=== PATIENT | male | born 1955 | race Caucasian/White ===

== ENCOUNTER 2023-06-01 12:47 | Outpatient (OUT) | payer MEDICARE, MEDICAID, SELFPAY | END 2023-06-01 12:48 | disposition home or self-care (01) | PROVIDERS: PCP Podiatrist Foot & Ankle Surgery; Visit Provider Podiatrist Foot & Ankle Surgery | DX: L60.3 Nail dystrophy (principal); L60.8 Other nail disorders; E11.40 Type 2 diabetes mellitus with diabetic neuropathy, unspecified | CPT/HCPCS: 11721 ==

== ENCOUNTER 2023-06-13 13:02 | Outpatient (OUT) | payer MEDICARE, MEDICAID, SELFPAY | END 2023-06-13 13:03 | disposition home or self-care (01) | LOC: WC 13:03 | PROVIDERS: PCP Podiatrist Foot & Ankle Surgery; Visit Provider Physician Assistant | DX: L60.8 Other nail disorders (principal) | CPT/HCPCS: G0463 ==

== ENCOUNTER 2023-09-07 12:45 | Outpatient (OUT) | payer MEDICARE, MEDICAID, SELFPAY | END 2023-09-07 12:46 | disposition home or self-care (01) | LOC: WC 12:46 | PROVIDERS: PCP Podiatrist Foot & Ankle Surgery; Visit Provider Podiatrist Foot & Ankle Surgery | DX: I73.9 Peripheral vascular disease, unspecified (principal); L60.3 Nail dystrophy; E11.40 Type 2 diabetes mellitus with diabetic neuropathy, unspecified | CPT/HCPCS: 11721 ==

== ENCOUNTER 2023-11-30 14:43 | Outpatient (OUT) | payer MEDICARE, MEDICAID, SELFPAY ==
--- OUTSIDE RECORDS SUMMARY | 2023-11-30 15:02 | XMS_ITS | CCD ---
Author Name Unknown Address [address] [place] [id number] Organization [facility] Care Team Providers Care Collection Teller Name Role Phone RICHY OWENS Attending Unavailable BRENNA, DR BARTNO Primary Care Unavailable RICHY OWENS Admitting Unavailable RICHY OWENS Attending Unavailable BRENNA, DR BARTON Primary Care Unavailable RICHY OWENS Admitting Unavailable RICHY OWENS Attending Unavailable BRENNA, DR BARTON Primary Care Unavailable RICHY OWENS Admitting Unavailable RICHY OWENS Attending Unavailable BRENNA, DR BARTON Primary Care Unavailable RICHY OWENS Admitting Unavailable MANJULA NEAL Attending Unavailable Scar Handy MD Primary Care Provider Problems Active Problems Problem Classification Problem Date Documented Da te Episodic/Chronic Cataract (1 source) Unspecified cataract; Translations: [UNSPECIFIED CATARACT] Onset: 09-02-2022 Chronic Diabetes mellitus with complications (7 sources) Type 2 diabetes mellitus with diabetic neuropathy, unspecified; Translations: [Type 2 diabetes mellitus with hyperglycemia] Onset: 05-28-2022 Chronic Mood disorders (1 source) Mood disorders; Translations: [DEPRESSION UNSPECIFIED] Onset: 09-02-2022 Other diseases of veins and lymphatics (1 source) Lymphedema, not elsewhere classified; Translations: [LYMPHEDEMA NOT ELSEWHERE CLASSIFIED] Onset: 09-02-2022 Chronic Other nutritional; endocrine; and metabolic disorders (1 source) Morbid (severe) obesity due to excess calories; Translations: [MORBID SEVERE OBES D/T EXCESS ARMANDO] Onset: 09-02-2022 Chronic Peripheral and visceral atherosclerosis (1 source) Peripheral vascular disease, unspecified; Translations: [PERIPHERAL VASCULAR DISEASE UNS] Onset: 09-02-2022 Chronic Past or Other Problems Problem Classification Problem Date Documented Date Episodic/Chronic Mycoses (1 source) Tinea unguium; Translations: [TINEA UNGUIUM] Onset: 09-02-2022 Episodic Other diseases of veins and lymphatics (1 source) Venous insufficiency (chronic) (peripheral); Translations: [VENOUS INSUFF CHRONIC PERIPHERAL] Onset: 09-02-2022 Episodic Other skin disorders (5 sources) Corns and callosities; Translations: [CORNS AND CALLOSITIES] Onset: 09-02-2022 Episodic Other skin disorders (1 source) Nail dystrophy; Translations: [NAIL DYSTROPHY] Onset: 11-30-2022 Episodic Other skin disorders (1 source) Onycholysis; Translations: [ONYCHOLYSIS] Onset: 09-02-2022 Episodic Residual codes; unclassified (1 source) Localized edema; Translations: [LOCALIZED EDEMA] Onset: 11-30-2022 Episodic Spondylosis; intervertebral disc disorders; other back problems (1 source) Sciatica, unspecified side; Translations: [SCIATICA UNSPECIFIED SIDE] Onset: 09-02-2022 Episodic Results Test Name Value Interpretation Reference Range Facil ity Hemoglobin A1Con 02-04-2022 HEMOGLOBIN A1c 7.0 % of total Hgb High <5.7 No rthern [place] [facility] [employer] Intern Comment on above: Order Comment: [facility] performed at: [facility], [address] [place] [address], [address] [place] [address], [id number], [employer] Specialist: Josep Amos MD [facility] Collection Date/Time: [facility] Results Received Date/Time: [facility] Reported Date/Time: Result Comment: For someone without known diabetes, a hemoglobin A1c value of 6.5% or greater indicates that they may have diabetes and this should be confirmed with a follow-up test. For someone with known diabetes, a value <7% indicates that their diabetes is well controlled and a value greater than or equal to 7% indicates suboptimal control. A1c targets should be individualized based on duration of diabetes, age, comorbid conditions, and other considerations. Currently, no consensus exists regarding use of hemoglobin A1c for diagnosis of diabetes for children. Performed By: #### 1 0231A, 968T, A1C, 42A #### [facility] [address] [place] [address] Q - CBC W/DIFF AND PLTon BASOABS 39 cells/uL Normal 0-200 [facility] Specialist Comment on above: Order Comment: [facility] performed at: [employer], [address] [facility], [address] [place] [address], [address] [place] [address], [employer] Specialist: Josep Amos MD [facility] Collection Date/Time: [facility] Results Received Date/Time: [facility] Reported Date/Time: Performed By: #### 1 0231A, 968T, A1C, 42A #### [facility] [address] [place] [address] Basophils/100 WBC (Bld) 0.7 % Normal [facility] Specialist Comment on above: Order Comment: [facility] performed at: [employer] [facility] [employer], [facility], [address] [place] [address], [address] [place] [address], [address] [place] [address], [employer] Specialist: Josep Amos MD [facility] Collection Date/Time: [facility] Results Received Date/Time: [facility] Reported Date/Time: Performed By: #### 1 0231A, 968T, A1C, 42A #### [facility] [address] [place] [address] EOSABS 218 cells/uL Normal 15-500 [facility] Specialist Comment on above: Order Comment: [facility] performed at: [employer], [facility], [address] [facility], [address] [place] [address], [address] [place] [address], [employer] Specialist: Josep Amos MD [facility] Date/Time: [facility] Results Received Date/Time: [facility] Reported Date/Time: Performed By: #### 1 0231A, 968T, A1C, 42A #### [facility] [address] [place] [address] Eosinophils/100 WBC (Bld) 3.9 % Normal [facility] Specialist Comment on above: Order Comment: [facility] performed at: [employer], [facility], [address] [place] [address], [address] [place] [address], [address] [place] [address], [employer] Specialist: Josep Amos MD [facility] Date/Time: [facility] Results Received Date/Time: [facility] Reported Date/Time: Performed By: #### 1 0231A, 968T, A1C, 42A #### [facility] [address] [place] [address] Erythrocyte distribution width (RBC) [Ratio] 13.2 % Normal 11.0-15.0 [facility] Management Retail Intern Comment on above: Order Comment: [facility] performed at: [employer], [facility], [address] [facility], [address] [place] [address], [address] [place] [address], [employer] Specialist: Josep Amos MD [facility] Date/Time: [facility] Results Received Date/Time: [facility] Reported Date/Time: Performed By: #### 1 0231A, 968T, A1C, 42A #### [facility] [address] [place] [address] Hematocrit (Bld) [Volume fraction] 39.4 % Normal 38.5-50.0 [facility] Management [employer] Intern Comment on above: Order Comment: [facility] performed at: [facility], [address] [facility], [address] [place] [address], [address] [place] [address], [employer] Specialist: Josep Amos MD [facility] Date/Time: [facility] Results Received Date/Time: [facility] Reported Date/Time: Performed By: #### 1 0231A, 968T, A1C, 42A #### [facility] [address] [place] [address] Hemoglobin (Bld) [Mass/Vol] 13.1 g/dL Low 13.2-17.1 [facility] Management Retail Intern Comment on above: Order Comment: [facility] performed at: [employer], [facility], [address] [facility], [address] [place] [address], [address] [place] [address], [employer] Specialist: Josep Amos MD [facility] Date/Time: [facility] Results Received Date/Time: [facility] Reported Date/Time: Performed By: #### 1 0231A, 968T, A1C, 42A #### [facility] [address] [place] [address] Lymphocytes (Bld) [#/Vol] 1.288 10*3/uL Normal 850-3900 [facility] Management Retail Intern Comment on above: Order Comment: [facility] performed at: [employer], [facility], [address] [place] [address], [address] [place] [address], [address] [place] [address], [employer] Specialist: Josep Amos MD [facility] Date/Time: [facility] Results Received Date/Time: [facility] Reported Date/Time: Performed By: #### 1 0231A, 968T, A1C, 42A #### [facility] [address] [place] [address] Lymphocytes/100 WBC (Bld) 23.0 % Normal [facility] Management Retail Intern Comment on above: Order Comment: [facility] performed at: [employer], [facility], [address] [place] [address], [address] [place] [address], [address] [place] [address], [employer] Specialist: Josep Amos MD [facility] Date/Time: [facility] Results Received Date/Time: [facility] Reported Date/Time: Performed By: #### 1 0231A, 968T, A1C, 42A #### [facility] [address] [place] [address] MCH (RBC) [Entitic mass] 29.2 pg Normal 27.0-33.0 [facility] Management Retail Intern Comment on above: Order Comment: [facility] performed at: [facility], [address] [facility], [address] [place] [address], [address] [place] [address], [employer] Specialist: Josep Amos MD [facility] Date/Time: [facility] Results Received Date/Time: [facility] Reported Date/Time: Performed By: #### 1 0231A, 968T, A1C, 42A #### [facility] [address] [place] [address] MCHC (RBC) [Mass/Vol] 33.2 g/dL Normal 32.0-36.0 [facility] Specialist Comment on above: Order Comment: [facility] performed at: [employer], [facility], [address] , [address] [place] [address], [address] [place] [address], [employer] Specialist: Josep Amos MD [facility] Date/Time: [facility] Results Received Date/Time: [facility] Reported Date/Time: Performed By: #### 1 0231A, 968T, A1C, 42A #### [facility] [address] [place] [address] MCV (RBC) [Entitic vol] 87.9 fL Normal 80.0-100.0 [facility] [employer] Intern Comment on above: Order Comment: [facility] performed at: [employer], [facility], [address] , [address] [place] [address], [address] [place] [address], [employer] Specialist: Josep Amos MD [facility] Date/Time: [facility] Results Received Date/Time: [facility] Reported Date/Time: Performed By: #### 1 0231A, 968T, A1C, 42A #### [facility] [address] [place] [address] MONOABS 414 cells/uL Normal 200-950 [facility] Management Retail Intern Comment on above: Order Comment: [facility] performed at: [employer], [address] , [address] [place] [address], [address] [place] [address], [employer] Specialist: Josep Amos MD [facility] Date/Time: [facility] Results Received Date/Time: [facility] Reported Date/Time: Performed By: #### 1 0231A, 968T, A1C, 42A #### [facility] [address] [place] [address] Monocytes/100 WBC (Bld) 7.4 % Normal [facility] [employer] Intern Comment on above: Order Comment: [facility] performed at: [employer], [facility], [address] [place] [address], [address] [place] [address], [address] [place] [address], [employer] Specialist: Josep Amos MD [facility] Date/Time: [facility] Results Received Date/Time: [facility] Reported Date/Time: Performed By: #### 1 0231A, 968T, A1C, 42A #### [facility] [address] [place] [address] Neutrophils (Bld) [#/Vol] 3.64 10*3/uL Normal 3851-1304 [facility] Management Retail Intern Comment on above: Order Comment: [facility] performed at: [employer], [facility], [address] [place] [address], [address] [place] [address], [address] [place] [address], [employer] Specialist: Josep Amos MD [facility] Date/Time: [facility] Results Received Date/Time: [facility] Reported Date/Time: Performed By: #### 1 0231A, 968T, A1C, 42A #### [facility] [address] [place] [address] Neutrophils/100 WBC (Bld) 65 % Normal [facility] Management [employer] Intern Comment on above: Order Comment: [facility] performed at: [facility], [address] [place] [address], [address] [place] [address], [address] [place] [address], [employer] Specialist: Josep Amos MD [facility] Collection Date/Time: [facility] Results Received Date/Time: [facility] Reported Date/Time: Performed By: #### 1 0231A, 968T, A1C, 42A #### [facility] [address] [place] [address] Platelet mean volume (Bld) [Entitic vol] 10.4 fL Normal 7.5-12.5 [facility] Management Retail Intern Comment on above: Order Comment: [facility] performed at: [employer], [facility], [address] , [address] [place] [place], [address] [place] [address], [employer] Specialist: Josep Amos MD [facility] Date/Time: [facility] Results Received Date/Time: [facility] Reported Date/Time: Performed By: #### 1 0231A, 968T, A1C, 42A #### [facility] [address] [place] [address] Platelets (Bld) [#/Vol] 208 10*3/uL Normal 140-400 [facility] Comment on above: Order Comment: [facility] performed at: [employer], [facility], [address] [facility], [address] [place] [address], [address] [place] [address], [employer] Specialist: Josep Amos MD [facility] Date/Time: [facility] Results Received Date/Time: [facility] Reported Date/Time: Performed By: #### 1 0231A, 968T, A1C, 42A #### [facility] [address] [place] [address] RBC (Bld) [#/Vol] 4.48 10*6/uL Normal 4.20-5.80 [facility] Comment on above: Order Comment: [facility] performed at: [employer], [facility], [address] [facility], [address] [place] [address], [address] [place] [address], [employer] Specialist: Josep Amos MD [facility] Collection Date/Time: [facility] Results Received Date/Time: [facility] Reported Date/Time: Performed By: #### 1 0231A, 968T, A1C, 42A #### [facility] [address] [place] [address] WBC (Bld) [#/Vol] 5.6 10*3/uL Normal 3.8-10.8 [facility] Comment on above: Order Comment: [facility] performed at: [employer], [facility], [address] [place] [address], [address] [place] [address], [address] [place] [address], [employer] Specialist: Josep Amos MD [facility] Date/Time: [facility] Results Received Date/Time: [facility] Reported Date/Time: Performed By: #### 1 0231A, 968T, A1C, 42A #### [facility] [address] [place] [address] Q - COMPREHENSIVE METABOLIC PANEL W/EGFRon 02-04-2022 Albumin [Mass/Vol] 4.1 g/dL Normal 3.6-5.1 [facility] Comment on above: Order Comment: [facility] performed at: [employer], [facility], [address] [place] [address], [address] [place] [address], [address] [place] [address], [employer] Specialist: Josep Amos MD [facility] Collection Date/Time: [facility] Results Received Date/Time: [facility] Reported Date/Time: Performed By: #### 1 0231A, 968T, A1C, 42A #### [facility] [address] [place] [address] Albumin/Globulin [Mass ratio] 1.6 {ratio} Normal 1.0-2.5 [facility] Specialist Comment on above: Order Comment: [facility] performed at: [employer], [facility], [address] [place] [address], [address] [place] [address], [address] [place] [address], [employer] Specialist: Josep Amos MD [facility] Collection Date/Time: [facility] Results Received Date/Time: [facility] Reported Date/Time: Performed By: #### 1 0231A, 968T, A1C, 42A #### [facility] [address] [place] [address] ALP [Catalytic activity/Vol] 76 U/L Normal 35-144 [facility] Management [employer] Intern Comment on above: Order Comment: [facility] performed at: [employer], [address] [place] [address], [address] [place] [address], [address] [place] [address], [employer] Specialist: Josep Amos MD [facility] Date/Time: [facility] Results Received Date/Time: [facility] Reported Date/Time: Performed By: #### 1 0231A, 968T, A1C, 42A #### [facility] [address] [place] [address] ALT [Catalytic activity/Vol] 21 U/L Normal 9-46 [facility] Management [facility] Intern Comment on above: Order Comment: [facility] performed at: [employer], [address] [place] [address], [address] [place] [address], [phone], [employer] Specialist: Josep Amos MD [facility] Date/Time: [facility] Results Received Date/Time: [facility] Reported Date/Time: Performed By: #### 1 023, 968T, A1C, 42A #### [facility] [address] [place] [address] AST [Catalytic activity/Vol] 16 U/L Normal 10-35 [facility] Management Retail Intern Comment on above: Order Comment: [facility] performed at: [employer], [address] [place] [address], [address] [place] [address], [address] [place] [address], [employer] Specialist: Josep Amos MD [facility] Date/Time: [facility] Results Received Date/Time: [facility] Reported Date/Time: Performed By: #### 1 023, 968T, A1C, 42A #### [facility] [address] [place] [address] Bilirubin [Mass/Vol] 0.6 mg/dL Normal 0.2-1.2 [facility] Management [employer] Intern Comment on above: Order Comment: [facility] performed at: [facility], [facility], [address] [place] [address], [address] [place] [address], [address] [place] [address], [employer] Specialist: Josep Amos MD [facility] Date/Time: [facility] Results Received Date/Time: [facility] Reported Date/Time: Performed By: #### 1 0231A, 968T, A1C, 42A #### [facility] [address] [place] [address] BUN/CREA 26 NOT APPLICABLE Normal 6-22 [facility] Comment on above: Order Comment: [facility] performed at: [employer], [address] , [address] [place] [address], [address] [place] [address], [employer] Specialist: Josep Amos MD [facility] Date/Time: [facility] Results Received Date/Time: [facility] Reported Date/Time: Performed By: #### 1 0231A, 968T, A1C, 42A #### [facility] [address] [place] [address] Calcium [Mass/Vol] 9.0 mg/dL Normal 8.6-10.3 [facility] Comment on above: Order Comment: [facility] performed at: [facility], [facility], [address] [facility], [address] [place] [address], [address] [place] [address], [employer] Specialist: Josep Amos MD [facility] Collection Date/Time: [facility] Results Received Date/Time: [facility] Reported Date/Time: Performed By: #### 1 0231A, 968T, A1C, 42A #### [facility] [address] [place] [address] Chloride [Moles/Vol] 105 mmol/L Normal 98-110 [facility] Comment on above: Order Comment: [facility] performed at: [employer], [facility], [address] , [address] [place] [address], [address] [place] [address], [employer] Specialist: Josep Amos MD [facility] Date/Time: [facility] Results Received Date/Time: [facility] Reported Date/Time: Performed By: #### 1 0231A, 968T, A1C, 42A #### [facility] [address] [place] [address] CO2 [Moles/Vol] 29 mmol/L Normal 20-32 [facility] Management Retail Intern Comment on above: Order Comment: [facility] performed at: [employer], [facility], [address] [place] [address], [address] [place] [address], [phone], [employer] Specialist: Josep Amos MD [facility] Date/Time: [facility] Results Received Date/Time: [facility] Reported Date/Time: Performed By: #### 1 0231A, 968T, A1C, 42A #### [facility] [address] [place] [address] Creatinine [Mass/Vol] 0.92 mg/dL Normal 0.70-1.25 [facility] Management [facility] Intern Comment on above: Order Comment: [facility] performed at: [employer], [facility], [address] [place] [address], [address] [place] [address], [address] [place] [address], [employer] Specialist: Josep Amos MD [facility] Date/Time: [facility] Results Received Date/Time: [facility] Reported Date/Time: Result Comment: For patients >49 years of age, the reference limit for Creatinine is approximately 13% higher for people identified as -Trinid[place]. Performed By: #### 1 0231A, 968T, A1C, 42A #### [facility] [address] [place] [address] eGFRAA ([facility]) 102 mL/min/1.73m2 Normal > OR = 60 [facility] Comment on above: Order Comment: [facility] performed at: [employer], [facility], [address] [facility], [address] [place] [address], [phone], [employer] Specialist: Josep Amos MD [facility] Date/Time: [facility] Results Received Date/Time: [facility] Reported Date/Time: Performed By: #### 1 0231A, 968T, A1C, 42A #### [facility] [address] [place] [address] eGFRNAA ([facility]) 88 mL/min/1.73m2 Normal > OR = 60 [facility] Comment on above: Order Comment: [facility] performed at: [employer], [facility], [address] [place] [address], [address] [place] [address], [address] [place] [address], [employer] Specialist: Josep Amos MD [facility] Date/Time: [facility] Results Received Date/Time: [facility] Reported Date/Time: Performed By: #### 1 0231A, 968T, A1C, 42A #### [facility] [address] [place] [address] Globulin (S) [Mass/Vol] 2.5 g/dL Normal 1.9-3.7 [facility] Specialist Comment on above: Order Comment: [facility] performed at: [employer], [facility], [address] [place] [address], [address] [place] [address], [address] [place] [address], [employer] Specialist: Josep Amos MD [facility] Date/Time: [facility] Results Received Date/Time: [facility] Reported Date/Time: Performed By: #### 1 0231A, 968T, A1C, 42A #### [facility] [address] [place] [address] Glucose [Mass/Vol] 131 mg/dL High 65-99 [facility] Comment on above: Order Comment: [facility] performed at: [employer], [facility], [address] [place] [address], [address] [place] [address], [address] [place] [address], [employer] Specialist: Josep Amos MD [facility] Date/Time: [facility] Results Received Date/Time: [facility] Reported Date/Time: Result Comment: Fasting reference interval For someone without known diabetes, a glucose value >125 mg/dL indicates that they may have diabetes and this should be confirmed with a follow-up test. Performed By: #### 1 0231A, 968T, A1C, 42A #### [facility] Default [address] [place] [address] Potassium [Moles/Vol] 4.0 mmol/L Normal 3.5-5.3 [facility] Management Retail Intern Comment on above: Order Comment: [facility] Testing performed at: [facility], [address] [facility], [address] [place] [address], [address] [place] [address], [employer] Specialist: Josep Amos MD [facility] Collection Date/Time: [facility] Results Received Date/Time: [facility] Reported Date/Time: Performed By: #### 1 0231A, 968T, A1C, 42A #### [facility] [address] [place] [address] Protein [Mass/Vol] 6.6 g/dL Normal 6.1-8.1 [facility] Management Retail Intern Comment on above: Order Comment: [facility] performed at: [facility], [address] [place] [address], [address] [place] [address], [address] [place] [address], [employer] Specialist: Josep Amos MD [facility] Collection Date/Time: [facility] Results Received Date/Time: [facility] Reported Date/Time: Performed By: #### 1 0231A, 968T, A1C, 42A #### [facility] [address] [place] [address] Sodium [Moles/Vol] 140 mmol/L Normal 135-146 [facility] Management Retail Intern Comment on above: Order Comment: [facility] performed at: [facility], [address] [facility], [address] [place] [address], [address] [place] [address], [employer] Specialist: Josep Amos MD [facility] Date/Time: [facility] Results Received Date/Time: [facility] Reported Date/Time: Performed By: #### 1 0231A, 968T, A1C, 42A #### [facility] [address] [place] [address] Urea nitrogen [Mass/Vol] 24 mg/dL Normal 7-25 [facility] Management Retail Intern Comment on above: Order Comment: [facility] performed at: [employer], [facility], [address] , [address] [place] [address], [address] [place] [address], [employer] Specialist: Josep Amos MD [facility] Date/Time: [facility] Results Received Date/Time: [facility] Reported Date/Time: Performed By: #### 1 0231A, 968T, A1C, 42A #### [facility] [address] [place] [address] Q - Lipid Panelon 02-04-2022 Cholesterol [Mass/Vol] 123 mg/dL Normal <200 [facility] Management [employer] Intern Comment on above: Order Comment: [facility] performed at: [employer], [facility], [address] , [address] [place] [address], [address] [place] [address], [employer] Specialist: Josep Amos MD [facility] Date/Time: [facility] Results Received Date/Time: [facility] Reported Date/Time: Performed By: #### 1 0231A, 968T, A1C, 42A #### [facility] [address] [place] [address] Cholesterol in HDL [Mass/Vol] 30 mg/dL Low > OR = 40 [place] Management Retail Intern Comment on above: Order Comment: [facility] performed at: [employer], [facility], [address] , [address] [place] [address], [address] [place] [address], [employer] Specialist: Josep Amos MD [facility] Date/Time: [facility] Results Received Date/Time: [facility] Reported Date/Time: Performed By: #### 1 0231A, 968T, A1C, 42A #### [facility] [address] [place] [address] Cholesterol in LDL [Mass/Vol] 76 mg/dL Normal [facility] Intern Comment on above: Order Comment: [facility] performed at: [employer], [facility], [address] , [address] [place] [address], [address] [place] [address], [employer] Specialist: Josep Amos MD [facility] Date/Time: [facility] Results Received Date/Time: [facility] Reported Date/Time: Result Comment: Refe rence range: <100 Desirable range <100 mg/dL for primary prevention; <70 mg/dL for patients with CHD or diabetic patients with > or = 2 CHD risk factors. LDL-C is now calculated using the Emelia calculation, which is a validated novel method providing better accuracy than the Friedewald equation in the estimation of LDL-C. Micky OCHOA et al. ROSEMARIE. 2013;310(19): 0100-4887 (http://education.[employer]/faq/BBM618) Performed By: #### 1 0231A, 968T, A1C, 42A #### [facility] [address] [place] [address] Cholesterol.total/C holesterol in HDL [Mass ratio] 4.1 {ratio} Normal <5.0 [facility] Management [employer] Intern Comment on above: Order Comment: [facility] performed at: [facility], [address] [facility], [address] [place] [address], [phone], [employer] Specialist: Josep Amos MD [facility] Date/Time: [facility] Results Received Date/Time: [facility] Reported Date/Time: Performed By: #### 1 0231A, 968T, A1C, 42A #### [facility] [address] [place] [address] NON HDL CHOLESTEROL 93 mg/dL (calc) Normal <130 [facility] Management Retail Intern Comment on above: Order Comment: [facility] performed at: [employer], [facility], [address] , [address] [place] [address], [phone], [employer] Specialist: Josep Amos MD [facility] Date/Time: [facility] Results Received Date/Time: [facility] Reported Date/Time: Result Comment: For patients with diabetes plus 1 major ASCVD risk factor, treating to a non-HDL-C goal of <100 mg/dL (LDL-C of <70 mg/dL) is considered a therapeutic option. Performed By: #### 1 0231A, 968T, A1C, 42A #### [facility] [address] [place] [address] Triglyceride [Mass/Vol] 89 mg/dL Normal <150 [facility] Management Retail Intern Comment on above: Order Comment: [facility] performed at: [facility], [address], [address] [place], [address], [employer] Specialist: Josep Amos MD [facility] Date/Time: [facility] Results Received Date/Time: [facility] Reported Date/Time: Performed By: #### 1 0231A, 968T, A1C, 42A #### [facility] [address] [place] [address] Encounters Encounter Date Encounter Type Care Provider Facility Start: 11-16-2023 Telephone encounter [facility] Comment on above: Appointment Start: 11-08-2023 End: 11-08-2023 ambulatory MANJULA NEAL Not Available Start: 03-02-2023 End: 03-03-2023 ambulatory [facility] Facility:[facility]1 Start: 11-24-2022 End: 11-25-2022 ambulatory [facility] Facility:[facility] Start: 08-25-2022 End: 08-26-2022 ambulatory [facility] Facility:[facility]1 Start: 05-19-2022 End: 05-20-2022 ambulatory [facility] Facility:H1 Plan of Treatment Date Care Activity Detail Author Start: 12-09-2023 End: 12-09-2023 Patient encounter procedure 12/09/2023 11:00 AM EST Office Visit [facility] [address] [place] [address] Vidal Curry MD [address] [place] [facility] [place] [id number] [facility] Start: 06-24-2023 Influenza vaccination Influenza Vaccine [facility] Start: 2022 Fall Risk Screening Fall Risk Screening [facility] Start: 2007 Administration of varicella zoster vaccine Zoster (Shingles) Vaccine (1 of 2) [facility] Start: 1976 DTaP,Tdap and Td Vaccines (1 - Tdap) DTaP,Tdap and Td Vaccines (1 - Tdap) [facility] Start: 1975 Adult BMI Screening Adult BMI Screening [facility] Start: 1969 Depression Screening Depression Screening [facility] Start: 1969 Tobacco Screening Tobacco Screening [facility] Payers Date Payer Category Payer Medicaid [facility]ICA[facility] [place] MEDICA[place] 2022-Present [address] [place] [address] [id number] 1957 Medicaid [id number] 1957 Medicare [id number] 1959 Unknown [id number] 1957 Unknown [id number] 1957 Unknown [id number] 1957 Unknown [id number] 1957 Unknown [id number] 1957 Unknown [id number] Social History Date Type Detail Facility [facility] Start: 04-04-2019 End: 12-04-2020 History of Social function [facility] Start: 04-04-2019 End: 12-04-2020 Childcare [facility] Childcare Unknown [facility] Start: 1955 Sex Assigned At Not on file [facility] Note 11-16-2023 Telephone Encounter - Kristan Cunningham - 11/16/2023 2:40 PM ESTTelephone Encounter - ASA Jimenez - 11/16/2023 2:40 PM ESTTelephone Encounter - Cindy Peter CMA - 11/16/2023 2:40 PM EST Note Date & Type Note Facility 11-16-2023 Miscellaneous Notes Formattin g of this note might be different from the original. This is notification that we have received a referral for the patient. Please reach out to schedule new patient appointment in your office. Please check the referral tab in appt desk for details and to make sure to assign referral or schedule off of it. Thank you. LMOM for the patient to call and schedule their RN INTERNATIONAL appointment with [facility]. Phoned pt, lm on vm to contact office to schedule appt for RN INTERNATIONAL referral documented in this encounter [facility] Telephone encounter Note 11-16-2023 Telephone Encounter - Kristandelores Cunningham - 11/16/2023 2:40 PM EST Note Date & Type Note Facility 11-16-2023 Telephone encounter Note This is notification that we have received a referral for the patient. Please reach out to schedule new patient appointment in your office. Please check the referral tab in appt desk for details and to make sure to assign referral or schedule off of it. Thank you. [facility] Telephone encounter Note 11-16-2023 Telephone Encounter - ASA Jimenez - 11/16/2023 2:40 PM EST Note Date & Type Note Facility 11-16-2023 Telephone encount er Note LMOM for the patient to call and schedule their RN INTERNATIONAL appointment with [facility] Telephone encounter Note 11-16-2023 Telephone Encounter - Cindy Peter CMA - 11/16/2023 2:40 PM EST Note Date & Type Note Facility 11-16-2023 Telephone encount er Note Phoned pt, lm on to contact office to schedule appt for RN INTERNATIONAL referral [facility] Instructions Note Date & Type Note Facility Instructions Not on filedocumented in this en counter [facility] Summary Purpose Family History No Family History Records FoundNo Family History Records FoundNo Family History Records Found Advance Directives No Advanced Directives Records FoundNo Advanced Directives Records FoundNo Advanced Directives Records Found Additional Source Comments (unrecognized sect ion and content) No Status Records FoundNo Status Records FoundNo Status Records Found INFORMATION SOURCE (unrecogn ized section and content) DATE CREATED AUTHOR 02/06/2022 [facility] d[facility] Specialist DATE CREATED AUTHOR AUTHOR'S ORGANIZ ATION 03/03/2023 [facility] DATE CREATED AUTHOR AUTHOR'S ORGANIZ ATION 11/09/2023 [facility] Specialists EPIC Reason for Visit (unrecogniz ed section and content) Reason Onset Date Comments Appointment 11/16/2023 Care Teams (unrecognized sec tion and content) Collection Teller Relationship Specialty Start Date End Date Scar Handy MD [address] [place] [address] PCP - General Family Medicine 04/08/17 FOR RECORDS PERTAINING TO PATIENTS WHO ARE OR HAVE BEEN ENROLLED IN A CHEMICAL DEPENDENCY/SUBSTANCEABUSE PROGRAM, SOME INFORMATION MAY BE OMITTED. This clinical summary was aggregated from multiple sources. Caution should be exercised in using it in the provision of clinical care. This summary normalizes information from multiple sources, and as a consequence, information in this document may materially change the coding, format and clinical context of patient data. In addition, data may be omitted in some cases. CLINICAL DECISIONS SHOULD BE BASED ON THE PRIMARY CLINICAL RECORDS. [email or web address] [email or web address]. provides no warranty or guarantee of the accuracy or completeness of information in this document.
== END 2023-11-30 14:44 | disposition home or self-care (01) ==
LOC: WC 14:43
PROVIDERS: PCP Podiatrist Foot & Ankle Surgery; Visit Provider Podiatrist Foot & Ankle Surgery
DX: L60.3 Nail dystrophy (principal); E11.40 Type 2 diabetes mellitus with diabetic neuropathy, unspecified; I73.9 Peripheral vascular disease, unspecified
CPT/HCPCS: 11721

== ENCOUNTER 2024-02-29 15:17 | Outpatient (OUT) | payer MEDICARE, MEDICAID, SELFPAY | END 2024-02-29 15:18 | disposition home or self-care (01) | LOC: WC 15:17 | PROVIDERS: PCP Podiatrist Foot & Ankle Surgery; Visit Provider Podiatrist Foot & Ankle Surgery | DX: E11.40 Type 2 diabetes mellitus with diabetic neuropathy, unspecified (principal); E11.65 Type 2 diabetes mellitus with hyperglycemia; L60.3 Nail dystrophy | CPT/HCPCS: 11721 ==

== ENCOUNTER 2024-06-06 12:53 | Outpatient (OUT) | payer MEDICARE, SELFPAY ==
--- OUTSIDE RECORDS SUMMARY | 2024-06-06 13:16 | XMS_ITS | CCD ---
Author Organization [facility] Care Team Providers Care Human Capital Manager Name Role Phone RICHY OWENS Attending Alfa HANDY, DR BARTON Primary Care Unavailable RICHY OWENS Admitting Unavailable RICHY OWENS Attending Unavailable BRENNA, DR BARTON Primary Care Unavailable RICHY OWENS Admitting Unavailable RICHY OWENS Attending Unavailable BRENNA, DR BARTON Primary Care Unavailable RICHY OWENS Admitting Unavailable RICHY OWENS Attending Unavailable BRENNA, DR BARTON Primary Care Unavailable RICHY OWENS Admitting Unavailable Mick Handy MD Primary Care Provider [phone] BERRY CURRY Attending Unavailable GRETA MAHARAJ Referring Unavailable MICK HANDY Primary Care Unavailable GRETA MAHARAJ Attending Unavailable JESSI GONZALEZ Attending Unavailab JESSI Craft Attending Unavailab driss Medications Current Medications Medication Drug Class(es) Dates Sig (Normalized) Sig (Original) aspirin 81 mg delayed release oral tablet (1 source) Platelet Aggregation Inhibitor, Nonsteroidal Anti-inflammatory Drug take 1 tablet by mouth in the morning aspirin 81 mg Take 1 tablet (81 mg total) by mouth in the morning. 0 Active atorvastatin 20 mg oral tablet (1 source) HMG-CoA Reductase Inhibitor take 1 tablet by mouth in the morning atorvastatin (LIPITOR) 20 mg tablet Take 1 tablet (20 mg total) by mouth in the morning. 0 Active furosemide 20 mg oral tablet (1 source) Loop Diuretic take 1 tablet by mouth once daily furosemide (LASIX) 20 mg tablet Take 1 tablet (20 mg total) by mouth daily. 0 Active gabapentin 600 mg oral tablet (1 source) Anti-epileptic Agent take 1 tablet by mouth in the morning, then take 1 tablet by mouth at bedtime gabapentin (NEURONTIN) 600 mg tablet Take 1 tablet (600 mg total) by mouth in the morning and 1 tablet (600 mg total) before bedtime. 0 Active glimepiride 4 mg oral tablet (1 source) Sulfonylurea take 1 tablet by mouth at bedtime glimepiride (AMARYL) 4 mg tablet Take 1 tablet (4 mg total) by mouth in the morning and at bedtime. 0 Active hydroCHLOROthiazide 12.5 mg / lisinopril 20 mg oral tablet (1 source) Thiazide Diuretic, Angiotensin Converting Enzyme Inhibitor take 1 tablet by mouth once in the morning lisinopril-hydroCH LOROthiazide (PRINZIDE,ZESTORET IC) 20-12.5 mg per tablet Take 1 tablet by mouth in the morning. 0 Active metFORMIN hydrochloride 850 mg oral tablet (1 source) Biguanide take 1 tablet by mouth in the morning, then take 1 tablet by mouth at mealtime metFORMIN (GLUCOPHAGE) 850 mg tablet Take 1 tablet (850 mg total) by mouth in the morning and 1 tablet (850 mg total) in the evening. Take with meals. 0 Active Problems Active Problems Problem Classification Problem Date Documented Da te Episodic/Chronic Cataract (1 source) Unspecified cataract; Translations: [UNSPECIFIED CATARACT] Onset: 09-02-2022 Chronic Diabetes mellitus with complications (7 sources) Type 2 diabetes mellitus with diabetic neuropathy, unspecified; Translations: [Type 2 diabetes mellitus with hyperglycemia] Onset: 05-28-2022 Chronic Essential hypertension (2 sources) Essential hypertension; Translations: [Essential (primary) hypertension] Onset: 12-09-2023 12-09-2023 Chronic Mood disorders (1 source) Mood disorders; [...] of total Hgb High <5.7 No rthern [place] Dumper Comment on above: Order Comment: [facility] performed at: [facility], [address] [place] [address], [address] [place] [address], [id number], Railroad Crane Operator: Josep Amos MD [facility] Collection Date/Time: [facility] [...] A1C, 42A #### [facility] Default [address] [place] [address] Q - CBC W/DIFF AND PLTon BASOABS 39 cells/uL Normal 0-200 [facility] Specialist Comment on above: Order Comment: [facility] performed at: [facility] [employer], [employer] [facility], [address] , [address] [place] [address], [address] [place] [address], Railroad Crane Operator: Josep Amos MD [facility] Collection Date/Time: [facility] Results Received Date/Time: [facility] Reported Date/Time: Performed By: #### 1 0231A, 968T, A1C, 42A #### [facility] [address] [place] [address] Basophils/100 WBC (Bld) 0.7 % Normal [facility] Specialist Comment on above: Order Comment: [facility] performed at: [facility] [employer], [employer], [address] [facility], [address] [place] [address], [address] [place] [address], Railroad Crane Operator: Josep Amos MD [facility] Date/Time: [facility] Results Received Date/Time: [facility] Reported Date/Time: Performed By: #### 1 0231A, 968T, A1C, 42A #### [facility] [address] [place] [address] EOSABS 218 cells/uL Normal 15-500 [facility] Specialist Comment on above: Order Comment: [facility] performed at: [facility], [employer], [address] , [address] [place] [address], [address] [place] [address], Railroad Crane Operator: Josep Amos MD [facility] Date/Time: [facility] Results Received Date/Time: [facility] Reported Date/Time: Performed By: #### 1 0231A, 968T, A1C, 42A #### [facility] [address] [place] [address] Eosinophils/100 WBC (Bld) 3.9 % Normal [facility] Specialist Comment on above: Order Comment: [facility] performed at: [facility], [facility] [facility], [address] , [address] [place] [address], [address] [place] [address], Railroad Crane Operator: Josep Amos MD [facility] Date/Time: [facility] Results Received Date/Time: [facility] Reported Date/Time: Performed By: #### 1 0231A, 968T, A1C, 42A #### [facility] [address] [place] [address] Erythrocyte distribution width (RBC) [Ratio] 13.2 % Normal 11.0-15.0 [facility] Dumper Comment on above: Order Comment: [facility] performed at: [facility] [employer], [employer] [facility], [address] [place] [address], [address] [place] [address], [address] [place] [address], Railroad Crane Operator: Josep Amos MD [facility] Date/Time: [facility] Results Received Date/Time: [facility] Reported Date/Time: Performed By: #### 1 0231A, 968T, A1C, 42A #### [facility] [address] [place] [address] Hematocrit (Bld) [Volume fraction] 39.4 % Normal 38.5-50.0 [facility] Dumper Comment on above: Order Comment: [facility] performed at: [employer] [facility], [address] [place] [address], [address] [place] [address], [address] [place] [address], Railroad Crane Operator: Josep Amos MD [facility] Date/Time: [facility] Results Received Date/Time: [facility] Reported Date/Time: Performed By: #### 1 0231A, 968T, A1C, 42A #### [facility] [address] [place] [address] Hemoglobin (Bld) [Mass/Vol] 13.1 g/dL Low 13.2-17.1 [facility] Dumper Comment on above: Order Comment: [facility] performed at: [employer] [facility], [address] [place] [address], [address] [place] [address], [address] [place] [address], Railroad Crane Operator: Josep Amos MD [facility] Date/Time: [facility] Results Received Date/Time: [facility] Reported Date/Time: Performed By: #### 1 0231A, 968T, A1C, 42A #### [facility] [address] [place] [address] Lymphocytes (Bld) [#/Vol] 1.288 10*3/uL Normal 850-3900 [facility] Dumper Comment on above: Order Comment: [facility] performed at: [facility], [employer] [facility], [address] , [address] [place] [address], [address] [place] [address], Railroad Crane Operator: Josep Amos MD [facility] Date/Time: [facility] Results Received Date/Time: [facility] Reported Date/Time: Performed By: #### 1 0231A, 968T, A1C, 42A #### [facility] [address] [place] [address] Lymphocytes/100 WBC (Bld) 23.0 % Normal [facility] Dumper Comment on above: Order Comment: [facility] performed at: [employer], [employer] [facility], [address] [facility], [address] [place] [address], [address] [place] [address], Railroad Crane Operator: Josep Amos MD [facility] Date/Time: [facility] Results Received Date/Time: [facility] Reported Date/Time: Performed By: #### 1 0231A, 968T, A1C, 42A #### [facility] [address] [place] [address] MCH (RBC) [Entitic mass] 29.2 pg Normal 27.0-33.0 [facility] Specialist Comment on above: Order Comment: [facility] performed at: [employer], [employer] [facility], [address] , [address] [place] [address], [address] [place] [address], Railroad Crane Operator: Josep Amos MD [facility] Date/Time: [facility] Results Received Date/Time: [facility] Reported Date/Time: Performed By: #### 1 0231A, 968T, A1C, 42A #### [facility] [address] [place] [address] MCHC (RBC) [Mass/Vol] 33.2 g/dL Normal 32.0-36.0 [facility] Specialist Comment on above: Order Comment: [facility] performed at: [employer], [facility] [facility], [address] [facility], [address] [place] [address], [address] [place] [address], Railroad Crane Operator: Josep Amos MD [facility] Date/Time: [facility] Results Received Date/Time: [facility] Reported Date/Time: Performed By: #### 1 0231A, 968T, A1C, 42A #### [facility] [address] [place] [address] MCV (RBC) [Entitic vol] 87.9 fL Normal 80.0-100.0 [facility] Specialist Comment on above: Order Comment: [facility] performed at: [employer], [employer] [facility], [address] [facility], [address] [place] [address], [address] [place] [address], Railroad Crane Operator: Josep Amos MD [facility] Date/Time: [facility] Results Received Date/Time: [facility] Reported Date/Time: Performed By: #### 1 0231A, 968T, A1C, 42A #### [facility] [address] [place] [address] MONOABS 414 cells/uL Normal 200-950 [facility] Comment on above: Order Comment: [facility] performed at: [employer] [facility], [address] [facility] [facility], [address] [place] [address], [address] [place] [address], Railroad Crane Operator: Josep Amos MD [facility] Date/Time: [facility] Results Received Date/Time: [facility] Reported Date/Time: Performed By: #### 1 0231A, 968T, A1C, 42A #### [facility] [address] [place] [address] Monocytes/100 WBC (Bld) 7.4 % Normal [place] Dumper Comment on above: Order Comment: [facility] performed at: [employer], [employer] [facility], [address] [place] [address], [address] [place] [address], [address] [place] [address], Railroad Crane Operator: Josep Amos MD [facility] Date/Time: [facility] Results Received Date/Time: [facility] Reported Date/Time: Performed By: #### 1 0231A, 968T, A1C, 42A #### [facility] [address] [place] [address] Neutrophils (Bld) [#/Vol] 3.64 10*3/uL Normal 1419-6198 [facility] Dumper Comment on above: Order Comment: [facility] performed at: [employer], [employer] [facility], [address] [place] [address], [address] [place] [address], [address] [place] [address], Railroad Crane Operator: Josep Amos MD [facility] Date/Time: [facility] Results Received Date/Time: [facility] Reported Date/Time: Performed By: #### 1 0231A, 968T, A1C, 42A #### [facility] [address] [place] [address] Neutrophils/100 WBC (Bld) 65 % Normal [facility] Dumper Comment on above: Order Comment: [facility] performed at: [employer], [employer] [facility], [address] [place] [address], [address] [place] [address], [address] [place] [address], Railroad Crane Operator: Josep Amos MD [facility] Collection Date/Time: [facility] Results Received Date/Time: [facility] Reported Date/Time: Performed By: #### 1 0231A, 968T, A1C, 42A #### [facility] [address] [place] [address] Platelet mean volume (Bld) [Entitic vol] 10.4 fL Normal 7.5-12.5 [facility] Dumper Comment on above: Order Comment: [facility] performed at: [employer], [employer] [facility], [address] , [address] [place] [address], [address] [place] [address], Railroad Cr[employer] Operator: Josep Amos MD [facility] Date/Time: [facility] Results Received Date/Time: [facility] Reported Date/Time: Performed By: #### 1 0231A, 968T, A1C, 42A #### [facility] [address] [place] [address] Platelets (Bld) [#/Vol] 208 10*3/uL Normal 140-400 [facility] Comment on above: Order Comment: [facility] Testing performed at: [employer], [employer] [facility], [address] [facility], [address] [place] [address], [address] [place] [address], Railroad Cr[employer] Operator: Jsoep Amos MD [facility] Date/Time: [facility] Results Received Date/Time: [facility] Reported Date/Time: Performed By: #### 1 0231A, 968T, A1C, 42A #### [facility] [address] [place] [address] RBC (Bld) [#/Vol] 4.48 10*6/uL Normal 4.20-5.80 [facility] Comment on above: Order Comment: [facility] performed at: [employer], [employer] [facility], [address] , [address] [place] [address], [address] [place] [address], Railroad Crane Operator: Josep Amos MD [facility] Date/Time: [facility] Results Received Date/Time: [facility] Reported Date/Time: Performed By: #### 1 0231A, 968T, A1C, 42A #### [facility] [address] [place] [address] WBC (Bld) [#/Vol] 5.6 10*3/uL Normal 3.8-10.8 [facility] Comment on above: Order Comment: [facility] Testing performed at: [employer], [employer] [facility], [address] , [address] [place] [address], [address] [place] [address], Railroad Cr[employer] Operator: Josep Amos MD [facility] Collection Date/Time: [facility] Results Received Date/Time: [facility] Reported Date/Time: Performed By: #### 1 0231A, 968T, A1C, 42A #### [facility] [address] [place] [address] Q - COMPREHENSIVE METABOLIC PANEL W/EGFRon 02-04-2022 Albumin [Mass/Vol] 4.1 g/dL Normal 3.6-5.1 [facility] Comment on above: Order Comment: [facility] Testing performed at: [employer], [employer] [facility], [address] [place] [address], [address] [place] [address], [address] [place] [address], Railroad Crane Operator: Josep Amos MD [facility] Collection Date/Time: [facility] Results Received Date/Time: [facility] Reported Date/Time: Performed By: #### 1 023, 968T, A1C, 42A #### [facility] Default [address] [place] [address] Albumin/Globulin [Mass ratio] 1.6 {ratio} Normal 1.0-2.5 [facility] Specialist Comment on above: Order Comment: [facility] Testing performed at: [employer], [employer] [facility], [address] [place] [address], [address] [place] [address], [address] [place] [address], Railroad Cr[employer] Operator: Josep Amos MD [facility] Collection Date/Time: [facility] Results Received Date/Time: [facility] Reported Date/Time: Performed By: #### 1 023, 968T, A1C, 42A #### [facility] Default [address] [place] [address] ALP [Catalytic activity/Vol] 76 U/L Normal 35-144 [facility] Dumper Comment on above: Order Comment: [facility] Testing performed at: [employer], [employer] [facility], [address] [place] [address], [address] [place] [address], [address] [place] [address], Railroad Crane Operator: Josep Amos MD [facility] Collection Date/Time: [facility] Results Received Date/Time: [facility] Reported Date/Time: Performed By: #### 1 023Arun, 968T, A1C, 42A #### [facility] Default [address] [place] [address] ALT [Catalytic activity/Vol] 21 U/L Normal 9-46 [facility] Dumper Comment on above: Order Comment: [facility] performed at: [employer], [employer] [facility], [address] [facility], [address] [place] [address], [address] [place] [address], Railroad Cr[employer] Operator: Josep Amos MD [facility] Collection Date/Time: [facility] Results Received Date/Time: [facility] Reported Date/Time: Performed By: #### 1 023, 968T, A1C, 42A #### [facility] Default [address] [place] [address] AST [Catalytic activity/Vol] 16 U/L Normal 10-35 [facility] Dumper Comment on above: Order Comment: [facility] performed at: [employer], [employer] [facility], [address] [place] [address], [address] [place] [address], [address] [place] [address], Railroad Cr[employer] Operator: Josep Amos MD [facility] Date/Time: [facility] Results Received Date/Time: [facility] Reported Date/Time: Performed By: #### 1 023Arun, 968T, A1C, 42A #### [facility] Default [address] [place] [address] Bilirubin [Mass/Vol] 0.6 mg/dL Normal 0.2-1.2 [facility] Dumper Comment on above: Order Comment: [facility] Testing performed at: [employer], [facility], [address] [facility], [address] [place] [address], [address] [place] [address], Railroad Cr[employer] Operator: Josep Amos MD [facility] Date/Time: [facility] Results Received Date/Time: [facility] Reported Date/Time: Performed By: #### 1 0231A, 968T, A1C, 42A #### [facility] Default [address] [place] [address] BUN/CREA 26 NOT APPLICABLE Normal 6-22 [facility] Specialist Comment on above: Order Comment: [facility] Testing performed at: [employer], [employer] [facility], [address] [facility], [address] [place] [address], [address] [place] [address], Railroad Cr[employer] Operator: Josep Amos MD [facility] Collection Date/Time: [facility] Results Received Date/Time: [facility] Reported Date/Time: Performed By: #### 1 0231A, 968T, A1C, 42A #### [facility] Default [address] [place] [address] Calcium [Mass/Vol] 9.0 mg/dL Normal 8.6-10.3 [facility] Specialist Comment on above: Order Comment: [facility] Testing performed at: [employer], [facility], [address] [facility] [facility], [address] [place] [address], [address] [place] [address], Railroad Cr[employer] Operator: Josep Amos MD [facility] Collection Date/Time: [facility] Results Received Date/Time: [facility] Reported Date/Time: Performed By: #### 1 0231A, 968T, A1C, 42A #### [facility] Default [address] [place] [address] Chloride [Moles/Vol] 105 mmol/L Normal 98-110 [facility] Dumper Comment on above: Order Comment: [facility] Testing performed at: [employer], [facility], [address] , [address] [place] [address], [address] [place] [address], Railroad Cr[employer] Operator: Josep Amos MD [facility] Collection Date/Time: [facility] Results Received Date/Time: [facility] Reported Date/Time: Performed By: #### 1 0231A, 968T, A1C, 42A #### [facility] Default [address] [place] [address] CO2 [Moles/Vol] 29 mmol/L Normal 20-32 [facility] Dumper Comment on above: Order Comment: [facility] Testing performed at: [employer], [facility], [address] [facility], [address] [place] [address], [address] [place] [address], Railroad Cr[employer] Operator: Josep Amos MD [facility] Collection Date/Time: [facility] Results Received Date/Time: [facility] Reported Date/Time: Performed By: #### 1 0231A, 968T, A1C, 42A #### [facility] Default [address] [place] [address] Creatinine [Mass/Vol] 0.92 mg/dL Normal 0.70-1.25 [facility] Dumper Comment on above: Order Comment: [facility] Testing performed at: [employer], [facility], [address] [facility], [address] [place] [address], [address] [place] [address], [employer] Operator: Josep Amos MD [facility] Collection Date/Time: [facility] Results Received Date/Time: [facility] Reported Date/Time: Result Comment: For patients >49 years of age, the reference limit for Creatinine is approximately 13% higher for people identified as -Argent[place]. Performed By: #### 1 , 968T, A1C, 42A #### [facility] [address] [place] [address] eGFRAA ([facility]) 102 mL/min/1.73m2 Normal > OR = 60 [facility] Dumper Comment on above: Order Comment: [facility] Testing performed at: [employer], [facility] [facility], [address] , [address] [place] [address], [address] [place] [address], Railroad Cr[employer] Operator: Josep Amos MD [facility] Collection Date/Time: [facility] Results Received Date/Time: [facility] Reported Date/Time: Performed By: #### 1 0231A, 968T, A1C, 42A #### [facility] Default [address] [place] [address] eGFRNAA ([facility]) 88 mL/min/1.73m2 Normal > OR = 60 [facility] Dumper Comment on above: Order Comment: [facility] Testing performed at: [employer], [employer] [facility], [address] [place] [address], [address] [place] [address], [address] [place] [address], Railroad Cr[employer] Operator: Josep Amos MD [facility] Collection Date/Time: [facility] Results Received Date/Time: [facility] Reported Date/Time: Performed By: #### 1 0231A, 968T, A1C, 42A #### [facility] Default [address] [place] [address] Globulin (S) [Mass/Vol] 2.5 g/dL Normal 1.9-3.7 [facility] Specialist Comment on above: Order Comment: [facility] Testing performed at: [employer], [facility] [facility], [address] [facility], [address] [place] [address], [address] [place] [address], Railroad Cr[employer] Operator: Josep Amos MD [facility] Date/Time: [facility] Results Received Date/Time: [facility] Reported Date/Time: Performed By: #### 1 0231A, 968T, A1C, 42A #### [facility] [address] [place] [address] Glucose [Mass/Vol] 131 mg/dL High 65-99 [facility] Specialist Comment on above: Order Comment: [facility] performed at: [employer], [employer] [facility], [address] [place] [address], [address] [place] [address], [address] [place] [address], Railroad [employer] Operator: Josep Amos MD [facility] Date/Time: [facility] Results Received Date/Time: [facility] Reported Date/Time: Result Comment: Fasting reference interval For someone without known diabetes, a glucose value >125 mg/dL indicates that they may have diabetes and this should be confirmed with a follow-up test. Performed By: #### 1 0231A, 968T, A1C, 42A #### [facility] [address] [place] [address] Potassium [Moles/Vol] 4.0 mmol/L Normal 3.5-5.3 [facility] Dumper Comment on above: Order Comment: [facility] performed at: [employer], [facility] [facility], [address] [place] [address], [address] [place] [address], [address] [place] [address], [employer] Operator: Josep Amos MD [facility] Date/Time: [facility] Results Received Date/Time: [facility] Reported Date/Time: Performed By: #### 1 0231A, 968T, A1C, 42A #### [facility] [address] [place] [address] Protein [Mass/Vol] 6.6 g/dL Normal 6.1-8.1 [facility] Dumper Comment on above: Order Comment: [facility] Testing performed at: [employer], [employer] [facility], [address] [place] [address], [address] [place] [address], [address] [place] [address], Railroad Crane Operator: Josep Amos MD [facility] Collection Date/Time: [facility] Results Received Date/Time: [facility] Reported Date/Time: Performed By: #### 1 0231A, 968T, A1C, 42A #### [facility] Default [address] [place] [address] Sodium [Moles/Vol] 140 mmol/L Normal 135-146 [facility] Comment on above: Order Comment: [facility] Testing performed at: [employer], [employer] [facility], [address] [place] [address], [address] [place] [address], [address] [place] [address], Railroad Crane Operator: Josep Amos MD [facility] Collection Date/Time: [facility] Results Received Date/Time: [facility] Reported Date/Time: Performed By: #### 1 0231A, 968T, A1C, 42A #### [facility] Default [address] [place] [address] Urea nitrogen [Mass/Vol] 24 mg/dL Normal 7-25 [facility] Dumper Comment on above: Order Comment: [facility] Testing performed at: [employer], [employer] [facility], [address] [place] [address], [address] [place] [address], [address] [place] [address], Railroad Crane Operator: Josep Amos MD [facility] Collection Date/Time: [facility] Results Received Date/Time: [facility] Reported Date/Time: Performed By: #### 1 0231A, 968T, A1C, 42A #### [facility] Default [address] [place] [address] Q - Lipid Panelon 02-04-2022 Cholesterol [Mass/Vol] 123 mg/dL Normal <200 [facility] Dumper Comment on above: Order Comment: [facility] performed at: [employer], [employer] [facility], [address] [place] [address], [address] [place] [address], [address] [place] [address], Railroad Crane Operator: Josep Amos MD [facility] Collection Date/Time: [facility] Results Received Date/Time: [facility] Reported Date/Time: Performed By: #### 1 0231A, 968T, A1C, 42A #### [facility] Default [address] [place] [address] Cholesterol in HDL [Mass/Vol] 30 mg/dL Low > OR = 40 [facility] Dumper Comment on above: Order Comment: [facility] Testing performed at: [employer], [employer] [facility], [address] [place] [address], [address] [place] [address], [address] [place] [address], Railroad Crane Operator: Josep Amos MD [facility] Collection Date/Time: [facility] Results Received Date/Time: [facility] Reported Date/Time: Performed By: #### 1 0231A, 968T, A1C, 42A #### [facility] [address] [place] [address] Cholesterol in LDL [Mass/Vol] 76 mg/dL Normal [facility] Dumper Comment on above: Order Comment: [facility] performed at: [employer], [facility] [facility], [address] [facility], [address] [place] [address], [address] [place] [address], Railroad Crane Operator: Josep Amos MD [facility] Date/Time: [facility] [...] LDL-C. Micky OCHOA et al. ROSEMARIE. 2013;310(19): 3050-8228 (http://education.Avexxin/faq/ESZ067) Performed By: #### 1 0231A, 968T, A1C, 42A #### [facility] [address] [place] [address] Cholesterol.total/C holesterol in HDL [Mass ratio] 4.1 {ratio} Normal <5.0 [facility] Dumper Comment on above: Order Comment: [facility] Testing performed at: [employer] [facility], [address] [facility], [address] [place] [address], [phone], Railroad Crane Operator: Josep Amos MD [facility] Collection Date/Time: [facility] Results Received Date/Time: [facility] Reported Date/Time: Performed By: #### 1 0231A, 968T, A1C, 42A #### [facility] Default [address] [place] [address] NON HDL CHOLESTEROL 93 mg/dL (calc) Normal <130 [facility] Dumper Comment on above: Order Comment: [facility] performed at: [employer], [facility] [facility], [address] [facility], [address] [place] [address], [phone], Railroad Crane Operator: Josep Amos MD [facility] Collection Date/Time: [facility] Results Received Date/Time: [facility] Reported Date/Time: Result Comment: For patients with diabetes plus 1 major ASCVD risk factor, treating to a non-HDL-C goal of <100 mg/dL (LDL-C of <70 mg/dL) is considered a therapeutic option. Performed By: #### 1 0231A, 968T, A1C, 42A #### [facility] [address] [place] [address] Triglyceride [Mass/Vol] 89 mg/dL Normal <150 [facility] Dumper Comment on above: Order Comment: [facility] Testing performed at: [facility], [facility], [address] [facility], [address] [place] [address], [place], [address], Railroad Crane Operator: Josep Amos MD [facility] Collection Date/Time: [facility] Results Received Date/Time: [facility] Reported Date/Time: Performed By: #### 1 0231A, 968T, A1C, 42A #### [facility] [address] [place] [address] Vital Signs Date Time Vital Sign Value Performing Clinician Faci lity 12-09-2023 10:41-0500 Body height 190.5 cm Berry Curry MD Work Phone: [facility] 12-09-2023 10:41-0500 Body mass index (BMI) [Ratio] 35.27 kg/m2 Berry Curry MD Work Phone: [facility] 12-09-2023 10:41-0500 Body weight 128 kg Berry Curry MD Work Phone: [facility] 12-09-2023 10:41-0500 Diastolic blood pressure 68 mm[Hg] Berry Curry MD Work Phone: [facility] 12-09-2023 10:41-0500 Heart rate 69 /min Berry Curry MD Work Phone: [facility] 12-09-2023 10:41-0500 SaO2% (BldA) [Mass fraction] 95 % Berry Curry MD Work Phone: [facility] 12-09-2023 10:41-0500 Systolic blood pressure 126 mm[Hg] Berry Curry MD Work Phone: [facility] Encounters Encounter Date Encounter Type Care Provider Facility Start: 05-09-2024 End: 05-09-2024 ambulatory JESSI GONZALEZ Not Available Start: 02-07-2024 End: 02-07-2024 ambulatory JESSI GONZALEZ Not Available Start: 12-09-2023 End: 12-09-2023 ambulatory BERRY CURRY [facility] Start: 12-09-2023 End: 12-09-2023 Office consultation new/estab patient 40 min Berry Curry MD Work Phone: [facility] Comment on above: Essential hypertensi on (Primary Dx) Start: 12-08-2023 Telephone encounter Cindy Peter CMA [facility] Start: 12-03-2023 Chart abstracting Scanning Pro vider External [facility] Start: 11-16-2023 Telephone encounter [facility] Comment on above: Appointment Start: 11-08-2023 End: 11-08-2023 ambulatory GRETA MAHARAJ Not Available Start: 03-02-2023 End: 03-03-2023 ambulatory [facility] Facility:H1 Start: 11-24-2022 End: 11-25-2022 ambulatory [facility] Facility:H1 Start: 08-25-2022 End: 08-26-2022 ambulatory [facility] Facility:H1 Start: 05-19-2022 End: 05-20-2022 ambulatory [facility] Facility:H1 Plan of Treatment Date Care Activity Detail Author Start: 12-09-2024 Adult BMI Screening Adult BMI Screening [facility] Start: 12-09-2023 End: 12-09-2023 Patient encounter procedure 12/09/2023 11:00 AM EST Office Visit [facility] [address] [place] [address] Berry Curry MD [address] [place] [address] [facility] Start: 06-24-2023 COVID-19 Vaccine (2022- season) COVID-19 Vaccine (2022-24 season) [facility] Start: 06-24-2023 [facility]enza [facility] Start: 2022 Fall Risk Screening [facility] Start: 2007 Administration of varicella zoster vaccine Zoster (Shingles) Vaccine (1 of 2) [facility] Start: 1976 DTaP,Tdap and Td Vaccines (1 - Tdap) DTaP,Tdap and Td Vaccines (1 - Tdap) [facility] Start: 1975 Adult BMI Follow Up Plan Adult BMI Follow Up Plan [facility] Start: 1975 Adult BMI Screening [facility] Start: 1969 Depression Screening [facility]ening [facility] Start: 1969 Tobacco Screening [facility]ening [facility] Start: 1955 Medicare Annual Wellness Visit Medicare Annual Wellness Visit [facility] Immunizations Immunization Date Immunization Notes Care Provider Vamsi mcguire 07-21-2011 influenza virus vaccine, unspecified formulation Scanning External [facility] Payers Date Payer Category Payer Medicaid [id number] 2022 Medicare MEDICARE MEDICAR E PART A & B [id number] 2022-Present [phone] [address] [place] [address] [id number] 1959 Medicaid [id number] 1957 Medicare [id number] 1959 Unknown [id number] 1957 Unknown [id number] 1957 Unknown [id number] 1957 Unknown [id number] 1957 Unknown [id number] 1957 Unknown [id number] 1957 Unknown [id number] 1957 Unknown [id number] 1957 Unknown [id number] Social History Date Type Detail Facility Tobacco smoking stat [facility] Tobacco smoking consumption unknown [facility] Start: 04-04-2019 End: 12-04-2020 History of Social function [facility] Start: 04-04-2019 End: 12-04-2020 Childcare [facility] Childcare Unknown [facility] Start: 1955 Sex Assigned At Not on file P [facility] Start: 12-03-2023 Tobacco smoking stat [facility] Never smoked tobacco [facility] Start: 12-03-2023 Tobacco use and exposure Smokeless tobacco non-user [facility] Start: 12-09-2023 Alcohol intake Current drinke r of alcohol (finding) [facility] Clinical Notes 11-16-2023 to 12-09-2023 Berry Curry MD - 12/09/2023 11:00 AM ESTTelephone Encounter - Cindy Peter, [facility] - 12/08/2023 3:02 PM ESTTelephone Encounter - Cindy Peter, [facility] - 12/08/2023 3:02 PM EST Note Date & Type Note Facility 12-09-2023 History of Presen t illness Narrative Cornell Sellers Date of visit: 12/09/2023 Date of : 1955 Age: 68 y.o. There is no problem list on file for this patient. No Known Allergies Current Outpatient Medications Medication Sig Dispense Refill aspirin 81 mg Take 1 tablet (81 mg total) by mouth in the morning. atorvastatin (LIPITOR) 20 mg tablet Take 1 tablet (20 mg total) by mouth in the morning. furosemide (LASIX) 20 mg tablet Take 1 tablet (20 mg total) by mouth daily. gabapentin (NEURONTIN) 600 mg tablet Take 1 tablet (600 mg total) by mouth in the morning and 1 tablet (600 mg total) before bedtime. glimepiride (AMARYL) 4 mg tablet Take 1 tablet (4 mg total) by mouth in the morning and at bedtime. lisinopril-hydroCHLOROthiazide (PRINZIDE,ZESTORETIC) 20-12.5 mg per tablet Take 1 tablet by mouth in the morning. metFORMIN (GLUCOPHAGE) 850 mg tablet Take 1 tablet (850 mg total) by mouth in the morning and 1 tablet (850 mg total) in the evening. Take with meals. No current facility-administered medications for this visit. 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 He is mostly limited by his neuropathy from his back issues but otherwise doing okay He had an ECG which was unremarkable Past Medical History: Diagnosis Date Diabetes mellitus ([facility]) Hyperlipidemia Hypertension PAD (peripheral artery disease) ([facility]) No data recorded No data recorded No data recorded Past Surgical History: Procedure Laterality Date FOOT SURGERY Right 2017 Family History Problem Relation Age of Onset No Known Problems Mother Stroke Father Heart disease Father Social History Socioeconomic History Marital status: Single Spouse name: Not on file Number of children: Not on file Years of education: Not on file Highest education level: Not on file Occupational History Not on file Tobacco Use Smoking status: Never Smokeless tobacco: Never Vaping Use Vaping Use: Never used Substance and Sexual Activity Alcohol use: Yes Alcohol/week: 2.0 standard drinks of alcohol Types: 2 Cans of beer per week Drug use: Never Sexual activity: Defer Other Topics Concern Caffeine Use Yes Social History Narrative Not on file Social Determinants of Health Financial Resource Strain: Not on file Food Insecurity: No Food Insecurity (12/09/2023) Hunger Screening Food Insecurity - Worry: Never True Food Insecurity - Inability: Never True Transportation Needs: Not on file Physical Activity: Not on file Stress: Not on file Social Connections: Not on file Interpersonal Safety: Not on file Housing Instability: Not on file Review of Systems Review of Systems Neurological: Positive for numbness. Psychiatric/Behavioral: Positive for depression. Allergic/Immunologic: Positive for environmental allergies. CARDIOVASCULAR: Please review HPI. Physical Examination General appearance: Alert, oriented and cooperative. In no acute distress. Skin: Warm and dry to touch. Head: Normocephalic, without obvious abnormality, atraumatic. Ears, Nose, Mouth, Throat: Throat clear without erythema or exudate. Dentition intact. Eyes: Conjunctivae unremarkable, EOM intact. Neck: No JVD, No carotid bruit. Neck supple, trachea midline. Respiratory: Clear to auscultation bilaterally, no use of accessory muscles. Cardiovascular: RRR with normal S1 and S2 with no murmurs. Gastrointestinal: Soft, non-tender. Bowel sounds normal. Musculoskeletal: No peripheral edema. Neurologic: Oriented to time, person and place, affect appropriate. No focal/major motor defects noted. Psychiatric: Appropriate mood, memory and judgement. VITAL SIGNS: BP 126/68 (BP Site: Left Arm, BP Postition: Sitting) Pulse 69 Ht 190.5 cm (6' 3 ) Wt 128 kg (282 lb 3.2 oz) SpO2 95% BMI 35.27 kg/m Orders Placed or Reconciled This Encounter Medications metFORMIN (GLUCOPHAGE) 850 mg tablet Sig: Take 1 tablet (850 mg total) by mouth in the morning and 1 tablet (850 mg total) in the evening. Take with meals. glimepiride (AMARYL) 4 mg tablet Sig: Take 1 tablet (4 mg total) by mouth in the morning and at bedtime. gabapentin (NEURONTIN) 600 mg tablet Sig: Take 1 tablet (600 mg total) by mouth in the morning and 1 tablet (600 mg total) before bedtime. lisinopril-hydroCHLOROthiazide (PRINZIDE,ZESTORETIC) 20-12.5 mg per tablet Sig: Take 1 tablet by mouth in the morning. atorvastatin (LIPITOR) 20 mg tablet Sig: Take 1 tablet (20 mg total) by mouth in the morning. furosemide (LASIX) 20 mg tablet Sig: Take 1 tablet (20 mg total) by mouth daily. aspirin 81 mg Sig: Take 1 tablet (81 mg total) by mouth in the morning. There are no discontinued medications. IMPRESSIONS/PLAN There are no diagnoses linked to this encounter. 1. No significant ECG changes patient can walk 2 miles couple times a week with no decline in function No immediate cardiac plans Given his risk factors at some point if there is any question of exercise intolerance then a stress test would be reasonable or if he would require general anesthesia for surgery such as on his knees then I think could need to have this stress test prior to that TODAYS ORDERS No orders of the defined types were placed in this encounter. FOLLOW UP No follow-ups on file. PCP: Mick Handy MD Referring Physician: Greta Maharaj, DO [address] [place] [address] documented in this encounter [facility] 12-08-2023 Miscellaneous Notes Formattin g of this note might be different from the original. Left message for patient to remind them to bring their most current medication list with them to their appointment. documented in this encounter [facility] 12-08-2023 Telephone encount er Note Left message for patient to remind them to bring their most current medication list with them to their appointment. [facility] 11-16-2023 Miscellaneous Notes Formattin g of this [...] the patient to call and schedule their RENAL CASE MANAGER appointment with PPC. Phoned pt lm on vm to contact office to schedule appt for RENAL CASE MANAGER referral documented in this encounter [facility] 11-16-2023 Telephone encount er Note This is notification that we have received a referral for the patient. Please reach out to schedule new patient appointment in your office. Please check the referral tab in appt desk for details and to make sure to assign referral or schedule off of it. [facility] you. [facility]-16-2023 Telephone encount er Note LMOM for the patient to call and schedule their RENAL CASE MANAGER appointment with [facility]. [facility] 11-16-2023 Telephone encount er Note Phoned pt, lm on to contact office to schedule appt for RENAL CASE MANAGER [facility] Evaluation note Diagnosis Essential hypertension- Primary Unspecified essential hypertension documented in this encounter [facility] Keep[facility]InstructionsNot on filedocumented in this encounter [facility] [employer] SystemInstructionsNot on filedocumented in this encounter [facility] DC SystemsInstructionsNot on filedocumented in this encounter [facility] SystemInstructionsNot on filedocumented in this encounter [facility] Summary Purpose Family History No Family History Records FoundNo Family History Records FoundNo Family History Records FoundNo Family History Records Found Advance Directives No Advanced Directives Records FoundNo Advanced Directives Records FoundNo Advanced Directives Records FoundNo Advanced Directives Records Found Additional Source Comments (unrecognized sect ion and content) No Status Records FoundNo Status Records FoundNo Status Records FoundNo Status Records Found INFORMATION SOURCE (unrecogn ized section and content) DATE CREATED AUTHOR 02/06/2022 [facility] DATE CREATED AUTHOR AUTHOR'S ORGANIZ ATION 03/03/2023 [facility] DATE CREATED AUTHOR AUTHOR'S ORGANIZ ATION 12/11/2023 [facility] DATE CREATED AUTHOR AUTHOR'S ORGANIZ ATION 05/13/2024 [facility]ists EPIC Reason for Visit (unrecogniz ed section and content) Reason Onset Date Comments Appointment 11/16/2023 Reason Comments New Patient RENAL CASE MANAGER HTN, IRREG HR YANETH ED W/ PTEKG, LABS AT PCP Specialty Diagnoses / Procedures Referred By Contblane t Referred To Contact Cardiology Diagnoses Type 2 diabetes mellitus with hyperglycemia, without long-term current use of insulin ([facility]) Primary hypertension Mixed hyperlipidemia Type 2 diabetes mellitus with diabetic neuropathy, without long-term current use of insulin ([facility]) Irregularly irregular cardiac rhythm Procedures [place] OFFICE OUTPATIENT VISIT 60-74 MINS HIGH MDM AMB REFERRAL TO CARDIOLOGY AMB REFERRAL TO CARDIOLOGY Greta Maharaj DO [address] [place] [address] Ronny Lazar MD [address] [place] [address] Referral ID Status Reason Start Date Expiration Date V isits Requested Visits Authorized [id number] Pending Review 11/08/2023 05/06/2024 1 1 Care Teams (unrecognized sec tion and content) Human Capital Manager Relationship Specialty Start Date End Date Mick Handy MD [address] [place] [id number] PCP - General Family Medicine 04/08/17 Human Capital Manager Relationship Specialty Start Date End Date Mick Handy MD [address] [place] [id number] PCP - General Family Medicine 04/08/17 Human Capital Manager Relationship Specialty Start Date End Date Mick Handy MD [address] [place] [id number] PCP - General Family Medicine 04/08/17 Human Capital Manager Relationship Specialty [place] [address] [place] [id number] PCP - General Family Medicine 04/08/17 FOR [...] BE BASED ON THE PRIMARY CLINICAL RECORDS. [facility]. provides no warranty or guarantee of the accuracy or completeness of information in this document.
== END 2024-06-06 12:54 | disposition home or self-care (01) ==
LOC: WC 12:54
PROVIDERS: PCP Podiatrist Foot & Ankle Surgery; Visit Provider Podiatrist Foot & Ankle Surgery
DX: E11.40 Type 2 diabetes mellitus with diabetic neuropathy, unspecified (principal); E11.65 Type 2 diabetes mellitus with hyperglycemia; L60.3 Nail dystrophy
CPT/HCPCS: 11721

== ENCOUNTER 2024-09-12 13:41 | Outpatient (OUT) | payer MEDICARE, SELFPAY ==
--- OUTSIDE RECORDS SUMMARY | 2024-09-12 13:51 | XMS_ITS | CCD ---
Author Organization [facility] Care Team Providers Care Customer Service Leader Name Role Phone RICHY OWENS Attending Unavailable BRENNA, DR BARTON Primary Care Unavailable RICHY OWENS Admitting Unavailable GRACIELA, RICHY Lima Attending Unavailable BRENNA, DR BARTON Primary Care Unavailable RICHY OWENS Admitting Unavailable RICHY OWENS Attending Unavailable BRENNA, DR BARTON Primary Care Unavailable RICHY OWENS Admitting Unavailable RICHY OWENS Attending Unavailable BRENNA, DR BARTON Primary Care Unavailable RICHY OWENS Admitting Unavailable Mick Handy MD Primary Care Provider [phone] BERRY CURRY Attending Unavailable GRETA MAHARAJ Referring Unavailable MICK HANDY Primary Care Unavailable Greta Maharaj DO Unavailable Cindy Reyes MD Primary Care Provider Rosalva Mane NP Unavailable GRETA MAHARAJ Attending Unavailable ROSALVA MANE Attending Unavailab driss MANE, ROSALVA Richards Attending Unavailab ROSALVA Craft Attending Unavailab ROSALVA Craft Referring Unavailab HELLEN Nicole Attending Unavailable Medications Current Medications Medication Drug Class(es) Dates Sig (Normalized) Sig (Original) aspirin 81 mg delayed release oral tablet (11 sources) Platelet Aggregation Inhibitor, Nonsteroidal Anti-inflammatory Drug take 1 tablet by mouth in the morning aspirin (ASPIR) 81 MG EC tablet Take 81 mg by mouth in the morning. Active atorvastatin 20 mg oral tablet (12 sources) HMG-CoA Reductase Inhibitor Start: 02-07-2024 End: 08-13-2024 take 1 tablet by mouth once daily atorvastatin (Lipitor) 20 MG tablet Indications: Mixed hyperlipidemia (CMS/HCC) Take 1 tablet (20 mg) by mouth Daily 90 tablet 1 08/13/2024 Active take 1 tablet by mouth in the mo rning atorvastatin (LIPITOR) 20 mg tablet Take 1 tablet (20 mg total) by mouth in the morning. 0 Active fluocinonide 0.0005 mg/mg topical ointment (10 sources) Corticosteroid Start: 08-11-2023 fluocinonide (Lidex) 0.05 % ointment Indications: Psoriasis vulgaris (CMS/HCC) Apply to affected areas bid prn 60 g 11 08/11/2023 Active furosemide 20 mg oral tablet (11 sources) Loop Diuretic Start: 07-28-2024 take 1 tablet by mouth once daily in the morning furosemide (Lasix) 20 MG tablet Indications: Venous stasis dermatitis of both lower extremities TAKE ONE TABLET BY MOUTH EVERY MORNING 90 tablet 3 07/28/2024 Active take 1 tablet by mouth once ginger y furosemide (LASIX) 20 mg tablet Take 1 tablet (20 mg total) by mouth daily. 0 Active gabapentin 600 mg oral tablet (11 sources) Anti-epileptic Agent Start: 05-09-2024 End: 05-09-2025 take 1 tablet by mouth in the morning gabapentin (Neurontin) 600 MG tablet Indications: Polyneuropathy associated with underlying disease (CMS/HCC) Take 1 tablet (600 mg) by mouth in the morning and 1 tablet (600 mg) before bedtime. 180 tablet 3 05/09/2024 05/09/2025 Active take 1 tablet by suzie th in the morning, then take 1 tablet by mouth at bedtime gabapentin (NEURONTIN) 600 mg tablet Alo e 1 tablet (600 mg total) by mouth in the morning and 1 tablet (600 mg total) before bedtime. 0 Active glimepiride 4 mg oral tablet (13 sources) Sulfonylurea Start: 11-15-2023 End: 08-13-2025 take 1 tablet by mouth once daily at bedtime glimepiride (Amaryl) 4 MG tablet Indications: Type 2 diabetes mellitus with diabetic neuropathy, without long-term current use of insulin (CMS/HCC) TAKE 1 TABLET BY MOUTH EVERY MORNING AND BEFORE BEDTIME 180 tablet 2 08/14/2024 Active hydroCHLOROthiazide 12.5 mg / lisinopril 20 mg oral tablet (11 sources) Thiazide Diuretic, Angiotensin Converting Enzyme Inhibitor Start: 10-12-2023 End: 10-11-2024 take 1 tablet by mouth in the morning lisinopril-hydroC HLOROthiazide 20-12.5 MG tablet Indications: Primary hypertension (CMS/HCC) Take 1 tablet by mouth in the morning. 100 tablet 3 10/12/2023 10/11/2024 Active take 1 tablet by suzie th once in the morning lisinopril-hydroCHLOROthiazide (PRINZIDE ,ZESTORETIC) 20-12.5 mg per tablet Take 1 tablet by mouth in the morning. 0 Active ammonium lactate 120 mg/ml topical lotion (10 sources) Start: 02-01-2024 ammonium lacta te (Lac-Hydrin) 12 % lotion 02/01/2024 Active metFORMIN hydrochloride 850 mg oral tablet (11 sources) Biguanide Start: 02-07-2024 take 1 tablet by mouth in the morning metFORMIN (Glucophage) 850 MG tablet Indications: Type 2 diabetes mellitus with diabetic neuropathy, without long-term current use of insulin (CMS/HCC) Take 1 tablet (850 mg) by mouth in the morning and 1 tablet (850 mg) in the evening. Take with meals. 180 tablet 3 02/07/2024 Active take 1 tablet by suzie th in the morning, then take 1 tablet by mouth at mealtime metFORMIN (GLUCOPHAGE) 850 mg tablet Take 1 tablet (850 mg total) by mouth in the morning and 1 tablet (850 mg total) in the evening. Take with meals. 0 Active Tapinarof (Vtama) 1 % cream (3 sources) Start: 08-21-2024 Tapinarof (Vta ma) 1 % cream Indications: Psoriasis vulgaris (CMS/HCC) Apply 2 g topically Daily 60 g 11 08/21/2024 Active triamcinolone acetonide 1 mg/ml topical cream (10 sources) Corticosteroid Start: 05-09-2023 triamcinolone (Kenalog) 0.1 % cream Indications: Other atopic dermatitis Apply topically 2 (two) times a day as needed for rash (use when flared, hold when clear). apply to trunk, arms, legs 454 g 05/09/2023 Active Problems Active Problems Problem Classification Problem Date Documented Teofilo beltran Episodic/Chronic Allergic reactions (10 sources) Atopic dermatitis; Translations: [Atopic dermatitis, unspecified] Onset: 02-28-2023 02-28-2023 Chronic Cataract (11 sources) Unspecified cataract; Translations: [Artificial lens present] Onset: 09-02-2022 02-28-2023 Chronic Chronic ulcer of skin (10 sources) Superficial skin ulcer of lower limb; Translations: [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 of skin] Onset: 02-28-2023 02-28-2023 Chronic Diabetes mellitus with complications (20 sources) Type 2 diabetes mellitus with diabetic neuropathy, unspecified; Translations: [Type 2 diabetes mellitus with hyperglycemia] Onset: 05-28-2022 Chronic Disorders of lipid metabolism (11 sources) Mixed hyperlipidemia; Translations: [Mixed hyperlipidemia] Onset: 02-28-2023 02-28-2023 Chronic Essential hypertension (14 sources) Essential hypertension; Translations: [Essential (primary) hypertension] Onset: 02-28-2023 12-09-2023 Chronic Mood disorders (1 source) Mood disorders; Translations: [DEPRESSION UNSPECIFIED] Onset: 09-02-2022 Osteoarthritis (10 sources) Primary gonarthrosis, bilateral; Translations: [Bilateral primary osteoarthritis of knee] Onset: 02-28-2023 02-28-2023 Chronic Other diseases of veins and lymphatics (1 source) Lymphedema, not elsewhere classified; Translations: [LYMPHEDEMA NOT ELSEWHERE CLASSIFIED] Onset: 09-02-2022 Chronic Other inflammatory condition of skin (10 sources) Psoriasis; Translations: [Psoriasis, unspecified] Onset: 02-28-2023 02-28-2023 Chronic Other inflammatory condition of skin (2 sources) Psoriasis vulgaris; Translations: [Psoriasis vulgaris] 08-21-2024 Chronic Other nervous system disorders (10 sources) Chronic pain; Translations: [Other chronic pain] Onset: 02-28-2023 02-28-2023 Chronic Other nervous system disorders (10 sources) Polyneuropathy associated with another disorder; Translations: [Polyneuropathy in diseases classified elsewhere] Onset: 02-28-2023 02-28-2023 Chronic Other non-traumatic joint disorders (4 sources) Pain in right knee; Translations: [Pain in joint, lower leg] 08-13-2024 Episodic Other nutritional; endocrine; and metabolic disorders (1 source) Morbid (severe) obesity due to excess calories; Translations: [MORBID SEVERE OBES D/T EXCESS ARMANDO] Onset: 09-02-2022 Chronic Other nutritional; endocrine; and metabolic disorders (10 sources) Morbid obesity; Translations: [Morbid (severe) obesity due to excess calories] Onset: 02-28-2023 02-28-2023 Chronic Peripheral and visceral atherosclerosis (11 sources) Peripheral vascular disease, unspecified; Translations: [Peripheral vascular disease, unspecified] Onset: 09-02-2022 02-28-2023 Chronic Spondylosis; intervertebral disc disorders; other back problems (10 sources) Degeneration of lumbar intervertebral disc; Translations: [Lumbar degenerative disc disease] Onset: 02-28-2023 02-28-2023 Chronic Past or Other Problems Problem Classification Problem Date Documented Date Episodic/Chronic Mycoses (1 source) Tinea unguium; Translations: [TINEA UNGUIUM] Onset: 09-02-2022 Episodic Other diseases of veins and lymphatics (1 source) Venous insufficiency (chronic) (peripheral); Translations: [VENOUS INSUFF CHRONIC PERIPHERAL] Onset: 09-02-2022 Episodic Other diseases of veins and lymphatics (11 sources) Disorder of vein of lower extremity; Translations: [Venous insufficiency (chronic) (peripheral)] Onset: 02-28-2023 07-27-2024 Episodic Other eye disorders (10 sources) Pigment dispersion syndrome of bilateral eyes; Translations: [Degeneration of iris (pigmentary), bilateral] Onset: 02-28-2023 02-28-2023 Episodic Other skin disorders (5 sources) Corns and callosities; Translations: [CORNS AND CALLOSITIES] Onset: 09-02-2022 Episodic Other skin disorders (1 source) Nail dystrophy; Translations: [NAIL DYSTROPHY] Onset: 11-30-2022 Episodic Other skin disorders (1 source) Onycholysis; Translations: [ONYCHOLYSIS] Onset: 09-02-2022 Episodic Residual codes; unclassified (1 source) Localized edema; Translations: [LOCALIZED EDEMA] Onset: 11-30-2022 Episodic Spondylosis; intervertebral disc disorders; other back problems (11 sources) Sciatica, unspecified side; Translations: [Spinal stenosis of lumbar region] Onset: 09-02-2022 02-28-2023 Episodic Results Test Name Value Interpretation Reference Range Facil ity HbA1c (Bld) [Mass fraction]o n 08-13-2024 Interpretation and review of laboratory results Abnormal [facility] - Hematology and Cell countson 08-13-2024 HbA1c (Bld) [Mass fraction] 7.5 % [facility] XR KNEE 4+ VIEWS LEFTon 07-25 XR KNEE 4+ VIEWS LEFT Exam: XR - LT KNEE COMPLETE MIN 3 VIEWS Clinical History: Chronic bilateral knee pain Reference Exam: No comparison FINDINGS: Minor medial knee joint space narrowing. Patellofemoral joint space narrowing. Patella floyd. No evidence of left knee joint effusion. Minor regional vascular atherosclerosis. Background osteopenia. IMPRESSION: Osteoarthritis preferentially affecting the patellofemoral articulation. Dictated on: 08/14/2024 10:44 AM This report has been electronically signed and approved by the interpreting Radiologist. Electronically Signed Philip John M.D. 2024-08-14 10:44:41 Normal Not Available XR KNEE 4+ VIEWS RIGHTon XR KNEE 4+ VIEWS RIGHT Exam: XR - RT KNEE COMPLETE MIN 3 VIEWS Clinical History: Chronic bilateral knee pain Reference Exam: No comparison FINDINGS: Medial knee joint space narrowing. Minor patellofemoral joint space narrowing. Patella floyd. Tiny right knee joint effusion. Minor regional vascular atherosclerosis. No evidence of acute fracture or other bony lesion. IMPRESSION: Osteoarthrosis. No fracture or other acute bony abnormality identified. Dictated on: 08/14/2024 10:44 AM This report has been electronically signed and approved by the interpreting Radiologist. Electronically Signed Philip John M.D. 2024-08-14 10:45:14 Normal Not Available Hemoglobin A1Con 02-04-2022 HEMOGLOBIN A1c 7.0 % of total Hgb High <5.7 No rthern [place] [employer] Comment on above: Order Comment: [facility] performed at: QPT, [facility] [address], [address] [facility], [address] [place], [address], Box Office Attendant: Josep Amos MD [facility] Collection Date/Time: [id number] [facility] Results Received Date/Time: [facility] Reported Date/Time: [...] A1C, 42A #### [facility] Default [address] [place] [address] Q - CBC W/DIFF AND PLTon BASOABS 39 cells/uL Normal 0-200 [facility] Specialist Comment on above: Order Comment: [facility] performed at: [employer] [facility] [address], [address] [place] [address], [address] [place] [address], [address] [place] [address], Box Office Attendant: Josep Amos MD [facility] Collection Date/Time: [facility] Results Received Date/Time: [facility] Reported Date/Time: Performed By: #### 1 0231A, 968T, A1C, 42A #### [facility] [address] [place] [address] Basophils/100 WBC (Bld) 0.7 % Normal [facility] Specialist Comment on above: Order Comment: [facility] performed at: [employer] [facility] [address], [address] [place] [address], [address] [place] [address], [address] [place] [address], Box Office Attendant: Josep Amos MD [facility] Collection Date/Time: [facility] Results Received Date/Time: [facility] Reported Date/Time: Performed By: #### 1 0231A, 968T, A1C, 42A #### [facility] [address] [place] [address] EOSABS 218 cells/uL Normal 15-500 [facility] [employer] Comment on above: Order Comment: [facility] performed at: [employer] [facility] [address], [address] [place] [address], [address] [place] [address], [address] [place] [address], Box Office Attendant: Josep Amos MD [facility] Date/Time: [facility] Results Received Date/Time: [facility] Reported Date/Time: Performed By: #### 1 0231A, 968T, A1C, 42A #### [facility] Default [address] [place] [address] Eosinophils/100 WBC (Bld) 3.9 % Normal [facility] [employer] Comment on above: Order Comment: [facility] performed at: [employer], [employer] [facility] [address], [address] [place] [address], [address] [place] [address], [id number], Box Office Attendant: Josep Amos MD [facility] Date/Time: [facility] Results Received Date/Time: [facility] Reported Date/Time: Performed By: #### 1 0231A, 968T, A1C, 42A #### [facility] [address] [place] [address] Erythrocyte distribution width (RBC) [Ratio] 13.2 % Normal 11.0-15.0 [facility] [employer] Comment on above: Order Comment: [facility] performed at: [employer], [employer] [facility] [address], [address] [place] [address], [address] [place] [address], [id number], Box Office Attendant: Josep Amos MD [facility] Date/Time: [facility] Results Received Date/Time: [facility] Reported Date/Time: Performed By: #### 1 0231A, 968T, A1C, 42A #### [facility] [address] [place] [address] Hematocrit (Bld) [Volume fraction] 39.4 % Normal 38.5-50.0 [facility] [employer] Comment on above: Order Comment: [facility] performed at: [employer], [employer] [facility] [address], [address] [place] [address], [address] [place] [address], [phone], Box Office Attendant: Josep Amos MD [facility] Date/Time: [facility] Results Received Date/Time: [facility] Reported Date/Time: Performed By: #### 1 0231A, 968T, A1C, 42A #### [facility] [address] [place] [address] Hemoglobin (Bld) [Mass/Vol] 13.1 g/dL Low 13.2-17.1 [facility] [employer] Comment on above: Order Comment: [facility] performed at: [employer], [employer] [facility] [address], [address] , [address] [place] [address], [address] [place] [address], Box Office Attendant: Josep Amos MD [facility] Date/Time: [facility] Results Received Date/Time: [facility] Reported Date/Time: Performed By: #### 1 0231A, 968T, A1C, 42A #### [facility] [address] [place] [address] Lymphocytes (Bld) [#/Vol] 1.288 10*3/uL Normal 850-3900 [facility] [employer] Comment on above: Order Comment: [facility] performed at: [employer], [employer] [facility] [address], [address] , [address] [place] [address], [address] [place] [address], Box Office Attendant: Josep Amos MD [facility] Date/Time: [facility] Results Received Date/Time: [facility] Reported Date/Time: Performed By: #### 1 0231A, 968T, A1C, 42A #### [facility] Default [address] [place] [address] Lymphocytes/100 WBC (Bld) 23.0 % Normal [facility] [employer] Comment on above: Order Comment: [facility] performed at: [employer], [employer] [facility] [address], [address] , [address] [place] [address], [address] [place] [address], Box Office Attendant: Josep Amos MD [facility] Collection Date/Time: [facility] Results Received Date/Time: [facility] Reported Date/Time: Performed By: #### 1 0231A, 968T, A1C, 42A #### [facility] Default [address] [place] [address] MCH (RBC) [Entitic mass] 29.2 pg Normal 27.0-33.0 [facility] Specialist Comment on above: Order Comment: [facility] performed at: [employer], [facility] [facility] [address], [address] [place] [address], [address] [place] [address], [address] [place] [address], Box Office Attendant: Josep Amos MD [facility] Collection Date/Time: [facility] Results Received Date/Time: [facility] Reported Date/Time: Performed By: #### 1 0231A, 968T, A1C, 42A #### [facility] Default [address] [place] [address] MCHC (RBC) [Mass/Vol] 33.2 g/dL Normal 32.0-36.0 [facility] Specialist Comment on above: Order Comment: [facility] performed at: [employer], [employer] [facility] [address], [address] [place] [address], [address] [place] [address], [address] [place] [address], Box Office Attendant: Josep Amos MD [facility] Collection Date/Time: [facility] Results Received Date/Time: [facility] Reported Date/Time: Performed By: #### 1 0231A, 968T, A1C, 42A #### [facility] Default [address] [place] [address] MCV (RBC) [Entitic vol] 87.9 fL Normal 80.0-100.0 [facility] Specialist Comment on above: Order Comment: [facility] performed at: [employer], [employer] [facility] [address], [address] [place] [address], [address] [place] [address], [address] [place] [address], Box Office Attendant: Josep Amos MD [facility] Collection Date/Time: [facility] Results Received Date/Time: [facility] Reported Date/Time: Performed By: #### 1 0231A, 968T, A1C, 42A #### [facility] Default [address] [place] [address] MONOABS 414 cells/uL Normal 200-950 [facility] [employer] Comment on above: Order Comment: [facility] performed at: QPT, [facility], [address], [address] [place] [address], [address] [place] [address], Box Office Attendant: Josep Amos MD [facility] Date/Time: [facility] Results Received Date/Time: [facility] Reported Date/Time: Performed By: #### 1 0231A, 968T, A1C, 42A #### [facility] Default [address] [place] [address] Monocytes/100 WBC (Bld) 7.4 % Normal [facility] Specialist Comment on above: Order Comment: [facility] performed at: [employer], [employer] [facility] [address], [address], [address] [place] [address], [address] [place] [address], Box Office Attendant: Josep Amos MD [facility] Date/Time: [facility] Results Received Date/Time: [facility] Reported Date/Time: Performed By: #### 1 0231A, 968T, A1C, 42A #### [facility] [address] [place] [address] Neutrophils (Bld) [#/Vol] 3.64 10*3/uL Normal 0082-0285 [facility] [employer] Comment on above: Order Comment: [facility] performed at: [employer], [employer] [facility] [address], [address], [address] [place] [address], [address] [place] [address], Box Office Attendant: Josep Amos MD [facility] Date/Time: [facility] Results Received Date/Time: [facility] Reported Date/Time: Performed By: #### 1 0231A, 968T, A1C, 42A #### [facility] Default [address] [place] [address] Neutrophils/100 WBC (Bld) 65 % Normal [facility] [employer] Comment on above: Order Comment: [facility] performed at: [facility], [employer] [facility] [address], [address], [address] [place] [address], [address] [place] [address], Box Office Attendant: Josep Amos MD [facility] Collection Date/Time: [facility] Results Received Date/Time: [facility] Reported Date/Time: Performed By: #### 1 0231A, 968T, A1C, 42A #### [facility] Default [address] [place] [address] Platelet mean volume (Bld) [Entitic vol] 10.4 fL Normal 7.5-12.5 [facility] Comment on above: Order Comment: [facility] performed at: [employer], [employer] [facility] [address], [address] [place] [address], [address] [place] [address], [address] [place] [address], Box Office Attendant: Josep Amos MD [facility] Collection Date/Time: [facility] Results Received Date/Time: [facility] Reported Date/Time: Performed By: #### 1 0231A, 968T, A1C, 42A #### [facility] Default [address] [place] [address] Platelets (Bld) [#/Vol] 208 10*3/uL Normal 140-400 [facility] Comment on above: Order Comment: [facility] Testing performed at: [employer], [employer] [facility] [address], [address] [facility], [address] [place] [address], [address] [place] [address], Box Office Attendant: Josep Amos MD [facility] Collection Date/Time: [facility] Results Received Date/Time: [facility] Reported Date/Time: Performed By: #### 1 0231A, 968T, A1C, 42A #### [facility] Default [address] [place] [address] RBC (Bld) [#/Vol] 4.48 10*6/uL Normal 4.20-5.80 [facility] Comment on above: Order Comment: [facility] performed at: [employer], [employer] [facility] [address], [address] , [address] [place] [address], [address] [place] [address], Box Office Attendant: Josep Amos MD [facility] Collection Date/Time: [facility] Results Received Date/Time: [facility] Reported Date/Time: Performed By: #### 1 0231A, 968T, A1C, 42A #### [facility] Default [address] [place] [address] WBC (Bld) [#/Vol] 5.6 10*3/uL Normal 3.8-10.8 Chyna marin [place] [employer] Comment on above: Order Comment: [facility] performed at: [employer], [employer] [facility] [address], [address] [facility], [address] [place] [address], [address] [place] [address], Box Office Attendant: Josep Amos MD [facility] Collection Date/Time: [facility] Results Received Date/Time: [facility] Reported Date/Time: Performed By: #### 1 0231A, 968T, A1C, 42A #### [facility] Default [address] [place] [address] Q - COMPREHENSIVE METABOLIC PANEL W/EGFRon 02-04-2022 Albumin [Mass/Vol] 4.1 g/dL Normal 3.6-5.1 Chyna rn [place] [employer] Comment on above: Order Comment: [facility] performed at: [employer] [facility] [address], [address] [facility], [address] [place] [address], [address] [place] [address], Box Office Attendant: Josep Amos MD [facility] Collection Date/Time: [facility] Results Received Date/Time: [facility] Reported Date/Time: Performed By: #### 1 0231A, 968T, A1C, 42A #### [facility] Default [address] [place] [address] Albumin/Globulin [Mass ratio] 1.6 {ratio} Normal 1.0-2.5 [facility] [employer] Comment on above: Order Comment: Quest Testing performed at: [employer] [facility], [address] [facility], [address] [place] [address], [address] [place] [address], Box Office Attendant: Josep Amos MD [facility] Collection Date/Time: [facility] Results Received Date/Time: [facility] Reported Date/Time: Performed By: #### 1 0231A, 968T, A1C, 42A #### [facility] [address] [place] [address] ALP [Catalytic activity/Vol] 76 U/L Normal 35-144 [facility] Comment on above: Order Comment: [facility] Testing performed at: [employer] [facility] [address], [address] [place] [address], [address] [place] [address], [address] [place] [address], Box Office Attendant: Josep Amos MD [facility] Collection Date/Time: [facility] Results Received Date/Time: [facility] Reported Date/Time: Performed By: #### 1 0231A, 968T, A1C, 42A #### [facility] [address] [place] [address] ALT [Catalytic activity/Vol] 21 U/L Normal 9-46 [facility] Specialist Comment on above: Order Comment: [facility] Testing performed at: [employer] [facility] [address], [address] [place] [address], [address] [place] [address], [address] [place] [address], Box Office Attendant: Josep Amos MD [facility] Collection Date/Time: [facility] Results Received Date/Time: [facility] Reported Date/Time: Performed By: #### 1 023, 968T, A1C, 42A #### [facility] [address] [place] [address] AST [Catalytic activity/Vol] 16 U/L Normal 10-35 [facility] Specialist Comment on above: Order Comment: [facility] Testing performed at: [employer] [facility] [address], [address] [place] [address], [address] [place] [address], [address] [place] [address], Box Office Attendant: Josep Amos MD [facility] Collection Date/Time: [facility] Results Received Date/Time: [facility] Reported Date/Time: Performed By: #### 1 0231A, 968T, A1C, 42A #### [facility] [address] [place] [address] Bilirubin [Mass/Vol] 0.6 mg/dL Normal 0.2-1.2 [facility] [place] [employer] Comment on above: Order Comment: [facility] Testing performed at: [employer] [facility] [address], [address] [facility], [address] [place] [address], [address] [place] [address], Box Office Attendant: Josep Amos MD [facility] Collection Date/Time: [facility] Results Received Date/Time: [facility] Reported Date/Time: Performed By: #### 1 0231A, 968T, A1C, 42A #### [facility] [address] [place] [address] BUN/CREA 26 NOT APPLICABLE Normal 6-22 [facility] [employer] Comment on above: Order Comment: Quest Testing performed at: [employer] [facility] [address], [address] [facility], [address] [place] [address], [address] [place] [address], Box Office Attendant: Josep Amos MD [facility] Collection Date/Time: [facility] Results Received Date/Time: [facility] Reported Date/Time: Performed By: #### 1 0231A, 968T, A1C, 42A #### [facility] [address] [place] [address] Calcium [Mass/Vol] 9.0 mg/dL Normal 8.6-10.3 Chyna [facility] [employer] Comment on above: Order Comment: Quest Testing performed at: [employer] [facility] [address], [address] [place] , [address] [place] [address], [address] [place] [address], Box Office Attendant: Josep Amos MD [facility] Collection Date/Time: [facility] Results Received Date/Time: [facility] Reported Date/Time: Performed By: #### 1 0231A, 968T, A1C, 42A #### [facility] [address] [place] [address] Chloride [Moles/Vol] 105 mmol/L Normal 98-110 [place] [employer] Comment on above: Order Comment: [facility] Testing performed at: [employer] [facility] [address] [facility], [address] [place] [address], [address] [place] [address], [address] [place] [address], Box Office Attendant: Josep Amos MD [facility] Collection Date/Time: [facility] Results Received Date/Time: [facility] Reported Date/Time: Performed By: #### 1 0231A, 968T, A1C, 42A #### [facility] [address] [place] [address] CO2 [Moles/Vol] 29 mmol/L Normal 20-32 [facility] Specialist Comment on above: Order Comment: [facility] Testing performed at: [employer] [facility] [address], [address] [facility], [address] [place] [address], [address] [place] [address], Box Office Attendant: Josep Amos MD [facility] Collection Date/Time: [facility] Results Received Date/Time: [facility] Reported Date/Time: Performed By: #### 1 0231A, 968T, A1C, 42A #### [facility] [address] [place] [address] Creatinine [Mass/Vol] 0.92 mg/dL Normal 0.70-1.25 [facility] Specialist Comment on above: Order Comment: [facility] Testing performed at: [employer] [facility] [address], [address] [place] [address], [address] [place] [address], [address] [place] [address], Box Office Attendant: Josep Amos MD [facility] Collection Date/Time: [facility] Results Received Date/Time: [facility] Reported Date/Time: Result Comment: For patients >49 years of age, the reference limit for Creatinine is approximately 13% higher for people identified as -Namibian. Performed By: #### 1 0231A, 968T, A1C, 42A #### [facility] Default [address] [place] [address] eGFRAA (Quest) 102 mL/min/1.73m2 Normal > OR = [address] [facility] Comment on above: Order Comment: [facility] Testing performed at: [employer] [facility], [address] [place] [address], [address] [place] [address], [address] [place] [address], Box Office Attendant: Josep Amos MD [facility] Collection Date/Time: [facility] Results Received Date/Time: [facility] Reported Date/Time: Performed By: #### 1 0231A, 968T, A1C, 42A #### [facility] Default [address] [place] [address] eGFRNAA (Quest) 88 mL/min/1.73m2 Normal > OR = 60 [facility] [employer] Comment on above: Order Comment: Quest Testing performed at: [employer] [facility] [address] [facility], [address] [facility], [address] [place] [address], [address] [place] [address], Box Office Attendant: Josep Amos MD [facility] Collection Date/Time: [facility] Results Received Date/Time: [facility] Reported Date/Time: Performed By: #### 1 0231A, 968T, A1C, 42A #### [facility] [address] [place] [address] Globulin (S) [Mass/Vol] 2.5 g/dL Normal 1.9-3.7 [facility] [employer] Comment on above: Order Comment: [facility] Testing performed at: [employer] [facility] [address] [facility], [address] [place] [address], [address] [place] [address], [address] [place] [address], Box Office Attendant: Josep Amos MD [facility] Collection Date/Time: [facility] Results Received Date/Time: [facility] Reported Date/Time: Performed By: #### 1 0231A, 968T, A1C, 42A #### [facility] Default [address] [place] [address] Glucose [Mass/Vol] 131 mg/dL High 65-99 [facility] [employer] Comment on above: Order Comment: Quest Testing performed at: [employer] [facility] [address], [address], [address] [place] [address], Box Office Attendant: Josep Amos MD [facility] Collection Date/Time: [facility] Results Received Date/Time: [facility] Reported Date/Time: Result Comment: Fasting reference interval For someone without known diabetes, a glucose value >125 mg/dL indicates that they may have diabetes and this should be confirmed with a follow-up test. Performed By: #### 1 0231A, 968T, A1C, 42A #### [facility] Default [address] [place] [address] Potassium [Moles/Vol] 4.0 mmol/L Normal 3.5-5.3 [facility] [employer] Comment on above: Order Comment: [facility] Testing performed at: [employer] [facility] [address], [address] [place] [address], [address] [place] [address], Box Office Attendant: Josep Amos MD [facility] Collection Date/Time: [facility] Results Received Date/Time: [facility] Reported Date/Time: Performed By: #### 1 0231A, 968T, A1C, 42A #### [facility] [address] [place] [address] Protein [Mass/Vol] 6.6 g/dL Normal 6.1-8.1 Chyna [place] [employer] Comment on above: Order Comment: [facility] Testing performed at: [employer] [facility] [address], [address] [place] [address], [address] [place] [address], Box Office Attendant: Josep Amos MD [facility] Collection Date/Time: [facility] Results Received Date/Time: [facility] Reported Date/Time: Performed By: #### 1 0231A, 968T, A1C, 42A #### [facility] Default [address] [place] [address] Sodium [Moles/Vol] 140 mmol/L Normal 135-146 Chyna rn [place] [employer] Comment on above: Order Comment: [facility] Testing performed at: [employer] [facility] [address], [address] [place] [address], [address] [place] [address], [address] [place] [address], Box Office Attendant: Josep Amos MD [facility] Collection Date/Time: [facility] Results Received Date/Time: [facility] Reported Date/Time: Performed By: #### 1 0231A, 968T, A1C, 42A #### [facility] Default [address] [place] [address] Urea nitrogen [Mass/Vol] 24 mg/dL Normal 7-25 [facility] [employer] Comment on above: Order Comment: [facility] Testing performed at: [employer] [facility] [address], [address] [place] [address], [address] [place] [address], [address] [place] [address], Box Office Attendant: Josep Amos MD [facility] Collection Date/Time: [facility] Results Received Date/Time: [facility] Reported Date/Time: Performed By: #### 1 0231A, 968T, A1C, 42A #### [facility] Default [address] [place] [address] Q - Lipid Panelon 02-04-2022 Cholesterol [Mass/Vol] 123 mg/dL Normal <200 [place] [employer] Comment on above: Order Comment: [facility] Testing performed at: [employer] [facility] [address], [address] [facility], [address] [place] [address], [address] [place] [address], Box Office Attendant: Josep Amos MD [facility] Collection Date/Time: [facility] Results Received Date/Time: [facility] Reported Date/Time: Performed By: #### 1 0231A, 968T, A1C, 42A #### [facility] Default [address] [place] [address] Cholesterol in HDL [Mass/Vol] 30 mg/dL Low > OR = 40 [place] [employer] Comment on above: Order Comment: [facility] Testing performed at: [employer] [facility] [address], [address] [facility], [address] [place] [address], [address] [place] [address], Box Office Attendant: Josep Amos MD [facility] Collection Date/Time: [facility] Results Received Date/Time: [facility] Reported Date/Time: Performed By: #### 1 0231A, 968T, A1C, 42A #### [facility] Default [address] [place] [address] Cholesterol in LDL [Mass/Vol] 76 mg/dL Normal [facility] [employer] Comment on above: Order Comment: [facility] Testing performed at: [employer] [facility] [address], [address] [place] , [address] [place] [address], [id number], Box Office Attendant: Josep Amos MD [facility] Collection Date/Time: [facility] Results Received Date/Time: [facility] Reported Date/Time: Result Comment: Refe rence range: <100 Desirable range <100 mg/dL for primary prevention; <70 mg/dL for patients with CHD or diabetic patients with > or = 2 CHD risk factors. LDL-C is now calculated using the Micky-Jennifer calculation, which is a validated novel method providing better accuracy than the Friedewald equation in the estimation of LDL-C. Micky OCHOA et al. ROSEMARIE. 2013;310(19): 0618-7842 (http://education.Cheers In/faq/JNV132) Performed By: #### 1 0231A, 968T, A1C, 42A #### [facility] Default [address] [place] [address] Cholesterol.total/Ch olesterol in HDL [Mass ratio] 4.1 {ratio} Normal <5.0 [facility] [employer] Comment on above: Order Comment: [facility] Testing performed at: [employer] [facility] [address], [address] [place] , [address] [place] [address], [id number], Box Office Attendant: Josep Amos MD [facility] Collection Date/Time: [facility] Results Received Date/Time: [facility] Reported Date/Time: Performed By: #### 1 0231A, 968T, A1C, 42A #### [facility] Default [address] [place] [address] NON HDL CHOLESTEROL 93 mg/dL (calc) Normal <130 [facility] [employer] Comment on above: Order Comment: [facility] Testing performed at: [employer] [facility] [address], [address] [place] [address], [address] [place] [address], [phone], Box Office Attendant: Josep Amos MD [facility] Collection Date/Time: [facility] Results Received Date/Time: [facility] Reported Date/Time: Result Comment: For patients with diabetes plus 1 major ASCVD risk factor, treating to a non-HDL-C goal of <100 mg/dL (LDL-C of <70 mg/dL) is considered a therapeutic option. Performed By: #### 1 023Arun, 968T, A1C, 42A #### [facility] Default [address] [place] [address] Triglyceride [Mass/Vol] 89 mg/dL Normal <150 [facility] [employer] Comment on above: Order Comment: [facility] Testing performed at: [employer] [facility], [address] [facility], [address] [place] [address], [phone], Box Office Attendant: Josep Amos MD [facility] Collection Date/Time: [facility] Results Received Date/Time: [facility] Reported Date/Time: Performed By: #### 1 0231A, 968T, A1C, 42A #### [facility] Default [address] [place] [address] Vital Signs Date Time Vital Sign Value Performing Clinician Grant gant 08-13-2024 13:54-0400 Body height 190.5 cm Rosalva Mane NAILING MACHINE OPERATOR Work Phone: [facility] 08-13-2024 13:54-0400 Body mass index (BMI) [Ratio] 35 kg/m2 Rosalva Mane NAILING MACHINE OPERATOR Work Phone: [facility] 08-13-2024 13:54-0400 Body weight 127.01 kg Rosalva Mane NAILING MACHINE OPERATOR Work Phone: [facility] 08-13-2024 13:54-0400 Diastolic blood pressure 72 mm[Hg] Rosalva Hipatrick NAILING MACHINE OPERATOR Work Phone: [facility] 08-13-2024 13:54-0400 Heart rate 78 /min Rosalva Rodrigueztrick NAILING MACHINE OPERATOR Work Phone: [facility] 08-13-2024 13:54-0400 Respiratory rate 18 /min Rosalva Rodrigueztrick NAILING MACHINE OPERATOR Work Phone: [facility] 08-13-2024 13:54-0400 SaO2% (BldA) [Mass fraction] 99 % Rosalva Rodrigueztrick NAILING MACHINE OPERATOR Work Phone: [facility] 08-13-2024 13:54-0400 Systolic blood pressure 130 mm[Hg] Rosalva Hipatrick NAILING MACHINE OPERATOR Work Phone: [facility] 12-09-2023 10:41-0500 Body height 190.5 cm Berry Curry MD Work Phone: [facility] 12-09-2023 10:41-0500 Body mass index (BMI) [Ratio] 35.27 kg/m2 Berry Curry MD Work Phone: [facility] [employer] [facility] 12-09-2023 10:41-0500 Body weight 128 kg Berry Curry MD Work Phone: [facility] [employer] 12-09-2023 10:41-0500 Diastolic blood pressure 68 mm[Hg] Berry Curry MD Work Phone: [facility] [employer] [facility] 12-09-2023 10:41-0500 Heart rate 69 /min Berry Curry MD Work Phone: [facility] [employer] 12-09-2023 10:41-0500 SaO2% (BldA) [Mass fraction] 95 % Berry Curry MD Work Phone: [facility] [employer] [facility] 12-09-2023 10:41-0500 Systolic blood pressure 126 mm[Hg] Berry Curry MD Work Phone: [facility] Encounters Encounter Date Encounter Type Care Provider Facility Start: 09-07-2024 End: 09-11-2024 Telephone encounter Matilde Trotter MA [facility] Start: 08-21-2024 End: 08-21-2024 Bamboo flowsheet Hellen Lora PROMOTIONS SPECIALIST-HEARING SCREEN COORDINATOR Work Phone: [facility] Start: 08-21-2024 End: 08-21-2024 Bamboo flowsheet Hellen Darlinger PROMOTIONS SPECIALIST-HEARING SCREEN COORDINATOR Work Phone: [facility] Start: 08-21-2024 End: 08-21-2024 Office outpatient visit 25 minutes Hellen Lora PROMOTIONS SPECIALIST-HEARING SCREEN COORDINATOR Work Phone: [facility] Comment on above: Psoriasis vulgaris ( CMS/HCC) (Primary Dx) Start: 08-21-2024 End: 08-21-2024 ambulatory HELLEN DARLINGER Not Available Start: 08-14-2024 End: 08-14-2024 Refill Greta Maharaj DO Work Phone: [facility] Comment on above: Type 2 diabetes zuleyma itus with diabetic neuropathy, without long-term current use of insulin (CMS/HCC) Start: 08-13-2024 End: 08-13-2024 Bamboo flowsheet Rosalva Mane NAILING MACHINE OPERATOR Work Phone: [facility] Start: 08-13-2024 End: 08-13-2024 Bamboo flowsheet Rosalva Mane NAILING MACHINE OPERATOR Work Phone: [facility] Start: 08-13-2024 End: 08-13-2024 Office outpatient visit 25 minutes Rosalva Mane NAILING MACHINE OPERATOR Work Phone: [facility] Comment on above: Acute pain of right knee (Primary Dx); Type 2 diabetes mellitus with diabetic neuropathy, without long-term current use of insulin (CMS/HCC); Acute pain of left knee; Primary hypertension (CMS/HCC) Start: 08-13-2024 End: 08-13-2024 Refill Cindy Reyes MD Work Phone: [facility] Comment on above: Type 2 diabetes zuleyma itus with diabetic neuropathy, without long-term current use of insulin ([facility]); Mixed hyperlipidemia ([facility]) Start: 07-27-2024 End: 07-28-2024 Refill Greta Momo Nicko DO Work Phone: [facility] Comment on above: Venous stasis dermat itis of both lower extremities Start: 05-09-2024 End: 05-09-2024 ambulatory ROSALVA MANE Not Available Start: 02-07-2024 End: 02-07-2024 ambulatory ROSALVA MANE Not Available Start: 12-09-2023 End: 12-09-2023 ambulatory BERRY CURRY [facility] Start: 12-09-2023 End: 12-09-2023 Office consultation new/estab patient 40 min Berry Curry MD Work Phone: [facility] Comment on above: Essential hypertensi on (Primary Dx) Start: 12-08-2023 [facility]phone [facility] Start: 12-03-2023 Chart abstracting Scanning Pro [employer]ider External [facility] Start: 11-16-2023 Telephone encounter Kristan Joiner [facility] Comment on above: Appointment Start: 11-08-2023 End: 11-08-2023 ambulatory GRETA MAHARAJ Not Available Start: 03-02-2023 End: 03-03-2023 ambulatory [facility] Facility:[facility] Start: 11-24-2022 End: 11-25-2022 ambulatory [facility] Facility:[facility] Start: 08-25-2022 End: 08-26-2022 ambulatory [facility] Facility:[facility] Start: 05-19-2022 End: 05-20-2022 ambulatory [facility] Facility:[facility] Procedures Date Procedure Procedure Detail Performing Clinician Start: 08-13-2024 Hemoglobin A1c/Hemoglobin.total in Blood Rosalva Mane NAILING MACHINE OPERATOR Work Phone: Plan of Treatment Date Care Activity Detail Author Start: 08-22-2025 End: 08-22-2025 Patient encounter procedure 08/22/2025 1:05 PM EDT Office Visit [facility] [address] [place] [address] Hellen Lora, PROMOTIONS SPECIALIST-HEARING SCREEN COORDINATOR [address] [place] [address] [facility] Start: 07-05-2025 Screening for malign ant neoplasm of colon [facility] Start: 05-09-2025 Medicare Annual Well ness (AWV) Medicare Annual Wellness (AWV) [facility] Start: 05-09-2025 Urine screening for protein Diabetes: Urine Protein Screening [facility] Start: 02-06-2025 Pneumococcal Vaccine : 65+ Years (1 of 2 - PCV) Pneumococcal Vaccine: 65+ Years (1 of 2 - PCV) [facility] Comment on above: Postponed from 09/20 (Patient Refused) Start: 12-09-2024 Adult BMI Screening Adult BMI Screen [facility] Start: 11-13-2024 End: 11-13-2024 Patient encounter procedure 11/13/2024 1:30 PM EST Office Visit [facility] [address] [place] [id number] Rosalva Mane NAILING MACHINE OPERATOR [address] [place], [place] [id number] [facility] Start: 08-21-2024 End: 08-21-2024 Patient encounter procedure [facility] Comment on above: Arrived Start: 08-13-2024 End: 08-13-2024 Patient encounter procedure [facility] Comment on above: Arrived Start: 08-13-2024 End: 08-13-2025 XR Knee - left 4 Views [facility] Comment on above: Expected: 08/13/2024 , Expires: 08/13/2025 Start: 08-13-2024 End: 08-13-2025 XR Knee - right 4 Views [facility] Work Phone: Comment on above: Expected: 08/13/2024 , Expires: 08/13/2025 Start: 08-09-2024 Hemoglobin A1c measurement Diabetes: Hemoglobin A1C [facility] Start: 06-24-2024 Influenza vaccination Influenza Vacc ine (#1) [facility] Start: 12-09-2023 End: 12-09-2023 Patient encounter procedure 12/09/2023 11:00 AM EST Office Visit [facility] [address] [place] [address] Berry Curry MD [address] [place] [address] [facility] Start: 06-24-2023 COVID-19 Vaccine ( season) COVID-19 Vaccine () [facility] Start: 06-24-2023 Influenza vaccination Influenza Vacc ine [facility] Start: 2022 Fall Risk Screening Fall Risk Screen ing [facility] Start: 07-24-2021 Glaucoma screening Diabetes: R etinopathy Screening [facility] Start: 2007 Administration of varicella zoster vaccine Zoster (Shingles) Vaccine (1 of 2) [facility] Start: 1976 DTaP,Tdap and Td Vac cines (1 - Tdap) DTaP,Tdap and Td Vaccines (1 - Tdap) [facility] Start: 1975 Adult BMI Follow Up Plan Adult BMI Follow Up Plan [facility] Start: 1975 Adult BMI Screening Adult BMI Screen ing [facility] Start: 1969 Depression Screening Depression Scre ening [facility] Start: 1969 Tobacco Screening Tobacco Screening [facility] Start: 1957 Medicare Annual Well ness Visit Medicare Annual Wellness Visit [facility] Start: 1957 Screening for malign ant neoplasm of colon [facility] Immunizations Immunization Date Immunization Notes Care Provider Fa cility 07-21-2011 influenza virus vaccine, whole virus Greta Nicko DO Work Phone: [facility] 07-21-2011 influenza virus vaccine, unspecified formulation Scanning External [facility] 08-05-2010 influenza virus vaccine, whole virus Greta Nicko DO Work Phone: [facility] 07-30-2009 influenza virus vaccine, whole virus Greta Nicko DO Work Phone: [facility] 08-09-2007 influenza virus vaccine, whole virus Greta Nicko DO Work Phone: [facility] Payers Date Payer Category Payer Medicaid [id number] 2022 Medicare [id number] 1957 Medicaid [id number] 1957 Medicare [id number] 1959 Unknown [id number] 1957 Unknown [id number] 2.16.84 0.1.676763.3.579.2.593 1957 Unknown [id number] 2.16.84 0.1.071731.3.579.2.593 1957 Unknown [id number] 2.16.84 0.1.648371.3.579.2.593 1957 Unknown [id number] 2.16.84 0.1.010672.3.579.2.593 1957 Unknown [id number] 2.16.8 40.1.499376.3.579.2.1286 1957 Unknown [id number] 2.16.84 0.1.665725.3.579.2.1259 1957 Unknown [id number] 2.16.84 0.1.035094.3.579.2.1259 1957 Unknown [id number] 2.16.84 0.1.683160.3.579.2.1259 1957 Unknown [id number] 2.16.84 0.1.594762.3.579.2.1259 1957 Unknown [id number] 2.16.84 0.1.259027.3.579.2.1259 1957 Unknown [id number] 2.16.84 0.1.204556.3.579.2.1259 1957 Unknown [id number] 2.16.84 0.1.626142.3.579.2.1259 Social History Date Type Detail Facility Tobacco smoking stat [facility] Tobacco smoking consumption unknown [facility] Start: 04-04-2019 End: 03-29-2023 History of Social function [facility] Start: 04-04-2019 End: 03-29-2023 Childcare [facility] Childcare Unknown [facility] Start: 1955 Sex Assigned At Not on file P [facility] Start: 03-28-2023 End: 12-03-2023 Tobacco smoking status FLIS Never smoked tobacco [facility] Start: 03-28-2023 End: 12-03-2023 Tobacco use and exposure Smokeless tobacco non-user [facility] Start: 12-09-2023 End: 08-21-2024 Alcohol intake Current drinker of alcohol (finding) [facility] Within the last year , have you been afraid of your partner or ex-partner? No [facility] Are you now , , , , never or living with a partner? Never [facility] How often to you hav e a drink containing alcohol? Monthly or less [facility] How many standard drinks containing alcohol do you have on a typical day? 1 or 2 [facility] How often do you hav e 6 or more drinks on 1 occasion? Never [facility] Do you feel stress - tense, restless, nervous, or anxious, or unable to sleep at night because your mind is troubled all the time - these days [OSQ] Not at all [facility] (I/We) worried wheth er (my/our) food would run out before (I/we) got money to buy more. Never true [facility] Start: 02-07-2024 Alcohol Comment caffeine: 4 pops gee ly [facility] Start: 01-05-2023 Gender identity Identifies as male gender (finding) [facility] Medical Equipment Procedure Code Equipment Code Equipment Origin al Text Equipment Identifier Dates [id number], [id number] Start: 10-12-2023 End: 10-11-2024 Clinical Notes 11-16-2023 to 09-11-2024 Telephone Encounter - Yazan Solorzano - 09/11/2024 2:08 PM ESTTelephone Encounter - Yazan Solorzano - 09/11/2024 2:08 PM ESTTelephone Encounter - Matilde Trotter MA - 09/07/2024 3:25 PM EST Note Date & Type Note Facility 09-11-2024 Telephone encount er Note HE DECLINED [facility] 09-11-2024 Miscellaneous Notes Formattin g of this note might be different from the original. HE DECLINED Please see if patient has had an eye exam done this year? If not can he come into the office to have done this week? documented in this encounter [facility] 09-07-2024 Telephone encount er Note Please see if patient has had an eye exam done this year? If not can he come into the office to have done this week? [facility] 08-21-2024 History of Presen t illness Narrative Images from the original note were not included. Follow up Diagnosis: psoriasis Location: back, arms and legs Last visit: 1 year ago Symptoms: not as itchy Status: improved Procedure performed: Shave biopsy Date of procedure: 06/20/2023 Treatments tried and failed: TAC 0.1% cream Current treatment: Fluocinonide (Lidex) 0.05% ointment-on the back as needed- uses daily sometimes BID, TAC 0.1% cream bid as needed on the arms and shoulders. All pertinent medical history, medications, and allergies were reviewed. General Exam: alert , oriented to person, place, and time , normal affect, well appearing, Unaccompanied A focused exam completed based on patient reported problems, see below: 1. Psoriasis vulgaris (CMS/HCC) Mid Back Well-marginated erythematous papules/plaques with silvery scale. Flaring today not yet at treatment goal. BSA 10%. The patient was informed that psoriasis is a chronic condition that can be controlled but not cured. Patient states he is not bothered enough by his psoriasis to start systemic treatment. Start Vtama cream. Sent to [place] at this time. Patient qualifies for PAP if needed. Patient to follow up if failing to improve on Vtama, otherwise can follow up in 1 year for refills. Tapinarof (Vtama) 1 % cream - Mid Back Apply 2 g topically Daily Related Medications fluocinonide (Lidex) 0.05 % ointment Apply to affected areas bid prn Next Visit: 1 year documented in this encounter [facility] 08-13-2024 History of Presen t illness Narrative Images from the original note were not included. Cornell Ritchie is a 68 y.o. male presents with chief complaint of Diabetes HPI: Diabetes Mellitus Patient presents for follow up of diabetes. Current symptoms include: none. Symptoms have stabilized and been well-controlled. Patient denies foot ulcerations and visual disturbances. Evaluation to date has included: hemoglobin A1C. Home sugars: patient does not check sugars. Last dilated eye exam: Has not gone in the last 2 years. Diabetes Pertinent negatives for diabetes include no chest pain and no fatigue. SUBJECTIVE: MEDICATIONS: ALLERGIES Current Outpatient Medications Medication Instructions ammonium lactate (Lac-Hydrin) 12 % lotion aspirin (ASPIR) 81 mg, Daily atorvastatin (LIPITOR) 20 mg, Oral, Daily Easy Touch Lancets 33G/Twist misc fluocinonide (Lidex) 0.05 % ointment Apply to affected areas bid prn furosemide (LASIX) 20 mg, Oral, Every morning gabapentin (NEURONTIN) 600 mg, Oral, 2 times daily glimepiride (AMARYL) 4 mg, Oral, 2 times daily glucose blood (True Metrix Blood Glucose Test) test strip 1 each, Other, Daily before breakfast Lancet Device misc 1 Lancet, In Vitro, Daily lisinopril-hydroCHLOROthiazide 20-12.5 MG tablet 1 tablet, Oral, Daily metFORMIN (GLUCOPHAGE) 850 mg, Oral, 2 times daily with meals triamcinolone (Kenalog) 0.1 % cream Topical, 2 times daily PRN, apply to trunk, arms, legs No Known Allergies PAST MEDICAL HISTORY: SOCIAL HISTORY SURGICAL HISTORY: Past Medical History: Diagnosis Date Bilateral artificial lens implant Cataract Hay fever Lumbago with sciatica, left side Lumbago with sciatica, right side Lumbar spinal stenosis Mild depression (CMS/HCC) Morbid obesity (CMS/HCC) h/o morbid obesity w/ wt loss Other chronic pain Scoliosis of lumbar spine, unspecified scoliosis type Skin rash skin boil, rash Swelling of ankle leg pain with walking, persistent numbness Social History Tobacco Use Smoking status: Never Smokeless tobacco: Never Vaping Use Vaping status: Never Used Substance Use Topics Alcohol use: Yes Alcohol/week: 2.0 - 3.0 standard drinks of alcohol Types: 2 - 3 Standard drinks or equivalent per week Comment: caffeine: 4 pops daily Drug use: Never Past Surgical History: Procedure Laterality Date CATARACT EXTRACTION 2012 [facility] 05/2019 neg repeat 2020 EXTERNAL EAR SURGERY Bilateral 1964 bilateral surgical procedure on ears, plastic surgery for prominence REVIEW OF SYMPTOMS: Review of Systems Constitutional: Negative. Negative for fatigue. HENT: Negative. Eyes: Negative. Respiratory: Negative. Negative for cough, shortness of breath and wheezing. Cardiovascular: Negative. Negative for chest pain and palpitations. Gastrointestinal: Negative. Genitourinary: Negative. Musculoskeletal: Negative. Skin: Negative. Neurological: Negative. Psychiatric/Behavioral: Negative. All other systems reviewed and are negative. Hematological: Negative. Endocrine: Negative. Allergic/Immunologic: Negative. OBJECTIVE: Vitals: 08/13/24 1354 BP: 130/72 Pulse: 78 Resp: 18 SpO2: 99% Physical Exam Vitals and nursing note reviewed. Cardiovascular: Rate and Rhythm: Normal rate and regular rhythm. Pulses: Normal pulses. Heart sounds: Normal heart sounds. Pulmonary: Effort: Pulmonary effort is normal. Breath sounds: Normal breath sounds. Abdominal: General: Abdomen is flat. Bowel sounds are normal. Palpations: Abdomen is soft. Musculoskeletal: General: Normal range of motion. Cervical back: Normal range of motion and neck supple. Right knee: Swelling and crepitus present. Left knee: Swelling and crepitus present. Skin: General: Skin is warm and dry. Neurological: General: No focal deficit present. Mental Status: He is oriented to person, place, and time. ASSESSMENT AND PLAN: Assessment/Plan Diagnoses and all orders for this visit: Acute pain of right knee - XR knee 4+ views right; Future Type 2 diabetes mellitus with diabetic neuropathy, without long-term current use of insulin (CMS/HCC)-stable continue on current medications - POCT GLYCOSYLATED HEMOGLOBIN (HGB A1C) Acute pain of left knee - XR knee 4+ views left; Future Primary hypertension (CMS/HCC)-stable continue on current medications. No follow-ups on file. 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 HTN, IRREG HR SCHED W/ PTEKG, LABS [...] Past Medical History: Diagnosis Date Diabetes mellitus ([facility]) Hyperlipidemia Hypertension PAD (peripheral artery disease) ([facility] [place] No data recorded No data recorded No data recorded Past Surgical History: Procedure Laterality Date FOOT SURGERY Right 2018 Family History Problem Relation Age of Onset [...] PCP: Mick Handy MD Referring Physician: Greta Maharaj DO [address] [place] [address] documented in this encounter [facility] 12-08-2023 Miscellaneous Notes Formattin g of this note might be different from the original. Left message for patient to remind them to bring their most current medication list with them to their appointment. documented in this encounter [facility] 12-08-2023 Telephone encount er Note Left message for patient to remind them to bring their most current medication list with them to their appointment. [facility] 11-16-2023 Miscellaneous Notes Formattin g of this [...] the patient to call and schedule their NAILING MACHINE OPERATOR appointment with [facility]. Phoned roopa pruitt on to contact office to schedule appt for NAILING MACHINE OPERATOR referral documented in this encounter [facility] 11-16-2023 Telephone encount er Note This is notification that we have received a referral for the patient. Please reach out to schedule new patient appointment in your office. Please check the referral tab in appt desk for details and to make sure to assign referral or schedule off of it. Thank you. [facility] 11-16-2023 Telephone encount er Note LMOM for the patient to call and schedule their NAILING MACHINE OPERATOR appointment with [facility]. [facility] 11-16-2023 Telephone encount er Note Phoned roopa pruitt to contact office to schedule appt for NAILING MACHINE OPERATOR referral [facility] [employer] Evaluation note Diagnosis Essential hypertension- Primary Unspecified essential hypertension [facility] Diagnosis Venous stasis dermatitis of both lower extremities documented in this encounter [facility] HealthcareEvaluation note* Diagnosis Type 2 diabetes mellitus with diabetic neuropathy, without long-term current use of insulin (CMS/HCC) Mixed hyperlipidemia (CMS/HCC) Mixed hyperlipidemia documented in this encounter [facility] HealthcareEvaluation note* Diagnosis Acute pain of right knee- Primary Type 2 diabetes mellitus with diabetic neuropathy, without long-term current use of insulin (CMS/HCC) Acute pain of left knee Primary hypertension (CMS/HCC) Unspecified essential hypertension [facility] Diagnosis Type 2 diabetes mellitus with diabetic neuropathy, without long-term current use of insulin (CMS/HCC) [facility]* Diagnosis Psoriasis vulgaris (CMS/HCC)- Primary Other psoriasis documented in this encounter [facility] HealthcareInstructionsNot on filedocumented in this encounterPro[facility] SystemInstructionsNot on filedocumented in this encounterProTwin City Hospital SystemInstructionsNot on filedocumented in this encounterProTwin City Hospital SystemInstructionsNot on filedocumented in this encounterSumma Health System Summary Purpose Family History No Family [...] section and content) DATE CREATED AUTHOR 02/06/2022 [facility] dical Specialist DATE CREATED AUTHOR AUTHOR'S ORGANIZ ATION 03/03/2023 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 HTN, IRREG HR YANETH ED W/ PTEKG, LABS AT P[facility] Specialty Diagnoses / Procedures Referred By Contac t Referred To Contact Cardiology Diagnoses Type 2 diabetes mellitus with hyperglycemia, without long-term current use of insulin (CMS-HCC) Primary hypertension Mixed hyperlipidemia Type 2 diabetes mellitus with diabetic neuropathy, without long-term current use of insulin (CMS-HCC) Irregularly irregular cardiac rhythm Procedures [place] OFFICE OUTPATIENT VISIT 60-74 MINS HIGH MDM AMB REFERRAL TO CARDIOLOGY AMB REFERRAL TO CARDIOLOGY Greta Maharaj DO [address] [place] [address] Ronny Lazar MD [address] [facility] [place] [address] Referral ID Status Reason Start Date Expiration Date V isits Requested Visits Authorized [id number] Pending Review 11/08/2023 05/06/2024 1 1 Reason Comments Med Refill Reason Comments Diabetes Care Teams (unrecognized sec tion and content) Customer Service Leader Relationship Specialty Start Date End Date Mick Handy MD [address] [facility] [place] [address] PCP - General Family Medicine 04/08/17 Customer Service Leader Relationship Specialty Start Date End Date Mick Handy MD [address] [facility] [place] [address] PCP - General Family Medicine 04/08/17 Customer Service Leader Relationship Specialty Start Date End Date Mick Handy MD [address] [facility] [place] [address] PCP - General Family Medicine 04/08/17 Customer Service Leader Relationship Specialty Start Date End Date Mick Handy MD [address] [facility] [place] [address] PCP - General Family Medicine 04/08/17 Customer Service Leader Relationship Specialty Start Date End Date Greta Maharaj DO [address] [place] [address] PCP - ACO Reach 12/23/23 Cindy Reyes MD [address] [place] [address] PCP - General Family Medicine 07/27/24 Rosalva Mane, NAILING MACHINE OPERATOR [address] [place] [address] Nurse Practitioner Family Medicine 07/27/24 Customer Service Leader Relationship Specialty Start Date End Date NickoGreta Momo [address] [place] [address] PCP - ACO Reach 12/23/23 Cindy Reyes MD [address] [place] [address] PCP - General Family Medicine 07/27/24 Rosalva Mane NP [address] [place] [address] Nurse Practitioner Family Medicine 07/27/24 Customer Service Leader Relationship Specialty Start Date End Date Greta Maharaj DO [address] [place] [address] PCP - ACO Reach 12/23/23 Cindy Reyes MD [address] [place] [address] PCP - General Family Medicine 07/27/24 Rosalva Mane NP [address] [place] [address] Nurse Practitioner Family Medicine 07/27/24 Customer Service Leader Relationship Specialty Start Date End Date Greta Maharaj DO [address] [place] [address] PCP - ACO Reach 12/23/23 Cindy Reyes MD [address] [place] [address] PCP - General Family Medicine 07/27/24 Rosalva Mane NP [address] [facility] [place] [address] Nurse Practitioner Family Medicine 07/27/24 Customer Service Leader Relationship Specialty Start Date End Date Greta Maharaj DO [address] [facility] [place] [address] PCP - ACO Reach 12/23/23 Cindy Reyes MD [address] [facility] [place] [address] PCP - General Family Medicine 07/27/24 Rosalva Mane NP [address] [facility] [place] [address] Nurse Practitioner Family Medicine 07/27/24 Customer Service Leader Relationship Specialty Start Date End Date Greta Maharaj DO [address] [facility] [place] [address] PCP - ACO Reach 12/23/23 Cindy Reyes MD [address] [facility] [place] [address] PCP - General Family Medicine 07/27/24 Rosalva Mane NP [address] [place] [address] Nurse Practitioner Family Medicine 07/27/24 FOR RECORDS PERTAINING TO PATIENTS WHO ARE [...] BE BASED ON THE PRIMARY CLINICAL RECORDS. [employer] [facility]. provides no warranty or guarantee of the accuracy or completeness of information in this document.
== END 2024-09-12 13:42 | disposition home or self-care (01) ==
LOC: WC 13:41
PROVIDERS: PCP Podiatrist Foot & Ankle Surgery; Visit Provider Physician Assistant
DX: E11.40 Type 2 diabetes mellitus with diabetic neuropathy, unspecified (principal); E11.65 Type 2 diabetes mellitus with hyperglycemia; L60.3 Nail dystrophy
CPT/HCPCS: 11721

== ENCOUNTER 2024-12-13 13:20 | Outpatient (OUT) | payer MEDICARE, SELFPAY | END 2024-12-13 13:21 | disposition home or self-care (01) | LOC: WC 13:21 | PROVIDERS: PCP Podiatrist Foot & Ankle Surgery; Visit Provider Physician Assistant | DX: E11.40 Type 2 diabetes mellitus with diabetic neuropathy, unspecified (principal); E11.65 Type 2 diabetes mellitus with hyperglycemia; L60.3 Nail dystrophy; E11.51 Type 2 diabetes mellitus with diabetic peripheral angiopathy without gangrene | CPT/HCPCS: 11721 ==

== ENCOUNTER 2025-03-14 13:24 | Outpatient (OUT) | payer MEDICARE, SELFPAY ==
--- OUTSIDE RECORDS SUMMARY | 2025-02-19 14:53 | XMS_ITS ---
Author Organization OHIP Care Team Providers Care Superintendent Pressure Name Role Phone JESSI GONZALEZ Attending Unavailab le GONZALEZ, JESSI Richards Attending Unavailab le GONZALEZ, JESSI Richards Attending Unavailab le GONZALEZ, JESSI Richards Attending Unavailab le GONZALEZ, JESSI Richards Referring Unavailab le GONZALEZ, JESSI Richards Referring Unavailab le FELTERHERIBERTO Attending Unavailable GONZALEZ, JESSI Richards Primary Care Unavailab le Purpose PROBLEMS DATE TYPE CONDITION / CODE ATTENDING STATUS [facility] 02/19/2025 Unknown Encounter for sc reening, unspecified / Z13.9(ICD-10) NA [facility] 02/19/2025 Unknown Hypotension / FREETEXT(AOF) NA [facility] 02/19/2025 Unknown Low Blood Pressu re / UNK(Unknown) NA [facility] PROCEDURES No Procedure Records Found VITAL SIGNS No Vital Signs Records Found RESULTS XR KNEE 4+ VIEWS LEFT Observed: 08/13/20 24 2:16 PM Status: F Source: [facility] EPIC Exam: XR - LT KNEE COMPLETE MIN [...] Electronically Signed Philip John M.D. 2024-08-14 10:44:41 XR KNEE 4+ VIEWS RIGHT Observed: 024 2:16 PM Status: F Source: [facility] Exam: XR - RT KNEE COMPLETE MIN [...] Electronically Signed Philip John M.D. 2024-08-14 10:45:14 ALLERGIES DATE TYPE / CODE NAME / CODE REACTION SEVERITY SOURCE Drug Class/[id number](SNO MED CT) NO KNOWN ALLERGIES [facility] ENCOUNTERS ADMIT/DISCHARGE ACCOUNT NUMBER ADMITTING ENCOUNTER CLASS LOCATION SOURCE 02/19/2025/02/20/20 [id number] Emergency Building:[facility] _EDRoom: 6Bed: 06 [facility] 02/19/2025/02/20/20 [id number] Ambulatory Building:[facility] 11/13/2024/11/13/19 25 [id number] Ambulatory Building:[facility] 08/21/2024/08/21/20 24 [id number] Ambulatory Building:[facility] 08/13/2024/08/13/20 24 [id number] Ambulatory Building:[facility] 08/13/2024/08/13/20 24 [id number] Ambulatory Building:[facility] 08/13/2024/08/13/20 24 [id number] Ambulatory Building:[facility] EPIC 05/09/2024/05/09/20 24 [id number] Ambulatory Building:[facility] FUNCTIONAL STATUS No Functional Status Records Found EQUIPMENT No Equipment Records Found PAYERS ENCOUNTER GUARANTOR PAYER SUBSCRIBER SOURCE 02/19/2025 JONNIE José Luis WESCHRISTIANOEMELY: [place] [address]Pcb: (HP) Primary Insurance:MEDICARE PART A & BPolicy Number: [id number] ve Date:2022-08-24 JONNIE CANTORB: [id number] [place] [address]Jay: (HP) [facility] 02/19/2025 JONNIE CANTORB: [place] [address]Cmh: (HP) Primary Insurance:MEDICARE Policy Number: [id number] Date:4654-74-21Iup n Name:Medicare JONNIE CANTORB: [id number] [place] [address] [facility] EPIC 11/13/2024 JONNIE CANTORB: [place] [address]Dnc: (HP) Primary Insurance:MEDICARE Policy Number: [id number] ve Date:6751-04-89Xux n Name:Medicare JONNIE CANTORB: [id number] [place] [address] [facility] 08/21/2024 JONNIE CANTORB: [place] [address]Khm: (HP) Primary Insurance:MEDICARE Policy Number: [id number] Date:8938-07-83Etz n Name:Medicare JONNIE CANTORB: [id number] [place] [address] [facility] EPIC 08/13/2024 JONNIE SELLERSDOB: [place] [address]Jxw: (HP) Primary Insurance:MEDICARE Policy Number: [id number] ve Date:2404-62-63Jll n Name:Medicare JONNIE SELLERSDOB: [id number] [place] [address] [facility] EPIC 08/13/2024 JONNIE SELLERSDOB: [place] [address]Zhe: (HP) Primary Insurance:MEDICARE Policy Number: [id number] Date:5411-49-91Sgk n Name:Medicare JONINE SELLERSDOB: [id number] [place] [address] [facility] EPIC 08/13/2024 JONNIE SELLERSDOB: [place] [address]Fac: (HP) Primary Insurance:MEDICARE Policy Number: [id number] Date:7408-40-30Sqg n Name:Medicare JONNIE SELLERSDOB: [id number] [place] [address] [facility] EPIC 05/09/2024 JONNIE SELLERSDOB: [place] [address]Nta: (HP) Primary Insurance:MEDICARE Policy Number: [id number] ve Date:9573-87-01Cbz n Name:Medicare JONNIE SELLERSDOB: [id number] [place] [address] [facility] EPIC 05/09/2024 Secondary Insurance[place]: [id number] laxmi Date:2022-08-242024-04-23 JONNIE CANTORB: [id number] [place] [address] [facility] EPIC SOCIAL HISTORY No Social History Records Found FAMILY HISTORY No Family History Records Found No Status Records Found ADVANCE DIRECTIVES No Advanced Directives Records Found INFORMATION SOURCE DATE CREATED AUTHOR AUTHOR'S ORGANIZ ATION 03/14/2025 [place]
--- NOTE | 2025-03-14 13:44 | PM.WCHP ---
Wound Care H&P: HPI History of Present Illness Narrative: The patient is a pleasant 69-year-old gentleman with history of type 2 diabetes, last A1c 9.1, who presents for routine nail care. The patient has no complaints of pain in his feet and has no wounds at this time. Exam Narrative: Exam Narrative: Derm: Toenails 1 through 10 are thickened, elongated, and painful.? No evidence of paronychia.? Skin is diffusely dry, thin, and atrophic. Hemosiderin staining present on the lower legs bilaterally. Vascular: DP and PT pulses are nonpalpable on the right.? DP pulse is 1/4 on the left and PT pulse is nonpalpable on the left. Capillary refill is less than 3 seconds to all toes. Digital hair is absent bilaterally. Neuro: Vibratory sensation is absent bilaterally.? Achilles deep tendon reflex is 1+ bilaterally.? Protective sensation was tested with a monofilament and is present in 1/5 areas tested on the right and 0/5 areas tested on the left.? Musculoskeletal: No gross deformity. Strength 5/5 in all planes bilaterally Assessment and Plan Assessment and Plan (1) Tinea unguium: (2) Diminished pulses in lower extremity: (3) Type 2 diabetes mellitus with diabetic neuropathy, unspecified: Plan Routine nail care performed. Follow-up in 3 months. Acute Procedures Podiatry Nail Debridement Class B Findings Absent posterior tibial pulse: right Advanced trophic changes as evidenced by any three of the following: decreased hair growth, nail changes (thickening), pigmentary changes (discoloring) and skin texture (thin or shiny) Absent dorsalis pedis pulse: right Class C Findings Claudication: No Temperature changes: No Edema: Yes Nail debridement paresthesia (abnormal spontaneous sensations in the feet): No Burning: No Qualifies If: Qualifiers If:: A patient qualifies for nail debridement if they have: 1 class A finding (Q7) 2 class B findings (Q8) OR 1 class B & 2 class C findings in addition to a primary condition (Q9) Nail Procedure Nail Procedure Time out: Yes Nail procedure: other (Toenail debridement) Number of affected nails: 10 Location (toes): left and right Procedure successful: Yes Patient tolerated procedure: well and no complications Additional comments: Sharp debridement of toenails 1 through 10 with nail nippers. Procedure performed without incident and to the patient's satisfaction.
== END 2025-03-14 13:25 | disposition home or self-care (01) ==
LOC: WC 13:24
PROVIDERS: PCP Podiatrist Foot & Ankle Surgery; Visit Provider Physician Assistant
DX: B35.1 Tinea unguium (principal); I70.211 Atherosclerosis of native arteries of extremities with intermittent claudication, right leg; E11.40 Type 2 diabetes mellitus with diabetic neuropathy, unspecified; L60.8 Other nail disorders
CPT/HCPCS: 11721

== ENCOUNTER 2025-06-13 13:10 | Outpatient (OUT) | payer MEDICARE, SELFPAY ==
--- OUTSIDE RECORDS SUMMARY | 2025-06-13 13:16 | XMS_ITS | Clinical Summary ---
Author Organization [facility] tem Address [id number] [address] [place] [address] Care Team Providers Care Circular Knitter Helper Name Role Phone Rosalva Mane Primary Care Pro vider Allergies No known active allergies Medications metFORMIN (GLUCOPHAGE) 850 mg tablet Take 1 tablet (850 mg total) by mouth in the morning and 1 tablet (850 mg total) in the evening. Take with meals. Active glimepiride (AMARYL) 4 mg tablet Take 1 tablet (4 mg total) by mouth in the morning and at bedtime. Active gabapentin (NEURONTIN) 600 mg tablet Take 1 tablet (600 mg total) by mouth in the morning and 1 tablet (600 mg total) before bedtime. Active lisinopril-hydr oCHLOROthiazide (PRINZIDE,ZESTO RETIC) 20-12.5 mg per tablet Take 1 tablet by mouth in the morning. Active atorvastatin (LIPITOR) 20 mg tablet Take 1 tablet (20 mg total) by mouth in the morning. Active furosemide (LASIX) 20 mg tablet Take 1 tablet (20 mg total) by mouth daily. Active aspirin 81 mg Take 1 tablet (81 mg total) by mouth in the morning. Active dulaglutide (TRULICITY) 0.75 mg/0.5 mL pen injector Inject under the skin. Active Active Problems Problem Noted Date Diagnosed Date Essential hypertension 12/09/2023 Family History Medical History Relation Name Comments Heart disease Father Stroke Father No Known Problems Mother Relation Name Status Comments Father Mother Social History Tobacco Use Types Packs/Day Years Used Date Smoking Tobacco: Never Smokeless Tobacco: Never Alcohol Use Standard Drinks/Week Comments Yes 2 (1 standard drink = 0.6 oz pur e alcohol) Childcare Answer Date Recorded Childcare Unknown 04/04/2019 Employment Answer Date Recorded Employment Unknown 04/04/2019 Hunger Screening Answer Date Recorded Within the past 12 months we worried whether our food would run out before we got money to buy more. Never True 02/19/2025 Within the past 12 months th e food we bought just didn't last and we didn't have money to get more. Never True 02/19/2025 Purpose - Life Answer Date Recorded Purpose and direction in life Unknown Sex and Gender Information Value Date Recorded Sex Assigned at Not on file Legal Sex Male 12:01 PM EDT Gender Identity Not on file Sexual Orientation Not on file Last Filed Vital Signs Vital Sign Reading Time Taken Comments Blood Pressure 133/67 02/19/2025 4:00 PM EDT Pulse 89 02/19/2025 2:53 PM EDT Temperature 36.7 C (98.1 F) 02/19/2025 2:53 PM EDT Respiratory Rate 18 02/19/2025 2:53 PM EDT Oxygen Saturation 90% 02/19/2025 4:00 PM EDT Inhaled Oxygen Concentration - - Weight 121.6 kg (268 lb) 02/19/2025 2:53 PM EDT Height 190.5 cm (6' 3 ) 02/19/2025 2:53 PM EDT Body Mass Index 33.5 02/19/2025 2:53 PM EDT Plan of Treatment Health Maintenance Due Date Last Done Comments Depression Screening 1969 Adult BMI Follow Up Plan 1975 DTaP,Tdap and Td Vaccines (1 - Tdap) 1976 Zoster (Shingles) Vaccine (1 of 2) 2007 Fall Risk Screening 2022 COVID-19 Vaccine (2023-2 5 season) 2024 11/02/2021, 03/26/2021, 02/26/2021 Tobacco Screening 12/09/2024 12/09/2023 Influenza Vaccine 06/24/2025 07/21/2011, , 07/30/2009, Additional history exists Adult BMI Screening 02/19/2026 02/19/2025 Medical Devices Not on file Insurance MEDICARE Care Teams Circular Knitter Helper Relationship Specialty Start Date End Date Rosalva Mane APRN-SENIOR CUSTOMER SERVICE REPRESENTATIVE [address] [place] [address] PCP - General Internal Medicine 02/19/25
--- OUTSIDE RECORDS SUMMARY | 2025-06-13 13:16 | XMS_ITS | Encounter Summary ---
Author Organization [facility] Healthcare Address [address] [place] [address] Care Team Providers Care Roll Inspector Name Role Phone Greta Maharaj DO Primary Care Provider [phone] Hellen Lora BRAND MARKETING SPECIALIST-FURNACE RELINER Unavailable Greta Maharaj DO Unavailable [phone] Cindy Reyes MD Primary Care Provider [phone] Rosalva Mane TRANSPORT ANALYST Unavailable [phone] Greta Maharaj DO Unavailable [phone] Encounter Details Date Type Department Care Team (Late st Contact Info) Description 08/17/2023 Abstract [facility] Family Medicine [address] [facility] [address] Greta Maharaj DO [address] [facility] [address] [place] [address] Social History Tobacco Use Types Packs/Day Years Used Date Smoking Tobacco: Never Smokeless Tobacco: Never Alcohol Use Standard Drinks/Week Comments Yes 4 (1 standard drink = 0.6 oz pur e alcohol) caffeine: none Humiliation, Afraid, Rape, and Kick questionnair e Answer Date Recorded Within the last year, have y ou been afraid of your partner or ex-partner? No 03/29/2023 Within the last year, have y ou been humiliated or emotionally abused in other ways by your partner or ex-partner? No Within the last year, have y ou been kicked, hit, slapped, or otherwise physically hurt by your partner or ex-partner? No 03/29/2023 Within the last year, have y ou been raped or forced to have any kind of sexual activity by your partner or ex-partner? No 03/29/2023 Social Connection and Isolat ion Panel [NHANES] Answer Date Recorded In a typical week, how many times do you talk on the phone with family, friends, or neighbors? More than three times a week 03/29/2023 How often do you get togethe r with friends or relatives? More than three times a week 03/29/2023 How often do you attend chur or latter day services? Never 03/29/2023 Do you belong to any clubs o r organizations such as samaritan groups, unions, fraternal or athletic groups, or school groups? No 03/29/2023 How often do you attend meet ings of the clubs or organizations you belong to? Never 03/29/2023 Are you , , di vorced, , never , or living with a partner? Never 03/29/2023 AUDIT-C Answer Date Recorded Q1: How often do you have a drink containing alc ohol? Monthly or less 03/29/2023 Q2: How many drinks containi ng alcohol do you have on a typical day when you are drinking? 1 or 2 03/29/2023 Q3: How often do you have si x or more drinks on one occasion? Never 03/29/2023 Overall Financial Resource Strain (CARDIA) Answe r Date Recorded How hard is it for you to pa y for the very basics like food, housing, medical care, and heating? Not hard at all 03/29/2023 PHQ-2 Answer Date Recorded Patient Health Questionnaire-2 Score 0 03/29/2023 [facility] [place] of Occupat ional Health - Occupational Stress Questionnaire Answer Date Recorded Do you feel stress - tense, restless, nervous, or anxious, or unable to sleep at night because your mind is troubled all the time - these days? Not at all 03/29/2023 Exercise Vital Sign Answer Date Recorde d On average, how many days pe r week do you engage in moderate to strenuous exercise (like a brisk walk)? 5 days 03/29/2023 On average, how many minutes do you engage in exercise at this level? 60 min 03/29/2023 Hunger Vital Sign Answer Date Recorded Within the past 12 months, y ou worried that your food would run out before you got the money to buy more. Never true 03/29/20 23 Within the past 12 months, t he food you bought just didn't last and you didn't have money to get more. Never true 03/29/2023 PRAPARE - Transportation Answer Date Re corded In the past 12 months, has l ack of transportation kept you from medical appointments or from getting medications? No 03/2023 In the past 12 months, has l ack of transportation kept you from meetings, work, or from getting things needed for daily living? No 03/29/2023 Housing Stability Vital Sign Answer Giles e Recorded In the last 12 months, was t here a time when you were not able to pay the mortgage or rent on time? No 03/29/2023 In the last 12 months, how many places have you lived? 1 03/29/2023 In the last 12 months, was t here a time when you did not have a steady place to sleep or slept in a group home (including now)? No 03/29/2023 Sex and Gender Information Value Date Recorded Sex Assigned at Not on file Legal Sex Male 7:59 PM EDT Gender Identity Male 01/05/2023 7:59 PM EDT Sexual Orientation Not on file documented as of this encounter Plan of Treatment Upcoming Encounters Date Type Department Care Team (Late st Contact Info) Description 06/25/2025 2:00 PM EDT Office Visit [facility] [address] [place] [phone] Rosalva Mane NP [address] [place] [place], [place] [phone] 08/22/2025 1:05 PM EDT Office Visit [facility] [address] [place] [address] Hellen Lora, BRAND MARKETING SPECIALIST-FURNACE RELINER [address] [place] [address] documented as of this encounter Visit Diagnoses Not on filedocumented in this encounter Care Teams Roll Inspector Relationship Specialty Start Date End Date Greta Maharaj DO PCP - General Family Medicine 03/29/23 07/26/24 Hellen Lora, BRAND MARKETING SPECIALIST-FURNACE RELINER [address] [place] [address] PCP - FFS [facility] 01/22/23 01/22/24 Greta Maharaj DO [address] [facility] [address] [place] [address] PCP - ACO Reach 12/23/23 11/29/24 Cindy Reyes MD [address] [place], [place] [phone] PCP - General Family Medicine 07/27/24 Greta Maharaj DO [address] [facility] [address] [facility] [place] [address] PCP - ACO Reach 12/07/24 01/24/25 Rosalva Mane NP [address] [place], [place] [phone] Nurse Practitioner Family Medicine 07/27/24 documented as of this encounter
--- OUTSIDE RECORDS SUMMARY | 2025-06-13 13:16 | XMS_ITS | Encounter Summary ---
Author Organization [id number] [address] [place] [address] Care Team Providers Care Ice Cream Freezer Name Role Phone Rosalva Mane Maurice ROTHMAN-GOVERNOR ASSEMBLER HYDRAULIC Primary Care Pro vider Encounter Details Date Type Department Care Team (Late st Contact Info) Description 12/08/2023 Orders Only [facility] [address] [place] [phone] External, Scanning Provider Social History Tobacco Use Types Packs/Day Years Used Date Smoking Tobacco: Never Smokeless Tobacco: Never Childcare Answer Date Recorded Childcare Unknown 04/04/2019 Employment Answer Date Recorded Employment Unknown 04/04/2019 Hunger Screening Answer Date Recorded Within the past 12 months we worried whether our food would run out before we got money to buy more. Never True 12/09/2023 Within the past 12 months th e food we bought just didn't last and we didn't have money to get more. Never True 12/09/2023 Purpose - Life Answer Date Recorded Purpose and direction in life Unknown Sex and Gender Information Value Date Recorded Sex Assigned at Not on file Legal Sex Male 12:01 PM EDT Gender Identity Not on file Sexual Orientation Not on file documented as of this encounter Plan of Treatment Not on file documented as of this encounter Procedures Procedure Name Priority Date/Time Associated Diagnosis Comments ECG 12-LEAD Routine 12/08/2023 1:36 PM EST documented in this encounter Results * ECG 12 lead (12/08/2023 1:36 PM EST) us Scanning Provider External ECG ORDERABLES Final Result MANUALLY TRANSCRIBED RESULTS documented in this encounter Visit Diagnoses Not on filedocumented in this encounter Care Teams Ice Cream Freezer Relationship Specialty Start Date End Date Rosalva Mane APRN-ADWOA [address] [place] [address] PCP - General Internal Medicine 02/19/25 documented as of this encounter
--- OUTSIDE RECORDS SUMMARY | 2025-06-13 13:16 | XMS_ITS | Encounter Summary ---
Author Organization [facility] Healthcare Address [address] [place] [address] Care Team Providers Care Acute Care Registered Nurse Name Role Phone Greta Maharaj DO Primary Care Provider [phone] Hellen Lora DIGITAL MARKETING APPRENTICE-CARDIOLOGY TEACHER Unavailable Greta Maharaj DO Unavailable [phone] Cindy Reyes MD Primary Care Provider Rosalva Mane SQUIRREL MAN Unavailable [phone] Greta Maharaj DO Unavailable [phone] Encounter Details Date Type Department Care Team (Late st Contact Info) Description 03/28/2023 Abstract [facility] Family Medicine [address] [facility] [place] [address] Greta Maharaj, DO [address] [facility] [address] [place] [address] Social History Tobacco Use Types Packs/Day Years Used Date Smoking Tobacco: Never Smokeless Tobacco: Never Tobacco Cessation:Counseling Given: Not Answered Alcohol Use Standard Drinks/Week Comments Not Currently 7 (1 standard drink = 0.6 oz pur e alcohol) Humiliation, Afraid, Rape, and Kick questionnair e [...] How often do you attend chur or druze services? Never 03/29/2023 Do you belong to any clubs o r organizations such as anabaptist groups, unions, fraternal or athletic groups, or [...] Patient Health Questionnaire-2 Score 0 03/29/2023 [facility] [place] of Occupat ional Health - Occupational Stress [...] place to sleep or slept in a [place] health care facility (including now)? No 03/29/2023 Sex and Gender Information Value Date Recorded Sex Assigned at Not on file Legal Sex Male 7:59 PM EDT Gender Identity Male 01/05/2023 7:59 PM EDT Sexual Orientation Not on file COVID-19 Exposure Response Date Recorded In the last 10 days, have yo u been in contact with someone who was confirmed or suspected to have Coronavirus/COVID-19? No / Unsure 03/29/2023 1:03 PM EDT documented as of this encounter Functional Status * Audit-C Score Answer Date of Assessment Author 1 03/29/2023 1:03 PM EDT Graeme, Susan * Q1: How often do you have a drink containing alcohol? Answer Date of Assessment Author Monthly or less 03/29/2023 1:03 PM EDT Graeme, Generic * Q2: How many drinks containing alcohol do you have on a typical day when you are drinking? Answer Date of Assessment Author 1 or 2 03/29/2023 1:03 PM EDT Mychart, Generic * Q3: How often do you have six or more drinks on one occasion? Answer Date of Assessment Author Never 03/29/2023 1:03 PM EDT Mychart, Generic * Over the past 2 weeks, how often have you been bothered by any of the following problems? Question Answer Date of Assessment Author Little interest or pleasure in doing things Not at all 03/29/2023 1:00 PM EDT Gisselle Hawkins MA Feeling down, depressed, or hopeless Not at all 03/29/2023 1:00 PM EDT Gisselle Hawkins MA Patient Health Questionnaire-2 Score 0 03/29/2023 1:00 PM EDT Claudia Hawkins MA documented as of this encounter Plan of Treatment Upcoming Encounters Date Type Department Care Team (Late st Contact Info) Description 06/25/2025 2:00 PM EDT Office Visit [facility] [address] [place] [address] Rosalva Mane NP [address] [place] [address] 08/22/2025 1:05 PM EDT Office Visit [facility] [address] [place] [phone] Hellen Lora, DIGITAL MARKETING APPRENTICE-CARDIOLOGY TEACHER [address] [place] [address] documented as of this encounter Visit Diagnoses Not on filedocumented in this encounter Care Teams Acute Care Registered Nurse Relationship Specialty Start Date End Date Greta Maharaj DO PCP - General Family Medicine 03/29/23 07/26/24 Hellen Lora, DIGITAL MARKETING APPRENTICE-CARDIOLOGY TEACHER [address] [place] [address] PCP - [facility] 01/22/23 01/22/24 Greta Maharaj DO [address] [facility] [address] [place] [phone] PCP - ACO Reach 12/23/23 11/29/24 Cindy Reyes MD [address] [facility] [place] [address] PCP - General Family Medicine 07/27/24 Greta Maharaj DO [address] [facility] [address] [place] [phone] PCP - ACO Reach 12/07/24 01/24/25 Rosalva Mane NP [address] [facility] [address] [place] [phone] Nurse Practitioner Family Medicine 07/27/24 documented as of this encounter
--- OUTSIDE RECORDS SUMMARY | 2025-06-13 13:16 | XMS_ITS | Encounter Summary ---
Author Organization [facility] Healthcare Address [address] [place] [address] Care Team Providers Care Cooling Tower Operator Name Role Phone Greta Maharaj DO Primary Care Provider [phone] Hellen Lora AIR BAG CURER-WASH OIL COOLER OPERATOR Unavailable Greta Maharaj DO Unavailable [phone] Cindy Reyes MD Primary Care Provider [phone] Rosalva Mane SHEET METAL ERECTOR Unavailable [phone] Greta Maharaj DO Unavailable [phone] Encounter Details Date Type Department Care Team (Late st Contact Info) Description 07/22/2023 Abstract [facility] Family Medicine [address] [place] [address] [facility] [place] [address] Greta Maharaj, DO [address] [facility] [address] [place] [address] Social History Tobacco Use Types [...] How often do you attend chur or sabianism services? Never 03/29/2023 Do you belong to any clubs o r organizations such as worship groups, unions, fraternal or athletic groups, or [...] Recorded Patient Health Questionnaire-2 Score 0 03/29/2023 [facility] [place] of Occupat ional Health - Occupational Stress [...] place to sleep or slept in a care home (including now)? No 03/29/2023 Sex and [...] EDT Office Visit [facility] [address] [place] [phone] Rosalva Mane NP [address] [place], [place] [phone] 08/22/2025 1:05 PM EDT Office Visit [facility] [address] [place] [address] Hellen Lora, AIR BAG CURER-WASH OIL COOLER OPERATOR [address] [place] [address] documented as of this encounter Visit Diagnoses Not on filedocumented in this encounter Care Teams Cooling Tower Operator Relationship Specialty Start Date End Date Greta Maharaj DO PCP - General Family Medicine 03/29/23 07/26/24 Hellen Lora, AIR BAG CURER-WASH OIL COOLER OPERATOR [address] [place] [address] PCP - FFS [facility] 01/22/23 01/22/24 Greta Maharaj DO [address] [facility] [address] [place] [address] PCP - ACO Reach 12/23/23 11/29/24 Cindy Reyes MD [address] [place], [place] [phone] PCP - General Family Medicine 07/27/24 Greta Maharaj DO [address] [facility] [address] [facility] [place] [address] PCP - ACO Reach 12/07/24 01/24/25 Rosalva Mane NP [address] [place], [place] [phone] Nurse Practitioner Family Medicine 07/27/24 documented as of this encounter
--- OUTSIDE RECORDS SUMMARY | 2025-06-13 13:16 | XMS_ITS | Encounter Summary ---
Author Organization [facility] Healthcare Address [address] [place] [address] Care Team Providers Care Complaint Coordinator Name Role Phone Greta Maharaj DO Primary Care Provider [phone] Hellen Lora PATTERN ROOM ATTENDANT-FELT COVERER Unavailable Greta Maharaj DO Unavailable [phone] Cindy Reyes MD Primary Care Provider [phone] Rosalva Mane NANOSYSTEMS ENGINEER Unavailable [phone] Greta Maharaj DO Unavailable [phone] Encounter Details Date Type Department Care Team (Late st Contact Info) Description 08/04/2023 Abstract [facility] Family Medicine [address] [place] [address] Greta Maharaj, DO [address] [facility] [address] [place] [address] Social History Tobacco Use Types [...] How often do you attend chur or muslim services? Never 03/29/2023 Do you belong to any clubs o r organizations such as gnosticist groups, unions, fraternal or athletic groups, or [...] Recorded Patient Health Questionnaire-2 Score 0 03/29/2023 [facility] [place] of Occupat ional Health - Occupational Stress [...] place to sleep or slept in a assisted (including now)? No 03/29/2023 Sex and Gender [...] EDT Office Visit [facility] [address] [place] [phone] Rosalva Mane NP [address] [place], [place] [phone] 08/22/2025 1:05 PM EDT Office Visit [facility] [address] [place] [address] Hellen Lora, PATTERN ROOM ATTENDANT-FELT COVERER [address] [place] [address] documented as of this encounter Visit Diagnoses Not on filedocumented in this encounter Care Teams Complaint Coordinator Relationship Specialty Start Date End Date Greta Maharaj DO PCP - General Family Medicine 03/29/23 07/26/24 Hellen Lora, PATTERN ROOM ATTENDANT-FELT COVERER [address] [place] [address] PCP - FFS [facility] 01/22/23 01/22/24 Greta Maharaj DO [address] [facility] [address] [place] [address] PCP - ACO Reach 12/23/23 11/29/24 Cindy Reyes MD [address] [place], [place] [phone] PCP - General Family Medicine 07/27/24 Greta Maharaj DO [address] [facility] [address] [facility] [place] [address] PCP - ACO Reach 12/07/24 01/24/25 Rosalva Mane NP [address] [place], [place] [phone] Nurse Practitioner Family Medicine 07/27/24 documented as of this encounter
--- OUTSIDE RECORDS SUMMARY | 2025-06-13 13:16 | XMS_ITS | Clinical Summary ---
Author Organization [facility] Healthcare Address [address] [place] [address] Care Team Providers Care Operations Tech Name Role Phone Cindy Reyes MD Primary Care Provider [phone] Rosalva Mane MOTION STUDY TECHNICIAN Unavailable [phone] Allergies No known active allergies Medications aspirin (ASPIR) 81 MG EC tablet Take 81 mg by mouth in the morning. Active triamcinolone (Kenalog) 0.1 % creamIndications:O ther atopic dermatitis Apply topically 2 (two) times a day as needed for rash (use when flared, hold when clear). apply to trunk, arms, legs 454 g 05/09/20 23 Active fluocinonide (Lidex) 0.05 % ointmentIndication s:Psoriasis vulgaris Apply to affected areas bid prn 60 g 11 08/11/20 23 Active Additional Information Patient not taking.Reported on 05/27/2025 ammonium lactate (Lac-Hydrin) 12 % lotion 02/01/20 24 Active gabapentin (Neurontin) 600 MG tabletIndications: Polyneuropathy associated with underlying disease (HCC) Take 1 tablet (600 mg) by mouth in the morning and 1 tablet (600 mg) before bedtime. 180 tablet 3 05/09/20 24 Active furosemide (Lasix) 20 MG tabletIndications: Venous stasis dermatitis of both lower extremities TAKE ONE TABLET BY MOUTH EVERY MORNING 90 tablet 3 07/28/20 24 Active glimepiride (Amaryl) 4 MG tabletIndications: Type 2 diabetes mellitus with diabetic neuropathy, without long-term current use of insulin (HCC) TAKE 1 TABLET BY MOUTH EVERY MORNING AND BEFORE BEDTIME 180 tablet 2 08/14/20 24 Active Tapinarof (Vtama) 1 % creamIndications:P soriasis vulgaris Apply 2 g topically Daily 60 g 11 08/21/20 24 Active glucose blood (True Metrix Blood Glucose Test) test stripIndications:T ype 2 diabetes mellitus with hyperglycemia, without long-term current use of insulin (HCC) 1 each by Other route in the morning. Take before meals. 100 each 3 10/29/19 25 Active Easy Touch Lancets 33G/Twist miscIndications:Ty pe 2 diabetes mellitus with hyperglycemia, without long-term current use of insulin ([facility]) Inject 1 each under the skin Daily 100 each 10/29/19 25 Active lisinopril-hydroCH LOROthiazide 20-12.5 MG tabletIndications: Primary hypertension Take 1 tablet by mouth Daily 100 tablet 3 11/13/19 25 026 Active Dulaglutide (Trulicity) 0.75 MG/0.5ML solution auto-injectorIndic ations:Type 2 diabetes mellitus with diabetic neuropathy, without long-term current use of insulin ([facility]) Inject 0.75 mg under the skin 1 (one) time per week 0.5 mL 1 11/21/19 25 Active Additional Information Patient not taking.Reported on 05/27/2025 metFORMIN (Glucophage) 850 MG tabletIndications: Type 2 diabetes mellitus with diabetic neuropathy, without long-term current use of insulin ([facility]) Take 1 tablet (850 mg) by mouth in the morning and 1 tablet (850 mg) in the evening. Take with meals. 180 tablet 3 04/24/20 25 Active atorvastatin (Lipitor) 20 MG tabletIndications: Mixed hyperlipidemia Take 1 tablet (20 mg) by mouth Daily 90 tablet 1 04/24/20 25 Active Active Problems Problem Noted Date Diagnosed Date Atopic dermatitis 02/28/2023 Bilateral artificial lens implant 02/28/2023 Degeneration of iris (pigmentary), bilateral 05/2023 Primary hypertension 02/28/2023 Lumbar degenerative disc disease 02/28/2023 Mixed hyperlipidemia 02/28/2023 Morbid obesity due to excess calories 02/28/2023 Other chronic pain 02/28/2023 PAD (peripheral artery disease) 02/28/2023 Polyneuropathy associated with underlying diseas e 02/28/2023 Primary osteoarthritis of knees, bilateral 02/28 Psoriasis 02/28/2023 Spinal stenosis of lumbar re gion with neurogenic claudication 02/28/2023 Type 2 diabetes mellitus wit h diabetic neuropathy, without long-term current use of insulin 02/28/2023 Venous stasis dermatitis of both lower extremiti es 02/28/2023 Resolved Problems Problem Noted Date Diagnosed Date Resolved Date Ulcer of right lower extremi ty, limited to breakdown of skin 02/28/2023 05/27/2025 Encounters Date Type Department Care Team Description 06/03/2025 Results Follow-Up [id number] [place] [phone] Rosalva Mane NP CBC and differential, PSA, Lipid panel, Additional followed-up results: 2 05/27/2025 1:00 PM EDT Office Visit [address] [phone] Rosavla Mane NP Encounter for annual wellness exam in Medicare patient (Primary Dx); Screening for deficiency anemia; Screening for prostate cancer; Bilateral artificial lens implant; Primary hypertension ; Mixed hyperlipidemia ; Morbid obesity due to excess calories ([facility]); Other chronic pain; PAD (peripheral artery disease); Polyneuropathy associated with underlying disease ([facility]); Type 2 diabetes mellitus with diabetic neuropathy, without long-term current use of insulin ([facility]); Spinal stenosis of lumbar region with neurogenic claudication; Venous stasis dermatitis of both lower extremities; Psoriasis ; Degeneration of intervertebral disc of lumbar region, unspecified whether pain present; Primary osteoarthritis of knees, bilateral; Atopic dermatitis, unspecified type; Degeneration of iris (pigmentary), bilateral; Screening for colon cancer 05/27/2025 Bamboo flowsheet [id number] [place] [address] Rosalva Mane NP 05/27/2025 Travel 05/07/[address] [phone] Kari Lawrence MA Open Orders 04/24/[address] [phone] Cindy Reyes MD Type 2 diabetes mellitus with diabetic neuropathy, without long-term current use of insulin (HCC); Mixed hyperlipidemia from Last 3 Months Immunizations Immunization Administration Dates Next Due Influenza Whole 07/21/2011,08/05/2010,07/30/2009 ,08/09/2007 Family History Medical History Relation Name Comments Atrial fibrillation Father chronic Diabetes Father Glaucoma Father Hypertension Father Stroke Father Arthritis Maternal Grandfather Heart attack Maternal Grandfather Heart disease Maternal Grandfather Tuberculosis Maternal Grandmother Dementia Mother Hyperlipidemia Mother Osteoporosis Mother spinal/brain tumor Niece Heart disease Paternal Grandfather Heart failure Paternal Grandfather Heart disease Paternal Grandmother Heart failure Paternal Grandmother Relation Name Status Comments Father Maternal Grandfather Maternal Grandmother Mother Niece Paternal Grandfather Paternal Grandmother Sister Alive Social History Tobacco Use Types Packs/Day Years Used Date Smoking Tobacco: Never Smokeless Tobacco: Never Tobacco Cessation:Counseling Given: Not Answered Alcohol Use Standard Drinks/Week Comments Yes 2 (1 standard drink = 0.6 oz pur e alcohol) caffeine: 4 pops daily Humiliation, Afraid, Rape, and Kick questionnair e [...] week 03/29/2023 How often do you attend [facility] or m[facility]on services? Never 03/29/2023 Do you belong to any clubs o r organizations such as temple groups, unions, fraternal or athletic groups, or [...] Date Recorded Patient Health Questionnaire-2 Score 0 05/27/2025 [facility] - Occupational Stress [...] place to sleep or slept in a correction (including now)? No 03/29/2023 Sex and Gender Information Value Date Recorded Sex Assigned at Not on file Legal Sex Male 7:59 PM EDT Gender Identity Male 01/05/2023 7:59 PM EDT Sexual Orientation Not on file Last Filed Vital Signs Vital Sign Reading Time Taken Comments Blood Pressure 126/70 05/27/2025 12:51 PM EDT Pulse 78 05/27/2025 12:51 PM EDT Temperature 36.4 C (97.5 F) 02/19/2025 1:44 PM EDT Respiratory Rate 18 05/27/2025 12:51 PM EDT Oxygen Saturation 98% 05/27/2025 12:51 PM EDT Inhaled Oxygen Concentration - - Weight 114 kg (252 lb) 05/27/2025 12:51 PM EDT Height 190.5 cm (6' 3 ) 05/27/2025 12:51 PM EDT Body Mass Index 31.5 05/27/2025 12:51 PM EDT Plan of Treatment Upcoming Encounters Date Type Department Care Team (Late st Contact Info) Description 06/25/2025 2:00 PM EDT Office Visit [facility] [address] [place] [phone] Rosalva Mane NP [address] [place] [address] 08/22/2025 1:05 PM EDT Office Visit [facility] [address] [place] [address] Hellen Lora APRN-MOLD FILLER AND DRAINER [address] [place] [address] Health Maintenance Due Date Last Done Comments CT Colonography 1957 Colonoscopy 1957 FIT 1957 FOBT 1957 Sigmoidoscopy 1957 Pneumococcal Vaccine: 65+ Ye ars (1 of 2 - PCV) 1976 Diabetes: Retinopathy Screening 07/24/2021 9 Diabetes: Urine Protein Screening 02/06/2025 024 Colorectal Cancer Screening 06/24/2025 FIT-DNA 06/24/2025 07/05/2022, 09/0 03/2019, 06/29/2019 Influenza Vaccine (#1) 2025 1, 08/05/2010, 07/30/2009, Additional history exists Diabetes: Hemoglobin A1C 08/27/2025 025, 11/13/2024, 05/09/2024, Additional history exists Medicare Annual Wellness (AWV) 05/27/2026 0 05/27/2025, 05/09/2024, 03/29/2023 Procedures Procedure Name Priority Date/Time Associated Diagnosis Comments HEMOGLOBIN A1C Routine 05/27/2025 1:24 PM EDT Type 2 diabetes mellitus with diabetic neuropathy, without long-term current use of insulin (HCC) COMPREHENSIVE METABOLIC PANEL Routine 05/27/2025 1:24 PM EDT Type 2 diabetes mellitus with diabetic neuropathy, without long-term current use of insulin (HCC) LIPID PANEL Routine 05/27/2025 1:24 PM EDT Mixed hyperlipidemia PSA, TOTAL Routine 05/27/2025 1:24 PM EDT Screening for prostate cancer CBC (INCLUDES DIFF/PLT) Routine 05/27/2025 1:24 PM EDT Screening for deficiency anemia MICROALBUMIN / CREATININE URINE RATIO Routine 02/07/2024 2:18 PM EDT Type 2 diabetes mellitus with diabetic neuropathy, without long-term current use of insulin (HCC) COLOR FUNDUS PHOTOGRAPHY - OU - BOTH EYES Routine 07/24/2019 12:00 PM EDT LAB COLOGUARD COLON CANCER SCREEN Routine 06/29/2019 from Last 3 Months or Most Recently Relevant to Health Maintenance Results * (ABNORMAL) CBC and differential (05/27/2025 1:24 PM EDT) WHITE BLOOD CELL COUNT 4.9 3.8 - 10.8 Thousand/u L [facility] RED BLOOD CELL COUNT 4.16(L) 4.20 - 5.80 Million/uL [facility] HEMOGLOBIN 12.9(L) 13.2 - 17.1 g/dL [facility] HEMATOCRIT 38.6 38.5 - 50.0 % [facility] MCV 92.8 80.0 - 100.0 fL [facility] MCH 31.0 27.0 - 33.0 pg [facility] MCHC 33.4 32.0 - 36.0 g/dL [facility] Comment: For adults, a slight decrease in the calculated MCHC value (in the range of 30 to 32 g/dL) is most likely not clinically significant; however, it should be interpreted with caution in correlation with other red cell parameters and the patient's clinical condition. RDW 12.4 11.0 - 15.0 % [facility] PLATELET COUNT 165 140 - 400 Thousand/u L [facility] MPV 10.5 7.5 - 12.5 fL [facility] ABSOLUTE NEUTROPHILS 2,386 1,500 - 7,800 cells/uL [facility] ABSOLUTE LYMPHOCYTES 1,960 850 - 3,900 cells/uL [facility] ABSOLUTE MONOCYTES 372 200 - 950 cells/uL [facility] ABSOLUTE EOSINOPHILS 152 15 - 500 cells/uL [facility] ABSOLUTE BASOPHILS 29 0 - 200 cells/uL [facility] NEUTROPHILS 48.7 % [facility] LYMPHOCYTES 40.0 % [facility] MONOCYTES 7.6 % [facility] EOSINOPHILS 3.1 % [facility] BASOPHILS 0.6 % [facility] Blood Venous blood specimen / Unknown 05/27/2025 1:24 PM EDT 05/27/2025 1:25 PM EDT Narrative [facility] - 05/28/2025 6:54 AM EDT COLLECTION KIT GIVEN TO PATIENT. PATIENT ADVISED TO RETURN. Resulting Agency Comment Performing Organization Information Site ID: QPT Name: [facility] Address: [address] [place] [address], [address] [place] [phone] Director: Josep Amos MD Rosalva Mane MOTION STUDY TECHNICIAN LAB BLOOD ORDERABLES Fi nal Result Performing Organization Address [facility] de Phone Number [facility] * PSA (05/27/2025 1:24 PM EDT) PSA, TOTAL 0.27 < OR = 4.00 ng/mL [facility] Comment: The total PSA value from this assay system is standardized against the WHO standard. The test result will be approximately 20% lower when compared to the equimolar-standardized total PSA ([place] [place]ron[place]). Comparison of serial PSA results should be interpreted with this fact in mind. This test was performed using the Siemens chemiluminescent method. Values obtained from different assay methods cannot be used interchangeably. PSA levels, regardless of value, should not be interpreted as absolute evidence of the presence or absence of disease. Blood Venous blood specimen / Unknown 05/27/2025 1:24 PM EDT 05/27/2025 1:25 PM EDT Narrative [facility] - 05/28/2025 6:54 AM EDT COLLECTION KIT GIVEN TO PATIENT. PATIENT ADVISED TO RETURN. Resulting Agency Comment Performing Organization Information Site ID: QPT Name: [facility] Address: [address] [place] [address], [address] [place] [phone] Director: Josep Amos MD Rosalva Mane MOTION STUDY TECHNICIAN LAB BLOOD ORDERABLES Fi nal Result Performing Organization Address [facility] de Phone Number [facility] * (ABNORMAL) Hemoglobin A1c (05/27/2025 1:24 PM EDT) Hemoglobin A1C 13.3(H) <5.7 % [facility] Comment: For someone without known diabetes, a [...] A1c for diagnosis of diabetes for children. Blood Venous blood specimen / Unknown 05/27/2025 1:24 PM EDT 05/27/2025 1:25 PM EDT Narrative [facility] - 05/28/2025 6:54 AM EDT COLLECTION KIT GIVEN TO PATIENT. PATIENT ADVISED TO RETURN. Resulting Agency Comment Performing Organization Information Site ID: QPT Name: [facility] Address: [address] [place] [address], [address] [place] [phone] Director: Josep Amos MD Rosalva Mane MOTION STUDY TECHNICIAN LAB BLOOD ORDERABLES Fi nal Result [facility] * (ABNORMAL) Lipid panel (05/27/2025 1:24 PM EDT) [facility] Signature CHOLESTEROL, TOTAL 122 <200 mg/dL [facility] HDL CHOLESTEROL 38(L) > OR = 40 mg/dL [facility] TRIGLYCERIDES 78 <150 mg/dL [facility] LDL CHOLESTEROL 68 mg/dL (calc) [facility] Comment: Reference range: <100 Desirable range <100 mg/dL for primary prevention; <70 mg/dL for patients with CHD or diabetic patients with > or = 2 CHD risk factors. LDL-C is now calculated using the Micky-Rodriguez calculation, which is a validated novel method providing better accuracy than the Friedewald equation in the estimation of LDL-C. Micky SS et al. ROSEMARIE. 2013;310(19): 7762-3472 (http://education.AppFirst.com/faq/DDF952) CHOL/HDLC RATIO 3.2 <5.0 (calc) [facility] NON HDL CHOLESTEROL 84 <130 mg/dL (calc) [facility] Comment: For patients with diabetes plus 1 major ASCVD risk factor, treating to a non-HDL-C goal of <100 mg/dL (LDL-C of <70 mg/dL) is considered a therapeutic option. Blood Venous blood specimen / Unknown 05/27/2025 1:24 PM EDT 05/27/2025 1:25 PM EDT Narrative [facility] - 05/28/2025 6:54 AM EDT COLLECTION KIT GIVEN TO PATIENT. PATIENT ADVISED TO RETURN. Resulting Agency Comment Performing Organization Information Site ID: QPT Name: [facility] Address: [address] [place] [address] Director: Josep Amos MD us Rosalva Mane MOTION STUDY TECHNICIAN LAB BLOOD ORDERABLES Fi nal Result [facility] * (ABNORMAL) Comprehensive metabolic panel (05/27/2025 1:24 PM EDT) Glucose 158(H) 65 - 99 mg/dL [facility] Comment: Fasting reference interval For someone without known diabetes, a glucose value >125 mg/dL indicates that they may have diabetes and this should be confirmed with a follow-up test. BUN 41(H) 7 - 25 mg/dL [facility] Creatinine 0.97 0.70 - 1.35 mg/dL [facility] EGFR 86 > OR = 60 mL/min/1.7 3m2 [facility] BUN/CREATININE RATIO 42(H) 6 - 22 (calc) [facility] Sodium 139 135 - 146 mmol/L [facility] Potassium, Bld 3.5 3.5 - 5.3 mmol/L [facility] Chloride 101 98 - 110 mmol/L [facility] Carbon Dioxide 28 20 - 32 mmol/L [facility] Calcium 8.8 8.6 - 10.3 mg/dL [facility] PROTEIN, TOTAL 6.1 6.1 - 8.1 g/dL [facility] ALBUMIN 4.0 3.6 - 5.1 g/dL [facility] GLOBULIN 2.1 1.9 - 3.7 g/dL (calc) [facility] ALBUMIN/GLOBULIN RATIO 1.9 1.0 - 2.5 (calc) [facility] BILIRUBIN, TOTAL 0.9 0.2 - 1.2 mg/dL [facility] ALKALINE PHOSPHATASE 67 35 - 144 U/L [facility] AST 14 10 - 35 U/L [facility] ALT 15 9 - 46 U/L [facility] Blood Venous blood specimen / Unknown 05/27/2025 1:24 PM EDT 05/27/2025 1:25 PM EDT Narrative [facility] - 05/28/2025 6:54 AM EDT COLLECTION KIT GIVEN TO PATIENT. PATIENT ADVISED TO RETURN. Resulting Agency Comment Performing Organization Information Site ID: QPT Name: [facility] Address: [address] [place] [address] Director: Josep Amos MD Rosalva Mane MOTION STUDY TECHNICIAN LAB BLOOD ORDERABLES Fi nal Result Performing Organization Address [facility] de Phone Number [facility] * Microalbumin / creatinine urine ratio (02/07/2024 2:18 PM EDT) CREATININE, RANDOM URINE 20 20 - 320 mg/dL [facility] ALBUMIN, URINE 0.2 See Note: mg/dL [facility] Comment: Reference Range: Reference Range Not established ALBUMIN/CREATININE RATIO, RANDOM URINE 10 <30 mg/g creat [facility] Comment: The ADA defines abnormalities in albumin excretion as follows: Albuminuria Category Result (mg/g creatinine) Normal to Mildly increased <30 Moderately increased 30-299 Severely increased > OR = 300 The ADA recommends that at least two of three specimens collected within a 3-6 month period be abnormal before considering a patient to be within a diagnostic category. Urine Urine specimen obtained by clean catch procedure / Unknown 02/07/2024 2:18 PM EDT 02/07/2024 2:19 PM EDT Narrative Resulting Agency Comment Performing Organization Information Site ID: QPT Name: [facility] Address: [address] [place] [address], [address] [place] [phone] Director: Josep Amos MD Rosalva Mane MOTION STUDY TECHNICIAN LAB URINE ORDERABLES Fi nal Result Performing Organization Address [facility] de Phone Number [facility] * Color Fundus Photography - OU - Both Eyes (07/24/2019 12:00 PM EDT) Anatomical Region Laterality Modality Head Fundus Photograp hy 07/24/2019 12:0 0 PM EDT Narrative 07/24/2019 12:00 PM EDT PERFORMED AT [facility] LOCATION:[id number] No DM Retinopathy Procedure Note CONVERSION, GENERIC - 03/09/2023 PERFORMED AT [facility] LOCATION:[id number] No DM Retinopathy [facility] OPHTH PHOTOGRAPHY Final Result * Cologuard?? colon cancer screening (06/29/2019) COLOGUARD RESULT REPORTABLE Negative Not Applicable [facility] Comment: A negative result indicates a low likelihood that a colorectal cancer (CRC) or an advanced adenoma (adenomatous polyps with more advanced pre-malignant features) is present. The chance that a person with a negative Cologuard test has a colorectal cancer is less than 1 in 1500 (negative predictive value >99.9%) or has an advanced adenoma is less than 5.3% (negative predictive value 94.7%). These data are based on a prospective cross-sectional screening study of 10,000 individuals at average risk for colorectal cancer who were screened with both Cologuard and colonoscopy. (Bernadette Park. et al, N Engl J Med 2014;370(14):5903-1981) COLOGUARD RE-SCREENING RECOMMENDATION: Periodic routine colorectal cancer screening is an important part of preventive healthcare for asymptomatic persons at average risk for colorectal cancer. Following a negative Cologuard result, the [place] Cancer Society and U.S. Multi-Society Task Force screening guidelines recommend a Cologuard re-screening interval of 3 years. References: [place] [employer] Society (ACS). Colorectal cancer prevention and early detection. [place], [place]: [place] [employer] Society; [updated 2015Feb 14]. https://www.cancer.org/cancer/egcie-mldads-iregpk/phcylpjuh-jqpzvvgqd-ewxenmh/ac s-rec ommendations.html. Accessed June 23, 2018; Matthew DK, Lorraine CR, Terri RodríguezK, Colorectal Cancer Screening: Recommendations for Physicians and Patients from the U.S. Multi-Society Task Force on Colorectal Cancer Screening, Am J Gastroenterology 2017; 112:8860-7369. Test Type: Composite algorithmic analysis of stool DNA-biomarkers with hemoglobin immunoassay. Quantitative values of individual biomarkers are not reportable and are not associated with individual biomarker result reference ranges. Precautions and Limitations: Cologuard is intended for colorectal cancer screening of adults of either sex, 50 years or older, who are at typical average-risk for colorectal cancer. A negative Cologuard test result does not guarantee the absence of co lorectal cancer or advanced adenoma (pre-cancer). Patients with a negative Cologuard test result should be advised to continue participating in a colorectal cancer screening program. Cologuard may produce a positive result, even though a colonoscopy may not find colorectal cancer or precancerous polyps. The performance of Cologuard has been established in a cross sectional study (i.e., single point in time). Performance has not been evaluated in adults who have been previously tested with Cologuard or in patients less than 50 years of age. Cologuard has been approved for use by the U.S. FDA. Cologuard performance data in a 10,000 patient pivotal study using colonoscopy as the reference method can be accessed at the following location: www.[email or web address]/results. Additional description of the Cologuard test process, warnings and precautions can be found at www.cologuardtest.com. Rx Only. 06/29/2019 [facility] AYDE FONSECA Final Result [facility] from Last 3 Months or Most Recently Relevant to Health Maintenance Insurance MEDICARE Care Teams Operations Tech Relationship Specialty Start Date End Date Cindy Reyes MD [address] [facility] [place] [address] PCP - General Family Medicine 07/27/24 Rosalva Mane NP [address] [facility] [place] [phone] Nurse Practitioner Family Medicine 07/27/24
--- OUTSIDE RECORDS SUMMARY | 2025-06-13 13:16 | XMS_ITS | Encounter Summary ---
Author Organization [facility] Healthcare Address [address] [place] [address] Care Team Providers Care Microbiology Laboratory Manager Name Role Phone Greta Maharaj DO Primary Care Provider [phone] Hellen Lora WIRE BORDER ASSEMBLER-SAWMILL EQUIPMENT OPERATOR Unavailable Greta Maharaj DO Unavailable [phone] Cindy Reyes MD Primary Care Provider [phone] Rosalva Mane IOS SOFTWARE ENGINEER Unavailable [phone] Greta Maharaj DO Unavailable [phone] Encounter Details Date Type Department Care Team (Late st Contact Info) Description 03/31/2023 Abstract [facility] Family Medicine [address] [facility] [place] [address] Greta Maharaj, DO [address] [facility] [address] [place] [address] Social History Tobacco Use Types Packs/Day Years Used Date Smoking Tobacco: Never Smokeless Tobacco: Never Alcohol Use Standard Drinks/Week Comments Not Currently [...] How often do you attend chur or faith services? Never 03/29/2023 Do you belong to any clubs o r organizations such as scientology groups, unions, fraternal or athletic groups, or [...] Recorded Patient Health Questionnaire-2 Score 0 03/29/2023 [facility] [place] [facility] Occupat ional Health - Occupational Stress [...] place to sleep or slept in a fpc (including now)? No 03/29/2023 Sex and Gender [...] PM EDT documented as of this encounter Plan of Treatment Upcoming Encounters Date Type Department Care Team (Late st Contact Info) Description 06/25/2025 2:00 PM EDT Office Visit [facility] [address] [place] [id number] Rosalva Mane NP [address] [place] [address] 08/22/2025 1:05 PM EDT Office Visit [facility] [place] [facility] [address] [place] [phone] Hellen Lora, WIRE BORDER ASSEMBLER-SAWMILL EQUIPMENT OPERATOR [address] [place] [address] documented as of this encounter Visit Diagnoses Not on filedocumented in this encounter Care Teams Microbiology Laboratory Manager Relationship Specialty Start Date End Date Greta Maharaj DO PCP - General Family Medicine 03/29/23 07/26/24 Hellen Lora, STEPHAN-SAWMILL EQUIPMENT OPERATOR [address] [place] [address] PCP - FFS [facility] 01/22/23 01/22/24 Greta Maharaj DO [address] [facility] [address] [place] [address] PCP - ACO Reach 12/23/23 11/29/24 Cindy Reyes MD [address] [place], [place] [id number] PCP - General Family Medicine 07/27/24 Greta Maharaj DO [address] [facility] [address] [place] [address] PCP - ACO Reach 12/07/24 01/24/25 Rosalva Mane NP [address] [place], [place] [phone] Nurse Practitioner Family Medicine 07/27/24 documented as of this encounter
--- OUTSIDE RECORDS SUMMARY | 2025-06-13 13:16 | XMS_ITS | Encounter Summary ---
Author Organization [facility] Healthcare Address [address] [place] [address] Care Team Providers Care Eyedotter Name Role Phone Cindy Reyes MD Primary Care Provider [phone] Rosalva Mane NATIONAL SALES TRAINER Unavailable [phone] Encounter Details Date Type Department Care Team (Late st Contact Info) Description 06/03/2025 Results Follow-Up [facility] Family Medicine [address] [place] [address] Rosalva Mane NATIONAL SALES TRAINER [address] [place], [place] [id number] CBC and differential, PSA, Lipid panel, Additional followed-up results: 2 Social History Tobacco Use Types Packs/Day Years [...] 03/29/2023 How often do you attend chur ch or baptist services? Never 03/29/2023 Do you belong to any clubs o r organizations such as buddhist groups, unions, fraternal or athletic groups, or [...] Recorded Patient Health Questionnaire-2 Score 0 05/27/2025 [facility] Occupat [facility] - Occupational Stress Questionnaire Answer Date Recorded [...] place to sleep or slept in a usp (including now)? No 03/29/2023 Sex and Gender Information Value Date Recorded Sex Assigned at Not on file Legal Sex Male 7:59 PM EDT Gender Identity Male 01/05/2023 7:59 PM EDT Sexual Orientation Not on file documented as of this encounter Miscellaneous Notes * Telephone Encounter - Concetta Kinsey MA - 06/05/2025 2:18 PM EDT Gave message pt understood * Telephone Encounter - Cindy Ferrell MA - 06/03/2025 2:51 PM EDT LMOM Letting pt know to return call to the office * Telephone Encounter - Cindy Ferrell MA - 06/03/2025 2:50 PM EDT ----- Message from Rosalva Mane sent at 06/03/2025 2:46 PM EDT ----- 06/25 is fine thanks ----- Message ----- From: Cindy Ferrell MA Sent: 06/03/2025 2:15 PM EDT To: Rosalva Mane NP ----- Message from Cindy Ferrell MA sent at 06/03/2025 2:15 PM EDT ----- * Result Encounter Note - Rosalva Mane NP - 06/03/2025 2:46 PM EDT 06/25 is fine thanks * Telephone Encounter - Cindy Ferrell MA - 06/03/2025 2:15 PM EDT Before I call him he has an appt 06/25 is that okay or would you like sooner . Let me know thanks! * Telephone Encounter - Cindy Ferrell MA - 06/03/2025 2:15 PM EDT ----- Message from Rosalva Mane sent at 06/03/2025 10:15 AM EDT ----- Let patient know his hgba1c result. Let him know he needs to increase his water intake and make himan appointment in 2 weeks and tell him to monitor blood sugars and bring readings in at that appointment. He had restarted his diabetic medications and I need to recheck his blood sugars thanks ----- Message ----- From: [facility] Results In Sent: 05/28/2025 6:57 AM EDT To: Rosalva Mane NP * Result Encounter Note - Rosalva Mane NP - 06/03/2025 10:15 AM EDT Let patient know his hgba1c result. Let him know he needs to increase his water intake and make himan appointment in 2 weeks and tell him to monitor blood sugars and bring readings in at that appointment. He had restarted his diabetic medications and I need to recheck his blood sugars thanks documented in this encounter Plan of Treatment Upcoming Encounters Date Type Department Care Team (Late st Contact Info) Description 06/25/2025 2:00 PM EDT Office Visit [facility] [address] [place] [address] Rosalva Mane NP [address] [place], [place] [phone] 08/22/2025 1:05 PM EDT Office Visit [facility] [address] [place] [phone] Hellen Lora, ENVIRONMENTAL EDUCATION SPECIALIST-TOOLING SPECIALIST [address] [place] [address] documented as of this encounter Visit Diagnoses Not on filedocumented in this encounter Additional Health Concerns Assessment Noted Time PHQ-9 Depression Total Score: 2 05/27/20 25 12:00 PM EDT documented as of this encounter Care Teams Eyedotter Relationship Specialty Start Date End Date Cindy Reyes MD [address] [place], [place] [id number] PCP - General Family Medicine 07/27/24 Rosalva Mane NP [address] [place] [address] Nurse Practitioner Family Medicine 07/27/24 documented as of this encounter
--- OUTSIDE RECORDS SUMMARY | 2025-06-13 13:33 | XMS_ITS | CCD ---
Author Organization [facility] Care Team Providers Care Drum Builder Name Role Phone RICYH OWENS Attending Unavailable BRENNA, DR BARTON Primary Care Unavailable RICHY OWENS Admitting Unavailable GRACIELA, RICHY Lima Attending Unavailable BRENNA, DR BARTON Primary Care Unavailable RICHY OWENS Admitting Unavailable GRACIELA, RIHCY Lima Attending Unavailable BRENNA, DR BARTON Primary Care Unavailable RICHY OWENS Admitting Unavailable GRACIELA, RICHY Lima Attending Unavailable BRENNA, DR BARTON Primary Care Unavailable RICHY OWENS Admitting Unavailable Greta Maharaj DO Unavailable Cindy Reyes MD Primary Care Provider Antonietta ROD POINTER, Rosalva Richards Unavailable Scar Handy MD Primary Care Provider [phone] ROSALVA MANE Primary Care Unavailab driss MANE, ROSALVA Richards Attending Unavailab le ANTONIETTA, ROSALVA Richards Attending Unavailab driss MANE, ROSALVA Richards Attending Unavailab driss MANE, ROSALVA Richards Attending Unavailab le ANTONIETTA, ROSALVA Richards Referring Unavailab HELLEN Nicole Attending Unavailable Medications Current Medications Medication Drug Class(es) Dates Sig (Normalized) Sig (Original) aspirin 81 mg delayed release oral tablet (20 sources) Platelet Aggregation Inhibitor, Nonsteroidal Anti-inflammatory Drug take 1 tablet by mouth in the morning aspirin (ASPIR) 81 MG EC tablet Take 81 mg by mouth in the morning. Active atorvastatin 20 mg oral tablet (20 sources) HMG-CoA Reductase Inhibitor Start: 04-24-2025 take 1 tablet by mouth once daily atorvastatin (Lipitor) 20 MG tablet Indications: Mixed hyperlipidemia Take 1 tablet (20 mg) by mouth Daily 90 tablet 1 04/24/2025 Active Start: 02-07-2024 End: 08-13-2024 take 1 tablet by mouth once daily atorvastatin (Lipitor) 20 MG tablet Indications: Mixed hyperlipidemia (CMS/HCC) Take 1 tablet (20 mg) by mouth Daily 90 tablet 1 08/13/2024 Active take 1 tablet by suzie th in the morning atorvastatin (LIPITOR) 20 mg tablet Take 1 tablet (20 mg total) by mouth in the morning. 0 Active 0.5 ml dulaglutide 1.5 mg/ml auto-injector (7 sources) GLP-1 Receptor Agonist Start: 11-21-2024 inject 0.75 mg by subcutaneous injection every week Dulaglutide (Trulicity) 0.75 MG/0.5ML solution auto-injector Indications: Type 2 diabetes mellitus with diabetic neuropathy, without long-term current use of insulin (HCC) Inject 0.75 mg under the skin 1 (one) time per week 0.5 mL 1 11/21/2024 Active fluocinonide 0.0005 mg/mg topical ointment (20 sources) Corticosteroid Start: 08-11-2023 fluocinonide (Lidex) 0.05 % ointment Indications: Psoriasis vulgaris Apply to affected areas bid prn 60 g 11 08/11/2023 Active furosemide 20 mg oral tablet (20 sources) Loop Diuretic Start: 07-28-2024 take 1 [...] 0 Active gabapentin 600 mg oral tablet (20 sources) Anti-epileptic Agent Start: 05-09-2024 End: 05-09-2025 take 1 tablet by mouth in the morning gabapentin (Neurontin) 600 MG tablet Indications: Polyneuropathy associated with underlying disease (HCC) Take 1 tablet (600 mg) by mouth in the morning and 1 tablet (600 mg) before bedtime. 180 tablet 3 05/09/2024 Active take 1 tablet by suzie th in the morning, then take 1 tablet by mouth at bedtime gabapentin (NEURONTIN) 600 mg tablet Alo e 1 tablet (600 mg total) by mouth in the morning and 1 tablet (600 mg total) before bedtime. 0 Active glimepiride 4 mg oral tablet (20 sources) Sulfonylurea Start: 11-15-2023 End: 08-13-2025 take 1 tablet by mouth once daily at bedtime glimepiride (Amaryl) 4 MG tablet Indications: Type 2 diabetes mellitus with diabetic neuropathy, without long-term current use of insulin (HCC) TAKE 1 TABLET BY MOUTH EVERY MORNING AND BEFORE BEDTIME 180 tablet 2 08/14/2024 Active hydroCHLOROthiazide 12.5 mg / lisinopril 20 mg oral tablet (20 sources) Thiazide Diuretic, Angiotensin Converting Enzyme Inhibitor Start: 11-13-2024 End: 11-13-2025 take 1 tablet by mouth once daily lisinopril-hydroC HLOROthiazide 20-12.5 MG tablet Indications: Primary hypertension Take 1 tablet by mouth Daily 100 tablet 3 11/13/2024 11/13/2025 Active Start: 10-12-2023 End: 11-13-2024 take 1 tablet by mouth in the morning lisinopril-hydroCHLOROthiazide 20-12.5 M G tablet Indications: Primary hypertension (CMS/HCC) Take 1 tablet by mouth in the morning. 100 tablet 3 10/12/2023 11/13/2024 Discontinued (Reorder) take 1 tablet by suzie th once in the morning lisinopril-hydroCHLOROthiazide (PRINZIDE,ZESTORETIC) 20-12.5 mg per tablet Take 1 tablet by mouth in the morning. 0 Active ammonium lactate 120 mg/ml topical lotion (20 sources) Start: 02-01-2024 ammonium lacta te (Lac-Hydrin) 12 % lotion 02/01/2024 Active metFORMIN hydrochloride 850 mg oral tablet (20 sources) Biguanide Start: 04-24-2025 take 1 tablet by mouth in the morning metFORMIN (Glucophage) 850 MG tablet Indications: Type 2 diabetes mellitus with diabetic neuropathy, without long-term current use of insulin (HCC) Take 1 tablet (850 mg) by mouth in the morning and 1 tablet (850 mg) in the evening. Take with meals. 180 tablet 3 04/24/2025 Active Start: 02-07-2024 take 1 tablet by suzie th in the morning metFORMIN (Glucophage) 850 MG [...] 0 Active Tapinarof (Vtama) 1 % cream (14 sources) Start: 08-21-2024 Tapinarof (Vta ma) 1 % cream Indications: Psoriasis vulgaris Apply 2 g topically Daily 60 g 11 08/21/2024 Active Start: 08-21-2024 Tapinarof (Vta ma) 1 % cream Indications: Psoriasis vulgaris (CMS/HCC) Apply 2 g topically Daily 60 g 11 08/21/2024 Active triamcinolone acetonide 1 mg/ml topical cream (20 sources) Corticosteroid Start: 05-09-2023 triamcinolone (Kenalog) 0.1 % cream Indications: Other atopic dermatitis Apply topically 2 (two) times a day as needed for rash (use when flared, hold when clear). apply to trunk, arms, legs 454 g 05/09/2023 Active Problems Active Problems Problem Classification Problem Date Documented Da te Episodic/Chronic Allergic reactions (20 sources) Atopic dermatitis; Translations: [Atopic dermatitis, unspecified] Onset: 02-28-2023 02-28-2023 Chronic Cardiac dysrhythmias (2 sources) Irregular heart beat; Translations: [Cardiac arrhythmia, unspecified] 02-19-2025 Chronic Cataract (20 sources) Unspecified cataract; Translations: [Artificial lens present] Onset: 09-02-2022 02-28-2023 Chronic Diabetes mellitus with complications (20 sources) Type 2 diabetes mellitus with diabetic neuropathy, unspecified; Translations: [Type 2 diabetes mellitus with hyperglycemia] Onset: 05-28-2022 Chronic Disorders of lipid metabolism (20 sources) Mixed hyperlipidemia; Translations: [Mixed hyperlipidemia] Onset: 02-28-2023 02-28-2023 Chronic Essential hypertension (20 sources) Essential hypertension; Translations: [Essential (primary) hypertension] Onset: 02-28-2023 3 Chronic Osteoarthritis (20 sources) Primary gonarthrosis, bilateral; Translations: [Bilateral primary osteoarthritis of knee] Onset: 02-28-2023 02-28-2023 Chronic Other circulatory disease (4 sources) Low blood pressure; Translations: [Hypotension, unspecified] Onset: 02-19-2025 02-19-2025 Episodic Other diseases of veins and lymphatics (1 source) Lymphedema, not elsewhere classified; Translations: [LYMPHEDEMA NOT ELSEWHERE CLASSIFIED] Onset: 09-02-2022 Chronic Other diseases of veins and lymphatics (20 sources) Disorder of vein of lower extremity; Translations: [Venous insufficiency (chronic) (peripheral)] Onset: 02-28-2023 07-27-2024 Episodic Other eye disorders (20 sources) Pigment dispersion syndrome of bilateral eyes; Translations: [Degeneration of iris (pigmentary), bilateral] Onset: 02-28-2023 02-28-2023 Episodic Other inflammatory condition of skin (20 sources) Psoriasis; Translations: [Psoriasis, unspecified] Onset: 02-28-2023 02-28-2023 Chronic Other inflammatory condition of skin (2 sources) Psoriasis vulgaris; Translations: [Psoriasis vulgaris] 08-21-2024 Chronic Other nervous system disorders (20 sources) Chronic pain; Translations: [Other chronic pain] Onset: 02-28-2023 02-28-2023 Chronic Other nervous system disorders (20 sources) Polyneuropathy associated with another disorder; Translations: [...] Chronic Other nutritional; endocrine; and metabolic disorders (20 sources) Morbid obesity; Translations: [Morbid (severe) obesity due to excess calories] Onset: 02-28-2023 02-28-2023 Chronic Other nutritional; endocrine; and metabolic disorders (2 sources) Obesity caused by energy imbalance; Translations: [Morbid (severe) obesity due to excess calories] 11-13-2024 Chronic Other nutritional; endocrine; and metabolic disorders (2 sources) Body mass index 30+ - obesity; Translations: [Body mass index (BMI) 35.0-35.9, adult] 11-13-2024 Chronic Other screening for suspected conditions (not mental disorders or infectious disease) (7 sources) Encounter for screening, unspecified; Translations: [Patient encounter status] Onset: 02-19-2025 05-27-2025 Episodic Peripheral and visceral atherosclerosis (20 sources) Peripheral vascular disease, unspecified; Translations: [Peripheral vascular disease, unspecified] Onset: 09-02-2022 02-28-2023 Chronic Spondylosis; intervertebral disc disorders; other back problems (20 sources) Degeneration of lumbar intervertebral disc; Translations: [Lumbar degenerative disc disease] Onset: 02-28-2023 02-28-2023 Chronic Spondylosis; intervertebral disc disorders; other back problems (20 sources) Sciatica, unspecified side; Translations: [Spinal stenosis of lumbar region] Onset: 09-02-2022 02-28-2023 Episodic Past or Other Problems Problem Classification Problem Date Documented Date Episodic/Chronic Chronic ulcer of skin (20 sources) Superficial skin ulcer of lower limb; Translations: [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 of skin] Onset: 02-28-2023 Resolved: 05-27-2025 02-28-2023 Chronic Mood disorders (3 sources) Mood disorders; Translations: [DEPRESSION UNSPECIFIED] Onset: 09-02-2022 05-27-2025 Mycoses (1 source) Tinea unguium; Translations: [TINEA [...] edema; Translations: [LOCALIZED EDEMA] Onset: 11-30-2022 Episodic Results Test Name Value Interpretation Reference Range Facil ity HbA1c (Bld) [Mass fraction]o n 08-13-2024 Interpretation and review of laboratory results Abnormal [facility] - Hematology and Cell countson 08-13-2024 HbA1c (Bld) [Mass fraction] 7.5 % [facility] XR KNEE 4+ VIEWS LEFTon 07-25 XR [...] of total Hgb High <5.7 No rthern [place] [employer] Comment on above: Order Comment: [facility] performed at: [employer], [facility], [address] [place] [address], [address] [place] [address], [place], [address], [employer] Driver: Josep Amos MD [facility] Collection Date/Time: [id number] [facility] Results Received Date/Time: [facility] Reported Date/Time: [...] A1C, 42A #### [facility] Default [address] [place] [address] Q - CBC W/DIFF AND PLTon BASOABS 39 cells/uL Normal 0-200 [facility] Comment on above: Order Comment: [facility] performed at: [employer] [facility], [address] [place] [address], [address] [place] [address], [address] [place] [address], [employer] Driver: Josep Amos MD [facility] Date/Time: [facility] Results Received Date/Time: [facility] Reported Date/Time: Performed By: #### 1 , 968T, A1C, 42A #### [facility] [address] [place] [address] Basophils/100 WBC (Bld) 0.7 % Normal [facility] Comment on above: Order Comment: [facility] performed at: [employer] [facility], [address] [facility], [address] [place] [address], [address] [place] [address], [employer] Driver: Josep Amos MD [facility] Date/Time: [facility] Results Received Date/Time: [facility] Reported Date/Time: Performed By: #### 1 0231A, 968T, A1C, 42A #### [facility] [address] [place] [address] EOSABS 218 cells/uL Normal 15-500 [facility] [employer] Specialist Comment on above: Order Comment: [facility] performed at: [employer], [facility], [address] , [address] [place] [address], [address] [place] [address], [employer] Driver: Josep Amos MD [facility] Collection Date/Time: [facility] Results Received Date/Time: [facility] Reported Date/Time: Performed By: #### 1 0231A, 968T, A1C, 42A #### [facility] [address] [place] [address] Eosinophils/100 WBC (Bld) 3.9 % Normal [facility] [employer] Specialist Comment on above: Order Comment: [facility] performed at: [employer], [facility], [address] [facility], [address] [place] [address], [address] [place] [address], [employer] Driver: Josep Amos MD [facility] Date/Time: [facility] Results Received Date/Time: [facility] Reported Date/Time: Performed By: #### 1 0231A, 968T, A1C, 42A #### [facility] [address] [place] [address] Erythrocyte distribution width (RBC) [Ratio] 13.2 % Normal 11.0-15.0 [facility] [employer] Specialist Comment on above: Order Comment: [facility] performed at: [employer], [facility], [address] , [address] [place] [address], [address] [place] [address], [employer] Driver: Josep Amos MD [facility] Date/Time: [facility] Results Received Date/Time: [facility] Reported Date/Time: Performed By: #### 1 0231A, 968T, A1C, 42A #### [facility] [address] [place] [address] Hematocrit (Bld) [Volume fraction] 39.4 % Normal 38.5-50.0 [facility] [employer] Specialist Comment on above: Order Comment: [facility] performed at: [employer], [facility], [address] , [address] [place] [address], [address] [place] [address], [employer] Driver: Josep Amos MD [facility] Date/Time: [facility] Results Received Date/Time: [facility] Reported Date/Time: Performed By: #### 1 0231A, 968T, A1C, 42A #### [facility] [address] [place] [address] Hemoglobin (Bld) [Mass/Vol] 13.1 g/dL Low 13.2-17.1 [facility] [employer] Specialist Comment on above: Order Comment: [facility] performed at: [employer], [facility], [address] [facility], [address] [place] [address], [id number], [employer] Driver: Josep Amos MD [facility] Date/Time: [facility] Results Received Date/Time: [facility] Reported Date/Time: Performed By: #### 1 0231A, 968T, A1C, 42A #### [facility] [address] [place] [address] Lymphocytes (Bld) [#/Vol] 1.288 10*3/uL Normal 850-3900 [facility] [employer] Specialist Comment on above: Order Comment: [facility] performed at: [employer] [facility], [address] , [address] [place] [address], [address] [place] [address], [employer] Driver: Josep Amos MD [facility] Date/Time: [facility] Results Received Date/Time: [facility] Reported Date/Time: Performed By: #### 1 0231A, 968T, A1C, 42A #### [facility] [address] [place] [address] Lymphocytes/100 WBC (Bld) 23.0 % Normal [facility] [employer]ist Comment on above: Order Comment: [facility] performed at: [employer], [facility], [address] , [address] [place] [address], [phone], [employer] Driver: Josep Amos MD [facility] Date/Time: [facility] Results Received Date/Time: [facility] Reported Date/Time: Performed By: #### 1 0231A, 968T, A1C, 42A #### [facility] [address] [place] [address] MCH (RBC) [Entitic mass] 29.2 pg Normal 27.0-33.0 [facility] [employer] Specialist Comment on above: Order Comment: [facility] performed at: [employer], [facility], [address] [place] [address], [address] [place] [address], [address] [place] [address], [employer] Driver: Josep Amos MD [facility] Date/Time: [facility] Results Received Date/Time: [facility] Reported Date/Time: Performed By: #### 1 0231A, 968T, A1C, 42A #### [facility] [address] [place] [address] MCHC (RBC) [Mass/Vol] 33.2 g/dL Normal 32.0-36.0 [facility] [employer] Specialist Comment on above: Order Comment: [facility] performed at: [employer], [facility], [address] [place] [address], [address] [place] [address], [address] [place] [address], [employer] Driver: Josep Amos MD [facility] Date/Time: [facility] Results Received Date/Time: [facility] Reported Date/Time: Performed By: #### 1 0231A, 968T, A1C, 42A #### [facility] [address] [place] [address] MCV (RBC) [Entitic vol] 87.9 fL Normal 80.0-100.0 [facility] [employer]ist Comment on above: Order Comment: [facility] performed at: [employer], [facility], [address] [place] [address], [address] [place] [address], [address] [place] [address], [employer] Driver: Josep Amos MD [facility] Date/Time: [facility] Results Received Date/Time: [facility] Reported Date/Time: Performed By: #### 1 0231A, 968T, A1C, 42A #### [facility] [address] [place] [address] MONOABS 414 cells/uL Normal 200-950 [facility] Specialist Comment on above: Order Comment: [facility] performed at: [employer], [facility], [address] , [address] [place] [address], [address] [place] [address], [employer] Driver: Josep Amos MD [facility] Date/Time: [facility] Results Received Date/Time: [facility] Reported Date/Time: Performed By: #### 1 0231A, 968T, A1C, 42A #### [facility] [address] [place] [address] Monocytes/100 WBC (Bld) 7.4 % Normal [facility] Comment on above: Order Comment: [facility] performed at: [employer], [facility], [address] [facility], [address] [place] [address], [address] [place] [address], [employer] Driver: Josep Amos MD [facility] Collection Date/Time: [facility] Results Received Date/Time: [facility] Reported Date/Time: Performed By: #### 1 0231A, 968T, A1C, 42A #### [facility] [address] [place] [address] Neutrophils (Bld) [#/Vol] 3.64 10*3/uL Normal 9889-3810 [place] Specialist Comment on above: Order Comment: [facility] performed at: [employer], [facility], [address], [address] [place] [address], [address] [place] [address], [employer] Driver: Josep Amos MD [facility] Collection Date/Time: [facility] Results Received Date/Time: [facility] Reported Date/Time: Performed By: #### 1 0231A, 968T, A1C, 42A #### [facility] [address] [place] [address] Neutrophils/100 WBC (Bld) 65 % Normal [place] Specialist Comment on above: Order Comment: [facility] performed at: [employer], [facility], [address] [facility], [address] [place] [address], [address] [place] [address], [employer] Driver: Josep Amos MD [facility] Collection Date/Time: [facility] Results Received Date/Time: [facility] Reported Date/Time: Performed By: #### 1 0231A, 968T, A1C, 42A #### [facility] [address] [place] [address] Platelet mean volume (Bld) [Entitic vol] 10.4 fL Normal 7.5-12.5 [facility] Comment on above: Order Comment: [facility] performed at: [employer], [facility], [address] [place] [address], [address] [place] [address], [address] [place] [address], [employer]: Josep Amos MD [facility] Collection Date/Time: [facility] Results Received Date/Time: [facility] Reported Date/Time: Performed By: #### 1 0231A, 968T, A1C, 42A #### [facility] [address] [place] [address] Platelets (Bld) [#/Vol] 208 10*3/uL Normal 140-400 [place] Specialist Comment on above: Order Comment: [facility] performed at: [employer] [facility], [address] [place] [address], [address] [place] [address], [address] [place] [address], [employer] Driver: Josep Amos MD [facility] Collection Date/Time: [facility] Results Received Date/Time: [facility] Reported Date/Time: Performed By: #### 1 0231A, 968T, A1C, 42A #### [facility] [address] [place] [address] RBC (Bld) [#/Vol] 4.48 10*6/uL Normal 4.20-5.80 [facility] Comment on above: Order Comment: [facility] performed at: [employer], [facility], [address] [place] [address], [address] [place] [address], [address] [place] [address], [employer]: Josep Amos MD [facility] Collection Date/Time: [facility] Results Received Date/Time: [facility] Reported Date/Time: Performed By: #### 1 0231A, 968T, A1C, 42A #### [facility] [address] [place] [address] WBC (Bld) [#/Vol] 5.6 10*3/uL Normal 3.8-10.8 Chyna marin [place] [employer] Comment on above: Order Comment: [facility] performed at: [employer], [facility], [address] [place] [address], [address] [place] [address], [address] [place] [address], [employer]: Josep Amos MD [facility] Collection Date/Time: [facility] Results Received Date/Time: [facility] Reported Date/Time: Performed By: #### 1 0231A, 968T, A1C, 42A #### [facility] Default [address] [place] [address] Q - COMPREHENSIVE METABOLIC PANEL W/EGFRon 02-04-2022 Albumin [Mass/Vol] 4.1 g/dL Normal 3.6-5.1 Chyna marin [place] [employer] Comment on above: Order Comment: [facility] performed at: [employer], [facility], [address] [place] [address], [address] [place] [address], [address] [place] [address], [employer]: Josep Amos MD [facility] Collection Date/Time: [facility] Results Received Date/Time: [facility] Reported Date/Time: Performed By: #### 1 0231A, 968T, A1C, 42A #### [facility] [address] [place] [address] Albumin/Globulin [Mass ratio] 1.6 {ratio} Normal 1.0-2.5 [facility] [employer] Specialist Comment on above: Order Comment: [facility] performed at: [employer], [facility], [address] [place] [address], [address] [place] [address], [address] [place] [address], [employer] Driver: Josep Amos MD [facility] Collection Date/Time: [facility] Results Received Date/Time: [facility] Reported Date/Time: Performed By: #### 1 0231A, 968T, A1C, 42A #### [facility] Default [address] [place] [address] ALP [Catalytic activity/Vol] 76 U/L Normal 35-144 [place] Specialist Comment on above: Order Comment: [facility] Testing performed at: [employer], [facility], [address] [place] [address], [address] [place] [address], [address] [place] [address], [employer]icated [employer] Driver: Josep Amos MD [facility] Collection Date/Time: [facility] Results Received Date/Time: [facility] Reported Date/Time: Performed By: #### 1 0231A, 968T, A1C, 42A #### [facility] [address] [place] [address] ALT [Catalytic activity/Vol] 21 U/L Normal 9-46 [place] Specialist Comment on above: Order Comment: [facility] Testing performed at: [employer], [facility], [address] [place] [address], [address] [place] [address], [address] [place] [address], [employer] Driver: Josep Amos MD [facility] Collection Date/Time: [facility] Results Received Date/Time: [facility] Reported Date/Time: Performed By: #### 1 0231A, 968T, A1C, 42A #### [facility] [address] [place] [address] AST [Catalytic activity/Vol] 16 U/L Normal 10-35 [place] Specialist Comment on above: Order Comment: [facility] Testing performed at: [employer], [facility], [address] [place] [address], [address] [place] [address], [address] [place] [address], [employer] Driver: Josep Amos MD [facility] Collection Date/Time: [facility] Results Received Date/Time: [facility] Reported Date/Time: Performed By: #### 1 0231A, 968T, A1C, 42A #### [facility] [address] [place] [address] Bilirubin [Mass/Vol] 0.6 mg/dL Normal 0.2-1.2 Refugio freeman [place] [employer] Specialist Comment on above: Order Comment: [facility] Testing performed at: [employer], [facility], [address] [facility], [address] [place] [address], [address] [place] [address], [employer] Driver: Josep Amos MD [facility] Collection Date/Time: [facility] Results Received Date/Time: [facility] Reported Date/Time: Performed By: #### 1 0231A, 968T, A1C, 42A #### [facility] [address] [place] [address] BUN/CREA 26 NOT APPLICABLE Normal 6-22 [facility] [employer] Specialist Comment on above: Order Comment: [facility] Testing performed at: [employer], [facility], [address] [facility], [address] [place] [address], [address] [place] [address], [employer] Driver: Josep Amos MD [facility] Collection Date/Time: [facility] Results Received Date/Time: [facility] Reported Date/Time: Performed By: #### 1 0231A, 968T, A1C, 42A #### [facility] [address] [place] [address] Calcium [Mass/Vol] 9.0 mg/dL Normal 8.6-10.3 Chyna [facility] [employer] Specialist Comment on above: Order Comment: [facility] Testing performed at: [employer], [facility], [address] [facility], [address] [place] [address], [address] [place] [address], [employer] Driver: Josep Amos MD [facility] Collection Date/Time: [facility] Results Received Date/Time: [facility] Reported Date/Time: Performed By: #### 1 0231A, 968T, A1C, 42A #### [facility] [address] [place] [address] Chloride [Moles/Vol] 105 mmol/L Normal 98-110 [facility] Comment on above: Order Comment: [facility] Testing performed at: [employer], [facility], [address] [facility], [address] [place] [address], [address] [place] [address], [employer] Driver: Josep Amos MD [facility] Collection Date/Time: [facility] Results Received Date/Time: [facility] Reported Date/Time: Performed By: #### 1 0231A, 968T, A1C, 42A #### [facility] [address] [place] [place] [address] CO2 [Moles/Vol] 29 mmol/L Normal 20-32 [place] Specialist Comment on above: Order Comment: [facility] Testing performed at: [employer], [facility], [address] [facility], [address] [place] [address], [address] [place] [address], [employer] Driver: Josep Amos MD [facility] Collection Date/Time: [facility] Results Received Date/Time: [facility] Reported Date/Time: Performed By: #### 1 0231A, 968T, A1C, 42A #### [facility] [address] [place] [address] Creatinine [Mass/Vol] 0.92 mg/dL Normal 0.70-1.25 [facility] [employer] Specialist Comment on above: Order Comment: [facility] Testing performed at: [employer], [facility], [address] [facility], [address] [place] [address], [address] [place] [address], [employer] Driver: Josep Amos MD [facility] Collection Date/Time: [facility] Results Received Date/Time: [facility] Reported Date/Time: Result Comment: For patients >49 years of age, the reference limit for Creatinine is approximately 13% higher for people identified as -Lebanese. Performed By: #### 1 0231A, 968T, A1C, 42A #### [facility] [address] [place] [address] eGFRAA ([facility]) 102 mL/min/1.73m2 Normal > OR = 60 Nor [facility] [employer] Specialist Comment on above: Order Comment: [facility] Testing performed at: [employer], [facility], [address] [place] [address], [address] [place] [address], [address] [place] [address], [employer] Driver: Josep Amos MD [facility] Collection Date/Time: [facility] Results Received Date/Time: [facility] Reported Date/Time: Performed By: #### 1 0231A, 968T, A1C, 42A #### [facility] Default [address] [place] [address] eGFRNAA (Quest) 88 mL/min/1.73m2 Normal > OR = 60 Nor [facility] [employer] Specialist Comment on above: Order Comment: [facility] Testing performed at: [employer], [facility], [address] [place] [address], [address] [place] [address], [address] [place] [address], [employer] Driver: Josep Amos MD [facility] Collection Date/Time: [facility] Results Received Date/Time: [facility] Reported Date/Time: Performed By: #### 1 0231A, 968T, A1C, 42A #### [facility] Default [address] [place] [address] Globulin (S) [Mass/Vol] 2.5 g/dL Normal 1.9-3.7 [facility] [employer] Specialist Comment on above: Order Comment: [facility] Testing performed at: [employer] [facility], [address] [place] [address], [address] [place] [address], [address] [place] [address], [employer] Driver: Josep Amos MD [facility] Collection Date/Time: [facility] Results Received Date/Time: [facility] Reported Date/Time: Performed By: #### 1 0231A, 968T, A1C, 42A #### [facility] [address] [place] [address] Glucose [Mass/Vol] 131 mg/dL High 65-99 [facility] [place] [employer] Specialist Comment on above: Order Comment: [facility] Testing performed at: [employer], [facility], [address] [facility], [address] [place] [address], [address] [place] [address], [employer] Driver: Josep Amos MD [facility] Collection Date/Time: [facility] Results Received Date/Time: [facility] Reported Date/Time: Result Comment: Fasting reference interval For someone without known diabetes, a glucose value >125 mg/dL indicates that they may have diabetes and this should be confirmed with a follow-up test. Performed By: #### 1 0231A, 968T, A1C, 42A #### [facility] Default [address] [place] [address] Potassium [Moles/Vol] 4.0 mmol/L Normal 3.5-5.3 [facility] Comment on above: Order Comment: [facility] Testing performed at: [employer], [facility], [address] [facility], [address] [place] [address], [address] [place] [address], [employer] Driver: Josep Amos MD [facility] Collection Date/Time: [facility] Results Received Date/Time: [facility] Reported Date/Time: Performed By: #### 1 0231A, 968T, A1C, 42A #### [facility] Default [address] [place] [address] Protein [Mass/Vol] 6.6 g/dL Normal 6.1-8.1 Chyna marin [place] [employer] Specialist Comment on above: Order Comment: [facility] Testing performed at: [employer], [facility], [address] [facility], [address] [place] [address], [address] [place] [address], [employer] Driver: Josep Amos MD [facility] Collection Date/Time: [facility] Results Received Date/Time: [facility] Reported Date/Time: Performed By: #### 1 0231A, 968T, A1C, 42A #### [facility] Default [address] [place] [address] Sodium [Moles/Vol] 140 mmol/L Normal 135-146 [facility] Comment on above: Order Comment: [facility] Testing performed at: [employer], [facility], [address] [place] [address], [address] [place] [address], [address] [place] [address], [employer] Driver: Josep Amos MD [facility] Collection Date/Time: [facility] Results Received Date/Time: [facility] Reported Date/Time: Performed By: #### 1 0231A, 968T, A1C, 42A #### [facility] Default [address] [place] [address] Urea nitrogen [Mass/Vol] 24 mg/dL Normal 7-25 [facility] [employer] Specialist Comment on above: Order Comment: [facility] Testing performed at: [employer], [facility], [address] [place] [address], [address] [place] [address], [address] [place] [address], [employer] Driver: Josep Amos MD [facility] Collection Date/Time: [facility] Results Received Date/Time: [facility] Reported Date/Time: Performed By: #### 1 0231A, 968T, A1C, 42A #### [facility] Default [address] [place] [address] Q - Lipid Panelon 02-04-2022 Cholesterol [Mass/Vol] 123 mg/dL Normal <200 [facility] [employer] Specialist Comment on above: Order Comment: [facility] Testing performed at: [employer] [facility], [address] [place] [address], [address] [place] [address], [address] [place] [address], [employer] Driver: Josep Amos MD [facility] Collection Date/Time: [facility] Results Received Date/Time: [facility] Reported Date/Time: Performed By: #### 1 0231A, 968T, A1C, 42A #### [facility] Default [address] [place] [address] Cholesterol in HDL [Mass/Vol] 30 mg/dL Low > OR = 40 [facility] [employer] Specialist Comment on above: Order Comment: [facility] Testing performed at: [employer], [facility], [address] [place], [address], [employer] Driver: Josep Amos MD [facility] Collection Date/Time: [facility] Results Received Date/Time: [facility] Reported Date/Time: Performed By: #### 1 0231A, 968T, A1C, 42A #### [facility] Default [address] [place] [address] Cholesterol in LDL [Mass/Vol] 76 mg/dL Normal [facility] [employer] Specialist Comment on above: Order Comment: [facility] Testing performed at: [employer], [facility], [address] [facility], [address] [place] [address], [phone], [employer] Driver: Josep Amos MD [facility] Collection Date/Time: [facility] [...] LDL-C. Micky OCHOA et al. ROSEMARIE. 2013;310(19): 4888-3272 (http://[email or web address]) Performed By: #### 1 0231A, 968T, A1C, 42A #### [facility] Default [address] [place] [address] Cholesterol.total/Ch olesterol in HDL [Mass ratio] 4.1 {ratio} Normal <5.0 [facility] [employer] Specialist Comment on above: Order Comment: [facility] Testing performed at: [employer], [facility], [address] , [address] [place] [address], [phone], [employer] Driver: Josep Amos MD [facility] Collection Date/Time: [facility] Results Received Date/Time: [facility] Reported Date/Time: Performed By: #### 1 0231A, 968T, A1C, 42A #### [facility] Default [address] [place] [address] NON HDL CHOLESTEROL 93 mg/dL (calc) Normal <130 [facility] [employer] Specialist Comment on above: Order Comment: [facility] Testing performed at: [facility], [facility], [address] [facility], [address] [place] [address], [phone], [employer] Driver: Josep Amos MD [facility] Collection Date/Time: [facility] Results Received Date/Time: [facility] Reported Date/Time: Result Comment: For patients with diabetes plus 1 major ASCVD risk factor, treating to a non-HDL-C goal of <100 mg/dL (LDL-C of <70 mg/dL) is considered a therapeutic option. Performed By: #### 1 0231A, 968T, A1C, 42A #### [facility] Default [address] [place] [address] Triglyceride [Mass/Vol] 89 mg/dL Normal <150 [facility] [employer] Specialist Comment on above: Order Comment: [facility] Testing performed at: [facility], [facility], [address] [place] [address], [address] [place] [address], [address] [place] [address], [employer] Driver: Josep Amos MD [facility] Collection Date/Time: [facility] Results Received Date/Time: [facility] Reported Date/Time: Performed By: #### 1 0231A, 968T, A1C, 42A #### [facility] Default [address] [place] [address] Vital Signs Date Time Vital Sign Value Performing Clinician Grant gant 05-27-2025 12:51-0400 Body height 190.5 cm Rosalva Mane ROD POINTER Work Phone: [facility] 05-27-2025 12:51-040 Body mass index (BMI) [Ratio] 31.5 kg/m2 Rosalva Mane ROD POINTER Work Phone: [facility] 05-27-2025 12:51-040 Body weight 114.31 kg Rosalva Mane ROD POINTER Work Phone: [facility] 05-27-2025 12:51-0400 Diastolic blood pressure 70 mm[Hg] Rosalva Mane ROD POINTER Work Phone: [facility] 05-27-2025 12:51-0400 Heart rate 78 /min Rosalva Mane ROD POINTER Work Phone: [facility] 05-27-2025 12:51-0400 Respiratory rate 18 /min Rosalva Mane ROD POINTER Work Phone: [facility] 05-27-2025 12:51-0400 SaO2% (BldA) [Mass fraction] 98 % Rosalva Mane ROD POINTER Work Phone: [facility] 05-27-2025 12:51-0400 Systolic blood pressure 126 mm[Hg] Rosalva Mane ROD POINTER Work Phone: [facility] 02-19-2025 13:44-0400 Body mass index (BMI) [Ratio] 33.5 kg/m2 Rosalva Mane ROD POINTER Work Phone: [facility] 02-19-2025 13:44-0400 Body temperature 97.5 [degF] Rosalva Hipatrick ROD POINTER Work Phone: [facility] 02-19-2025 13:44-0400 Body weight 121.56 kg Rosalva Hipatrick ROD POINTER Work Phone: [facility] 02-19-2025 13:44-0400 Diastolic blood pressure 44 mm[Hg] Rosalva Mane ROD POINTER Work Phone: [facility] 02-19-2025 13:44-0400 Heart rate 73 /min Rosalva Mane ROD POINTER Work Phone: [facility] 02-19-2025 13:44-0400 SaO2% (BldA) [Mass fraction] 93 % Rosalva Mane ROD POINTER Work Phone: [facility] 02-19-2025 13:44-0400 Systolic blood pressure 78 mm[Hg] Rosalva Mane ROD POINTER Work Phone: [facility] 11-13-2024 13:13-0500 Body mass index (BMI) [Ratio] 34.37 kg/m2 Rosalva Mane ROD POINTER Work Phone: [facility] 11-13-2024 13:13-0500 Body temperature 97.5 [degF] Rosalva Mane ROD POINTER Work Phone: [facility] 11-13-2024 13:13-0500 Body weight 124.74 kg Rosalva Mane ROD POINTER Work Phone: [facility] 11-13-2024 13:13-0500 Diastolic blood pressure 80 mm[Hg] Rosalva Mane ROD POINTER Work Phone: [facility] 11-13-2024 13:13-0500 Systolic blood pressure 136 mm[Hg] Rosalva Mane ROD POINTER Work Phone: [facility] 08-13-2024 13:54-0400 Body height 190.5 cm Rosalva Mane ROD POINTER Work Phone: [facility] 08-13-2024 13:54-0400 Body mass index (BMI) [Ratio] 35 kg/m2 Rosalva Mane ROD POINTER Work Phone: [facility] 08-13-2024 13:54-0400 Body weight 127.01 kg Rosalva Mane ROD POINTER Work Phone: [facility] 08-13-2024 13:54-0400 Diastolic blood pressure 72 mm[Hg] Rosalva Mane ROD POINTER Work Phone: [facility] 08-13-2024 13:54-0400 Heart rate 78 /min Rosalva Mane ROD POINTER Work Phone: [facility] 08-13-2024 13:54-0400 Respiratory rate 18 /min Rosalva Mane ROD POINTER Work Phone: [facility] 08-13-2024 13:54-0400 SaO2% (BldA) [Mass fraction] 99 % Rosalva Mane ROD POINTER Work Phone: [facility] 08-13-2024 13:54-0400 Systolic blood pressure 130 mm[Hg] Rosalva Mane ROD POINTER Work Phone: [facility] 12-09-2023 10:41-0500 Body height 190.5 cm Vidal Curry MD Work Phone: [facility] 12-09-2023 10:41-0500 Body mass index (BMI) [Ratio] 35.27 kg/m2 Vidal Curry MD Work Phone: [facility] [employer] [facility] 12-09-2023 10:41-0500 Body weight 128 kg Vidal Curry MD Work Phone: [facility] 12-09-2023 10:41-0500 Diastolic blood pressure 68 mm[Hg] Vidal Curry MD Work Phone: [facility] 12-09-2023 10:41-0500 Heart rate 69 /min Vidal Curry MD Work Phone: [facility] [employer] 12-09-2023 10:41-0500 SaO2% (BldA) [Mass fraction] 95 % Vidal Curry MD Work Phone: [facility] 12-09-2023 10:41-0500 Systolic blood pressure 126 mm[Hg] Vidal Curry MD Work Phone: [facility] Encounters Encounter Date Encounter Type Care Provider Facility Start: 05-27-2025 End: 05-27-2025 Bamboo flowsheet Rosalva Mane ROD POINTER Work Phone: [facility] Start: 05-27-2025 End: 05-27-2025 Bamboo flowsheet Rosalva Mane ROD POINTER Work Phone: [facility] Start: 05-27-2025 End: 05-27-2025 Patient encounter procedure Rosalva Mane ROD POINTER Work Phone: [facility] Comment on above: Encounter for annual wellness exam in Medicare patient (Primary Dx); Screening for deficiency anemia; Screening for prostate cancer; Bilateral artificial lens implant; Primary hypertension ; Mixed hyperlipidemia ; Morbid obesity due to excess calories ([facility]-HCC); Other chronic pain; PAD (peripheral artery disease); Polyneuropathy associated with underlying disease (HCC); Type 2 diabetes mellitus with diabetic neuropathy, without long-term current use of insulin ([facility]); Spinal stenosis of lumbar region with neurogenic claudication; Venous stasis dermatitis of both lower extremities; Psoriasis ; Degeneration of intervertebral disc of lumbar region, unspecified whether pain present; Primary osteoarthritis of knees, bilateral; Atopic dermatitis, unspecified type; Degeneration of iris (pigmentary), bilateral; Screening for colon cancer Start: 05-27-2025 End: 05-27-2025 ambulatory ROSALVA MANE Not Available Start: 02-19-2025 End: 02-19-2025 Emergency department patient visit ROSALVA MANE [facility] Start: 02-19-2025 End: 02-19-2025 Bamboo flowsheet Rosalva Mane ROD POINTER Work Phone: [facility] Start: 02-19-2025 End: 02-19-2025 Bamboo flowsheet Rosalva Mane ROD POINTER Work Phone: [facility] Start: 02-19-2025 End: 02-19-2025 Office outpatient visit 25 minutes Rosalva Mane ROD POINTER Work Phone: [facility] Comment on above: Primary hypertension (CMS/HCC) (Primary Dx); Type 2 diabetes mellitus with diabetic neuropathy, without long-term current use of insulin ([facility]); Hypotension, unspecified hypotension type; Irregular heart rate Start: 02-19-2025 End: 02-19-2025 ambulatory ROSALVA MANE Not Available Start: 11-21-2024 End: 11-21-2024 Orders Only Rosalva Mane ROD POINTER Work Phone: [facility] Comment on above: Type 2 diabetes zuleyma itus with diabetic neuropathy, without long-term current use of insulin (CMS/HCC) (Primary Dx) Start: 11-13-2024 End: 11-13-2024 Bamboo flowsheet Rosalva Mane ROD POINTER Work Phone: [facility] Start: 11-13-2024 End: 11-13-2024 Bamboo flowsheet Rosalva Mane ROD POINTER Work Phone: [facility] Start: 11-13-2024 End: 11-13-2024 Office outpatient visit 25 minutes Rosalva Mane ROD POINTER Work Phone: [facility] Comment on above: Primary hypertension (CMS/HCC) (Primary Dx); Type 2 diabetes mellitus with other skin ulcer (CODE) (CMS/HCC); 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 of skin (CMS/HCC); Type 2 diabetes mellitus with diabetic peripheral angiopathy without gangrene (CMS/HCC); Type 2 diabetes mellitus with diabetic neuropathy, unspecified (CMS/HCC); Morbid (severe) obesity due to excess calories (CMS/HCC); Mixed hyperlipidemia (CMS/HCC); Body mass index (BMI) 35.0-35.9, adult Start: 11-13-2024 End: 11-13-2024 ambulatory ROSALVA MANE Not Available Start: 10-29-2024 End: 10-29-2024 Refill Rosalva Mane ROD POINTER Work Phone: [facility] Comment on above: Type 2 diabetes zuleyma itus with hyperglycemia, without long-term current use of insulin (CMS/HCC) Start: 09-07-2024 End: 09-11-2024 Telephone encounter Matilde Trotter MA [facility] Start: 08-21-2024 End: 08-21-2024 Bamboo flowsheet Hellen Lora CONTROL SUPERVISOR-MISSILEMAN Work Phone: [facility] Start: 08-21-2024 End: 08-21-2024 Bamboo flowsheet Hellen Lora CONTROL SUPERVISOR-MISSILEMAN Work Phone: [facility] Start: 08-21-2024 End: 08-21-2024 Office outpatient visit 25 minutes Hellen Lora CONTROL SUPERVISOR-MISSILEMAN Work Phone: [facility] Comment on above: Psoriasis vulgaris ( CMS/HCC) (Primary Dx) Start: 08-21-2024 End: 08-21-2024 ambulatory HELLEN LORA Not Available Start: 08-14-2024 End: 08-14-2024 Refill Greta G Nicko DO Work Phone: [facility] Comment on above: Type 2 diabetes zuleyma itus with diabetic neuropathy, without long-term current use of insulin (CMS/HCC) Start: 08-13-2024 End: 08-13-2024 Bamboo flowsheet Rosalva Mane ROD POINTER Work Phone: [facility] Start: 08-13-2024 End: 08-13-2024 Bamboo flowsheet Rosalva Mane ROD POINTER Work Phone: [facility] Start: 08-13-2024 End: 08-13-2024 Office outpatient visit 25 minutes Rosalva Mane ROD POINTER Work Phone: [facility] Comment on [...] without long-term current use of insulin (CMS/HCC); Mixed hyperlipidemia (CMS/HCC) Start: 07-27-2024 End: 07-28-2024 Refill Greta G Nicko DO Work Phone: [facility] Comment on above: Venous stasis dermat itis of both lower extremities Start: 12-09-2023 End: 12-09-2023 Office consultation new/estab patient 40 min Vidal Curry MD Work Phone: [facility] Comment on above: Essential hypertensi on (Primary Dx) Start: 12-08-2023 Telephone encounter Cindy Peter CMA [facility] Start: 12-03-2023 Chart abstracting Scanning Pro vider External [facility] Start: 11-16-2023 Telephone encounter [facility] Comment on above: Appointment Start: 03-02-2023 End: 03-03-2023 ambulatory [facility] Facility:H1 Start: 11-24-2022 End: 11-25-2022 ambulatory [facility] Facility:H1 Start: 08-25-2022 End: 08-26-2022 ambulatory [facility] Facility:H1 Start: 05-19-2022 End: 05-20-2022 ambulatory [facility] Facility:H1 Procedures Date Procedure Procedure Detail Performing Clinician Start: 08-13-2024 Hemoglobin A1c/Hemoglobin.total in Blood Rosalva Mane NP Work Phone: Plan of Treatment Date Care Activity Detail Author Start: 05-27-2026 Medicare Annual Well ness (AWV) Medicare Annual Wellness (AWV) [facility] Start: 08-22-2025 End: 08-22-2025 Patient encounter procedure [facility] Start: 07-05-2025 Screening for malign ant neoplasm of colon [facility] Start: 06-25-2025 End: 06-25-2025 Patient encounter procedure 06/25/2025 2:00 PM EDT Office Visit [facility] [address] [place] [address] Rosalva Mane NP [address] [place] [address] [facility] Start: 06-24-2025 Influenza vaccination [facility] Start: 06-24-2025 Screening for malign ant neoplasm of colon [facility] Start: 05-27-2025 End: 05-27-2026 CBC W Auto Differential panel - Blood CBC and differential Lab Routine Screening for deficiency anemia Expected: 05/27/2025 (Approximate), Expires: 05/27/2026 [facility] Work Phone: Comment on above: Expected: 05/27/2025 (Approximate), Expires: 05/27/2026 Start: 05-27-2025 End: 05-27-2026 Comprehensive metabolic 2000 panel - Serum or Plasma Comprehensive metabolic panel Lab Routine Type 2 diabetes mellitus with diabetic neuropathy, without long-term current use of insulin (HCC) Expected: 05/27/2025 (Approximate), Expires: 05/27/2026 [facility] Comment on above: Expected: 05/27/2025 (Approximate), Expires: 05/27/2026 Start: 05-27-2025 End: 05-27-2026 Hemoglobin A1c/Hemoglobin.total in Blood Hemoglobin A1c Lab Routine Type 2 diabetes mellitus with diabetic neuropathy, without long-term current use of insulin (HCC) Expected: 05/27/2025 (Approximate), Expires: 05/27/2026 [facility] Comment on above: Expected: 05/27/2025 (Approximate), Expires: 05/27/2026 Start: 05-27-2025 End: 05-27-2026 Lipid 1996 panel - Serum or Plasma Lipid panel Lab Routine Mixed hyperlipidemia Expected: 05/27/2025 (Approximate), Expires: 05/27/2026 [facility] Comment on above: Expected: 05/27/2025 (Approximate), Expires: 05/27/2026 Start: 05-27-2025 End: 05-27-2026 Microalbumin/Creatinine panel in random Urine Microalbumin / creatinine, urine ratio Lab Routine Type 2 diabetes mellitus with diabetic neuropathy, without long-term current use of insulin (HCC) Expected: 05/27/2025 (Approximate), Expires: 05/27/2026 [facility] Comment on above: Expected: 05/27/2025 (Approximate), Expires: 05/27/2026 Start: 05-27-2025 End: 05-27-2026 Noninvasive colorectal cancer DNA and occult blood screening [Presence] in Stool Cologuard colon cancer screening Lab Routine Screening for colon cancer Expected: 05/27/2025 (Approximate), Expires: 05/27/2026 [facility] Comment on above: Expected: 05/27/2025 (Approximate), Expires: 05/27/2026 Start: 05-27-2025 End: 05-27-2026 Prostate specific Ag [Mass/volume] in Serum or Plasma PSA Lab Routine Screening for prostate cancer Expected: 05/27/2025 (Approximate), Expires: 05/27/2026 [facility] Comment on above: Expected: 05/27/2025 (Approximate), Expires: 05/27/2026 Start: 05-27-2025 End: 05-27-2025 Patient encounter procedure 05/27/2025 1:00 PM EDT Office Visit [facility] [address] [place] [address] Rosalva Mane NP [address] [place] [address] Arrived [facility] Comment on above: Arrived Start: 05-09-2025 Medicare Annual Well ness (AWV) Medicare Annual Wellness (AWV) [facility] Start: 05-09-2025 Urine screening for protein Diabetes: Urine Protein Screening [facility] Start: 04-22-2025 Influenza vaccination Influenza Vacc ine (#1) [facility] Comment on above: Postponed from 06/24 (Supply/Drug Shortage) Start: 02-19-2025 End: 02-19-2026 Comprehensive metabolic 2000 panel - Serum or Plasma Comprehensive metabolic panel Lab Routine Primary hypertension ([facility]/HCC) Type 2 diabetes mellitus with diabetic neuropathy, without long-term current use of insulin ([facility]) Expected: 02/19/2025 (Approximate), Expires: 02/19/2026 [facility] Work Phone: Comment on above: Expected: 02/19/2025 (Approximate), Expires: 02/19/2026 Start: 02-19-2025 End: 02-19-2026 Hemoglobin A1c/Hemoglobin.total in Blood Hemoglobin A1c Lab Routine Type 2 diabetes mellitus with diabetic neuropathy, without long-term current use of insulin ([facility]/HCC) Expected: 02/19/2025 (Approximate), Expires: 02/19/2026 [facility] Comment on above: Expected: 02/19/2025 (Approximate), Expires: 02/19/2026 Start: 02-19-2025 End: 02-19-2025 Patient encounter procedure 02/19/2025 2:00 PM EDT Office Visit [facility] [address] [place] [phone] Rosalva Mane, ROD POINTER [address] [facility] [place] [address] Arrived [facility] Comment on above: Arrived Start: 02-12-2025 End: 02-12-2025 Patient encounter procedure 02/12/2025 1:30 PM EDT Office Visit [facility] [address] [facility] [place] [phone] Rosalva Mane, ROD POINTER [address] [place] [address] [facility] Start: 02-11-2025 Hemoglobin A1c measurement Diabetes: Hemoglobin A1C [facility] Start: 02-06-2025 Pneumococcal Vaccine : 65+ Years (1 of 2 - PCV) Pneumococcal Vaccine: 65+ Years (1 of 2 - PCV) [facility] Comment on above: Postponed from 09/20 (Patient Refused) Start: 02-06-2025 Urine screening for protein Diabetes: Urine Protein Screening [facility] Start: 12-17-2024 Glaucoma screening Diabetes: R etinopathy Screening [facility] Comment on above: Postponed from 07/24 (Other Patient Reasons) Start: 12-09-2024 Adult BMI Screening Adult BMI Screen ing [facility] Start: 11-13-2024 End: 11-13-2025 Comprehensive metabolic 2000 panel - Serum or Plasma Comprehensive metabolic panel Lab Routine Type 2 diabetes mellitus with diabetic neuropathy, unspecified (CMS/HCC) Expected: 11/13/2024 (Approximate), Expires: 11/13/2025 [facility] Work Phone: Comment on above: Expected: 11/13/2024 (Approximate), Expires: 11/13/2025 Start: 11-13-2024 End: 11-13-2025 Hemoglobin A1c/Hemoglobin.total in Blood Hemoglobin A1c Lab Routine Type 2 diabetes mellitus with diabetic neuropathy, unspecified ([facility]) Expected: 11/13/2024 (Approximate), Expires: 11/13/2025 [facility] Comment on above: Expected: 11/13/2024 (Approximate), Expires: 11/13/2025 Start: 11-13-2024 End: 11-13-2024 Patient encounter procedure [facility] Comment on above: Arrived Start: 08-21-2024 End: 08-21-2024 Patient encounter procedure [facility] Comment on above: Arrived Start: 08-13-2024 End: 08-13-2024 Patient encounter procedure [facility] Comment on above: Arrived Start: 08-13-2024 End: 08-13-2025 XR Knee - left 4 Views [facility] Comment on above: Expected: 08/13/2024 , Expires: 08/13/2025 Start: 08-13-2024 End: 08-13-2025 XR Knee - right 4 Views [facility] Work Phone: Comment on above: Expected: 08/13/2024 , Expires: 08/13/2025 Start: 08-09-2024 Hemoglobin A1c measurement Diabetes: Hemoglobin A1C [facility] Start: 06-24-2024 Influenza vaccination Influenza Vacc ine (#1) [facility] Start: 12-09-2023 End: 12-09-2023 Patient encounter procedure 12/09/2023 11:00 AM EST [facility] [address] [place] [address] Vidal Curry MD [address] [place] [address] [facility] Start: 06-24-2023 COVID-19 Vaccine ( season) COVID-19 Vaccine ( season) [facility] Start: 06-24-2023 Influenza vaccination Influenza Vacc ine [facility] Start: 2022 Fall Risk Screening Fall Risk Screen ing [facility] Start: 07-24-2021 Glaucoma screening Diabetes: R etinopathy Screening [facility] Start: 2007 Administration of varicella zoster vaccine Zoster (Shingles) Vaccine (1 of 2) [facility] Start: 1976 DTaP,Tdap and Td Vaccines (1 - Tdap) DTaP,Tdap and Td Vaccines (1 - Tdap) [facility] Start: 1976 Pneumococcal Vaccine : 65+ Years (1 of 2 - PCV) Pneumococcal Vaccine: 65+ Years (1 of 2 - PCV) [facility] Start: 1975 Adult BMI Follow Up Plan Adult BMI F ollow Up Plan [facility] Start: 1975 Adult BMI Screening Adult BMI Screen ing [facility] Start: 1969 Depression Screening Depression Scre ening [facility] Start: 1969 Tobacco Screening Tobacco Screening [facility] Start: 1957 Medicare Annual Well ness Visit Medicare Annual Wellness Visit [facility] Start: 1957 Screening for malign ant neoplasm of colon [facility] Immunizations Immunization Date Immunization Notes Care Provider Fa cility 07-21-2011 influenza virus vaccine, whole virus Greta Nicko DO Work Phone: [facility] 07-21-2011 influenza virus vaccine, unspecified formulation Scanning External [facility] 08-05-2010 influenza virus vaccine, whole virus Greta Nicko DO Work Phone: [facility] 07-30-2009 influenza virus vaccine, whole virus Greta Nicko DO Work Phone: [facility] 08-09-2007 influenza virus vaccine, whole virus Greta Nicko DO Work Phone: [facility] Payers Date Payer Category Payer Medicaid [id number] 2022 Medicare [id number] 1957 Medicaid [id number] 1959 Medicare [id number] 1959 Unknown [id number] 1957 Unknown [id number] 2.16.84 [id number] 1957 Unknown [id number] 2.16.84 [id number] 1957 Unknown [id number] 2.16.84 [id number] 1957 Unknown [id number] 2.16.84 [id number] 1957 Unknown [id number] 2.16. [id number] 1957 Unknown [id number] 2.16.8 [id number] 1957 Unknown [id number] 2.16.84 [id number] 1957 Unknown [id number] 2.16.84 [id number] 1957 Unknown [id number] 2.16.84 [id number] 1957 Unknown [id number] 2.16.84 [id number] 1957 Unknown [id number] 2.16.84 [id number] 1957 Unknown [id number] 2.16.84 [id number] Social History Date Type Detail Facility Start: 03-28-2023 End: 12-03-2023 Tobacco smoking status NHIS Never smoked tobacco [facility] Start: 03-28-2023 End: 12-03-2023 Tobacco use and exposure Smokeless tobacco non-user [facility] Start: 05-09-2024 End: 05-27-2025 Alcoholic beverage intake Current drinker of alcohol (finding) [facility] Start: 03-29-2023 End: 05-27-2025 History of Social function [facility] Start: 03-29-2023 End: 05-27-2025 Humiliation, Afraid, Rape, and Kick questionnaire [HARK] [facility] Within the last year , have you been afraid of your partner or ex-partner? No [facility] Are you now , , , , never or living with a partner? Never [facility] How often to you hav e a drink containing alcohol? Monthly or less [facility] How many standard dr inks containing alcohol do you have on a typical day? 1 or 2 [facility] How often do you hav e 6 or more drinks on 1 occasion? Never [facility] How hard is it for y ou to pay for the very basics like food, housing, medical care, and heating Not hard at all [facility] Do you feel stress - tense, restless, nervous, or anxious, or unable to sleep at night because your mind is troubled all the time - these days [OSQ] Not at all [facility] (I/We) worried wheth er (my/our) food would run out before (I/we) got money to buy more. Never true [facility] Start: 02-07-2024 Alcohol Comment caffeine: 4 pops daily [facility] Start: 1955 Sex assigned at Not on file [facility] Start: 01-05-2023 Gender identity Identifies as male gender (finding) [facility] Tobacco smoking stat [facility] Tobacco smoking consumption unknown [facility] Equipment Procedure Code Equipment Code Equipment Origin al Text Equipment Identifier Dates [id number], [id number], [id number] Start: 10-12-2023 End: 10-29-2024 Functional Status Date Assessment Result Facility 05-27-2025 Patient Health Quest ionnaire 2 item (PHQ-2) [Reported] [facility] Clinical Notes 11-16-2023 to 05-27-2025 Rosalva Mane NP - 05/27/2025 1:00 PM Rober Mane NP - 02/19/2025 2:00 PM EDTChweslylarisa Mane, ROD POINTER - 11/21/2024 8:06 AM Geetalarisa Mane, ROD POINTER - 11/13/2024 1:30 PM EST Note Date & Type Note Facility 05-27-2025 History of Presen t illness Narrative Images from the original note were not included. Cornell Ritchie is a 69 y.o. male presents with chief complaint of Medicare Annual Wellness Visit Subsequent HPI: Over the past 2 weeks, how often have you been bothered by any of the following problems? Little interest or pleasure in doing things: Not at all Feeling down, depressed, or hopeless: Not at all Patient Health Questionnaire-2 Score: 0 Over the past 2 weeks, how often have you been bothered by any of the following problems? Trouble falling or staying asleep, or sleeping too much: More than half the days Feeling tired or having little energy: Not at all Poor appetite or overeating: Not at all Feeling bad about yourself - or that you are a failure or have let yourself or your family down: Not at all Trouble concentrating on things, such as reading the newspaper or watching television: Not at all Moving or speaking so slowly that other people could have noticed? Or the opposite - being so fidgety or restless that you have been moving around a lot more than usual.: Not at all Thoughts that you would be better off or hurting yourself in some way: Not at all Patient Health Questionnaire-9 Score: 2 [place] Fall Risk History of Falling, Immediate or Within 3 Months: No Health Risk Assessment Form Do you need help eating, bathing, using the toilet, dressing, or getting around your home?: No Can you prepare your own meals?: Yes Can you do your own housework without help?: Yes Can you shop for groceries or clothes without help?: Yes Do you exercise for about 20 minutes 3 or more days a week?: Yes How confident are you that you can control and manage most of your health problems?: Very confident Can you mange your money, credit cards and accounts, pay bills and taxes?: Yes Cognitive Screening Self Assessment: No overt cognitive deficiency is apparent by direct observation Three Word Registration: Banana, Crum, Chair Clock Drawing: Normal Clock - 2 Three Word Recall: All 3 words correct - 3 Total Score (0-5 Points): 5 Pain Assessment Pain Score: 7 SUBJECTIVE: MEDICATIONS: Current Outpatient Medications Medication Instructions ammonium lactate (Lac-Hydrin) 12 % lotion aspirin (ASPIR) 81 mg, Daily atorvastatin (LIPITOR) 20 mg, Oral, Daily Easy Touch Lancets 33G/Twist misc 1 each, Subcutaneous, Daily fluocinonide (Lidex) 0.05 % ointment Apply to affected areas bid prn furosemide (LASIX) 20 mg, Oral, Every morning gabapentin (NEURONTIN) 600 mg, Oral, 2 times daily glimepiride (Amaryl) 4 MG tablet TAKE 1 TABLET BY MOUTH EVERY MORNING AND BEFORE BEDTIME glucose blood (True Metrix Blood Glucose Test) test strip 1 each, Other, Daily before breakfast lisinopril-hydroCHLOROthiazide 20-12.5 MG tablet 1 tablet, Oral, Daily metFORMIN (GLUCOPHAGE) 850 mg, Oral, 2 times daily with meals triamcinolone (Kenalog) 0.1 % cream Topical, 2 times daily PRN, apply to trunk, arms, legs Trulicity 0.75 mg, Subcutaneous, Weekly Vtama 2 g, Apply externally, Daily I have reviewed and reconciled the history and medication list with the patient today. REVIEW OF SYMPTOMS: Review of Systems Constitutional: Negative for chills and fatigue. HENT: Negative for ear discharge, ear pain, rhinorrhea and sore throat. Eyes: Negative for pain and redness. Respiratory: Negative for cough and chest tightness. Cardiovascular: Negative for chest pain and palpitations. Gastrointestinal: Negative for abdominal distention and abdominal pain. Genitourinary: Negative for difficulty urinating and frequency. Musculoskeletal: Negative for arthralgias and gait problem. Skin: Negative. Neurological: Negative for dizziness and numbness. Endocrine: Negative. Allergic/Immunologic: Negative. OBJECTIVE: Visit Vitals BP 126/70 Pulse 78 Resp 18 Ht 6' 3 Wt 252 lb SpO2 98% BMI 31.50 kg/m Smoking Status Never BSA 2.46 m Physical Exam Vitals reviewed. Constitutional: Appearance: Normal appearance. HENT: Head: Normocephalic. Right Ear: Hearing and tympanic membrane normal. Left Ear: Hearing and tympanic membrane normal. Nose: Nose normal. Right Turbinates: Not enlarged. Left Turbinates: Not enlarged. Right Sinus: No maxillary sinus tenderness or frontal sinus tenderness. Left Sinus: No maxillary sinus tenderness or frontal sinus tenderness. Mouth/Throat: Lips: [place]. Mouth: Mucous membranes are moist. Pharynx: Oropharynx is clear. Uvula midline. Tonsils: No tonsillar exudate. Eyes: General: Lids are normal. Vision grossly intact. Gaze aligned appropriately. Extraocular Movements: Extraocular movements intact. Conjunctiva/sclera: Conjunctivae normal. Neck: Thyroid: No thyroid mass or thyromegaly. Vascular: No carotid bruit. Trachea: Trachea normal. Cardiovascular: Rate and Rhythm: Normal rate and regular rhythm. Pulses: Normal pulses. Heart sounds: Normal heart sounds. Pulmonary: Effort: Pulmonary effort is normal. Breath sounds: Normal breath sounds and air entry. Abdominal: General: Abdomen is flat. Bowel sounds are normal. Palpations: Abdomen is soft. Musculoskeletal: Cervical back: Full passive range of motion without pain, normal range of motion and neck supple. Lymphadenopathy: Cervical: No cervical adenopathy. Skin: General: Skin is warm. Capillary Refill: Capillary refill takes less than 2 seconds. Neurological: Mental Status: He is alert and oriented to person, place, and time. Sensory: Sensation is intact. Motor: Motor function is intact. Coordination: Coordination is intact. Psychiatric: Attention and Perception: Attention and perception normal. Mood and Affect: Mood and affect normal. Speech: Speech normal. Behavior: Behavior is cooperative. Thought Content: Thought content normal. ASSESSMENT AND PLAN: Assessment/Plan Diagnoses and all orders for this visit: Encounter for annual wellness exam in Medicare patient Wellness performed at today. Height, weight, BMI, problem list, and immunizations records reviewed. Dental care discussed with patient. Encouraged annual vision screenings and semi-annual dental care. Encouraged healthy eating habits, limit or eliminate junk food and sources of excess calories. Encouraged regular periods of exercise, 150 minutes of exercise weekly or amount appropriate to current level of function. Discussed family/friend/social support and importance of maintaining emotional connections. Follow up annually and as needed. Screening for deficiency anemia - CBC and differential; Future Screening for prostate cancer - PSA; Future Bilateral artificial lens implant-stable Primary hypertension -stable continue on current medications Mixed hyperlipidemia -stable continue on current medikcations. - Lipid panel; Future Morbid obesity due to excess calories (CMS-HCC) Other chronic pain PAD (peripheral artery disease) Polyneuropathy associated with underlying disease (HCC) Type 2 diabetes mellitus with diabetic neuropathy, without long-term current use of insulin (HCC)-patient stopped all diabetic medications and just recently restarted medications. - Comprehensive metabolic panel; Future - Hemoglobin A1c; Future - Microalbumin / creatinine, urine ratio; Future Spinal stenosis of lumbar region with neurogenic claudication Venous stasis dermatitis of both lower extremities-stable Psoriasis -stable Degeneration of intervertebral disc of lumbar region, unspecified whether pain present Primary osteoarthritis of knees, bilateral Atopic dermatitis, unspecified type Degeneration of iris (pigmentary), bilateral Screening for colon cancer - Cologuard colon cancer screening; Future documented in this encounter [facility] 02-19-2025 History of Presen t illness Narrative Images from the original note were not included. Cornell Ritchie is a 69 y.o. male presents with chief complaint of Diabetes HPI: HPI Patient is present for a DM follow up. Patient states he checks his blood sugars intermittently. Patient reports his blood sugars have been in the 160's-200's. His most recent reading was 182 today. He states he does try to follow a diabetic diet. Patient reports he has had some light headedness lately off and on. SUBJECTIVE: MEDICATIONS: Current Outpatient Medications Medication Instructions ammonium lactate (Lac-Hydrin) 12 % lotion aspirin (ASPIR) 81 mg, Daily atorvastatin (LIPITOR) 20 mg, Oral, Daily Easy Touch Lancets 33G/Twist misc 1 each, Subcutaneous, Daily fluocinonide (Lidex) 0.05 % ointment Apply to affected areas bid prn furosemide (LASIX) 20 mg, Oral, Every morning gabapentin (NEURONTIN) 600 mg, Oral, 2 times daily glimepiride (Amaryl) 4 MG tablet TAKE 1 TABLET BY MOUTH EVERY MORNING AND BEFORE BEDTIME glucose blood (True Metrix Blood Glucose Test) test strip 1 each, Other, Daily before breakfast lisinopril-hydroCHLOROthiazide 20-12.5 MG tablet 1 tablet, Oral, Daily metFORMIN (GLUCOPHAGE) 850 mg, Oral, 2 times daily with meals triamcinolone (Kenalog) 0.1 % cream Topical, 2 times daily PRN, apply to trunk, arms, legs Trulicity 0.75 mg, Subcutaneous, Weekly Vtama 2 g, Apply externally, Daily I have reviewed and reconciled the history and medication list with the patient today. REVIEW OF SYMPTOMS: Review of Systems Constitutional: Negative for fatigue. HENT: Negative. Respiratory: Negative. Negative for cough, shortness of breath and wheezing. Cardiovascular: Negative for chest pain and palpitations. Gastrointestinal: Negative. Genitourinary: Negative. Skin: Negative. Neurological: Negative. Psychiatric/Behavioral: Negative. OBJECTIVE: Visit Vitals Smoking Status Never Physical Exam Vitals and nursing note reviewed. Cardiovascular: Rate and Rhythm: Normal rate. Rhythm irregularly irregular. Pulses: Normal pulses. Heart sounds: Normal heart sounds. Comments: BP 88/44 Pulmonary: Effort: Pulmonary effort is normal. Breath sounds: Normal breath sounds. Abdominal: General: Abdomen is flat. Bowel sounds are normal. Palpations: Abdomen is soft. Musculoskeletal: General: Normal range of motion. Cervical back: Normal range of motion and neck supple. Right lower leg: Edema present. Left lower leg: Edema present. Skin: General: Skin is warm and dry. Neurological: General: No focal deficit present. Mental Status: He is oriented to person, place, and time. ASSESSMENT AND PLAN: Assessment/Plan Diagnoses and all orders for this visit: Primary hypertension (CMS/HCC)-patient is hypotensive - Comprehensive metabolic panel; Future Type 2 diabetes mellitus with diabetic neuropathy, without long-term current use of insulin (CMS/[facility]) - Comprehensive metabolic panel; Future - Hemoglobin A1c; Future Hypotension, unspecified hypotension type-transferred to ER per POV. Patient refused squad. Report given to ER physician. Irregular heart rate documented in this encounter [facility] 11-21-2024 History of Presen t illness Narrative Prescription sent documented in this encounter [facility] 11-13-2024 History of Presen t illness Narrative Images from the original note were not included. Cornell Ritchie is a 69 y.o. male presents with chief complaint of Diabetes HPI: HPI Patient is present for a DM follow up. Patient states he does check his blood sugars. Mostly recently they have been between 118-144. Patient states he follows a regular diet, but does try to watch his carbs. Patient needs a refill on his Lisinopril. SUBJECTIVE: MEDICATIONS: Current Outpatient Medications Medication Instructions ammonium lactate (Lac-Hydrin) 12 % lotion aspirin (ASPIR) 81 mg, Daily atorvastatin (LIPITOR) 20 mg, Oral, Daily Easy Touch Lancets 33G/Twist misc 1 each, Subcutaneous, Daily fluocinonide (Lidex) 0.05 % ointment Apply to affected areas bid prn furosemide (LASIX) 20 mg, Oral, Every morning gabapentin (NEURONTIN) 600 mg, Oral, 2 times daily glimepiride (Amaryl) 4 MG tablet TAKE 1 TABLET BY MOUTH EVERY MORNING AND BEFORE BEDTIME glucose blood (True Metrix Blood Glucose Test) test strip 1 each, Other, Daily before breakfast lisinopril-hydroCHLOROthiazide 20-12.5 MG tablet 1 tablet, Oral, Daily metFORMIN (GLUCOPHAGE) 850 mg, Oral, 2 times daily with meals triamcinolone (Kenalog) 0.1 % cream Topical, 2 times daily PRN, apply to trunk, arms, legs Vtama 2 g, Apply externally, Daily I have reviewed and reconciled the history and medication list with the patient today. REVIEW OF SYMPTOMS: Review of Systems Constitutional: Negative for fatigue. HENT: Negative. Respiratory: Negative. Negative for cough, shortness of breath and wheezing. Cardiovascular: Negative for chest pain and palpitations. Gastrointestinal: Negative. Genitourinary: Negative. Skin: Negative. Neurological: Negative. Psychiatric/Behavioral: Negative. OBJECTIVE: Visit Vitals Smoking Status Never Physical Exam Vitals and nursing note reviewed. Cardiovascular: Rate and Rhythm: Normal rate and regular rhythm. Pulses: Normal pulses. Heart sounds: Normal heart sounds. Pulmonary: Effort: Pulmonary effort is normal. Breath sounds: Normal breath sounds. Abdominal: General: Abdomen is flat. Bowel sounds are normal. Palpations: Abdomen is soft. Musculoskeletal: General: Normal range of motion. Cervical back: Normal range of motion and neck supple. Skin: General: Skin is warm and dry. Neurological: General: No focal deficit present. Mental Status: He is oriented to person, place, and time. ASSESSMENT AND PLAN: Assessment/Plan Diagnoses and all orders for this visit: Primary hypertension ([facility]/HCC)-stable continue on current medications - lisinopril-hydroCHLOROthiazide 20-12.5 MG tablet; Take 1 tablet by mouth Daily Type 2 diabetes mellitus with other skin ulcer (CODE) ([facility])-stable continue on current medications 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 of skin ([facility]) Type 2 diabetes mellitus with diabetic peripheral angiopathy without gangrene ([facility]) Type 2 diabetes mellitus with diabetic neuropathy, unspecified ([facility]) - Comprehensive metabolic panel; Future - Hemoglobin A1c; Future Morbid (severe) obesity due to excess calories ([facility]) Mixed hyperlipidemia ([facility]) Body mass index (BMI) 35.0-35.9, adult documented in this encounter [facility] 09-11-2024 Telephone encount er Note HE DECLINED [facility] 09-11-2024 Miscellaneous Notes Formattin g of this note might be different from the original. HE DECLINED Please see if patient has had an eye exam done this year? If not can he come into the office to have done this week? documented in this encounter [facility] 09-07-2024 Telephone encount er Note Please see if patient has had an eye exam done this year? If not can he come into the office to have done this week? [facility] 08-21-2024 History of Presen t illness Narrative [...] systemic treatment. Start Vtama cream. Sent to [place] at this time. Patient qualifies for PAP if needed. Patient to follow up if failing to improve on Vtama, otherwise can follow up in 1 year for refills. Tapinarof (Vtama) 1 % cream - Mid Back Apply 2 g topically Daily Related Medications fluocinonide (Lidex) 0.05 % ointment Apply to affected areas bid prn Next Visit: 1 year documented in this encounter [facility] 08-13-2024 History of Presen t illness Narrative [...] History: Procedure Laterality Date CATARACT EXTRACTION 2012 [facility] 05/2019 neg repeat 2020 EXTERNAL EAR SURGERY [...] follow-ups on file. documented in this encounter [facility] 12-09-2023 History of Presen t illness Narrative [...] Chief Complaint Patient presents with New Patient ROD POINTER HTN, IRREG HR SCHED W/ PTEKG, LABS [...] Past Medical History: Diagnosis Date Diabetes mellitus ([facility]) Hyperlipidemia Hypertension PAD (peripheral artery disease) ([facility]) No data recorded No data recorded No [...] FOLLOW UP No follow-ups on file. PCP: Scar Handy MD Referring Physician: Greta Maharaj DO [address] [place] [address] [facility]-08[facility]2023 Miscellaneous Notes Formattin g of this note might be different from the original. Left message for patient to remind them to bring their most current medication list with them to their appointment. documented in this encounter [facility] 12-08-2023 Telephone encount er Note Left message for patient to remind them to bring their most current medication list with them to their appointment. [facility] 11-16-2023 Miscellaneous Notes Formattin g of [...] the patient to call and schedule their ROD POINTER appointment with [facility]. Phoned roopa pruitt on to contact office to schedule appt for ROD POINTER referral documented in this encounter [facility] 11-16-2023 Telephone encount er Note This is notification that we have received a referral for the patient. Please reach out to schedule new patient appointment in your office. Please check the referral tab in appt desk for details and to make sure to assign referral or schedule off of it. Thank you. [facility] 11-16-2023 Telephone encount er Note LMOM for the patient to call and schedule their ROD POINTER appointment with [facility]. [facility] 11-16-2023 Telephone encount er Note Phoned roopa pruitt on to contact office to schedule appt for ROD POINTER referral [facility] Evaluation note Diagnosis Venous stasis dermatitis of both lower extremities [facility] Diagnosis Type 2 diabetes mellitus with diabetic neuropathy, without long-term current use of insulin (CMS/HCC) Mixed hyperlipidemia (CMS/HCC) Mixed hyperlipidemia documented in this encounter [facility]* Diagnosis Acute pain of right knee- Primary Type 2 diabetes mellitus with diabetic neuropathy, without long-term current use of insulin (CMS/HCC) Acute pain of left knee Primary hypertension (CMS/[facility]) Unspecified essential hypertension documented in this encounter [facility]* Diagnosis Type 2 diabetes mellitus with diabetic neuropathy, without long-term current use of insulin (CMS/HCC) documented in this encounter [facility]* Diagnosis Psoriasis vulgaris (CMS/HCC)- Primary Other psoriasis documented in this encounter [facility]* Diagnosis Type 2 diabetes mellitus with hyperglycemia, without long-term current use of insulin (CMS/HCC) documented in this encounter [facility]* Diagnosis Primary hypertension (CMS/HCC)- Primary Unspecified essential hypertension Type 2 diabetes mellitus with other skin ulcer (CODE) (CMS/[facility]) 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 of skin (CMS/HCC) Type 2 diabetes mellitus with diabetic peripheral angiopathy without gangrene (CMS/HCC) Type 2 diabetes mellitus with diabetic neuropathy, unspecified (CMS/HCC) Morbid (severe) obesity due to excess calories (CMS/HCC) Mixed hyperlipidemia (CMS/HCC) Mixed hyperlipidemia Body mass index (BMI) 35.0-35.9, adult documented in this encounter [facility]* Diagnosis Type 2 diabetes mellitus with diabetic neuropathy, without long-term current use of insulin (CMS/HCC)- Primary documented in this encounter [facility]* Diagnosis Essential hypertension- Primary Unspecified essential hypertension documented in this encounter [facility]* Diagnosis Primary hypertension (CMS/HCC)- Primary Unspecified essential hypertension Type 2 diabetes mellitus with diabetic neuropathy, without long-term current use of insulin (CMS/HCC) Hypotension, unspecified hypotension type Irregular heart rate documented in this encounter [facility]* Diagnosis Encounter for annual wellness exam in Medicare patient- Primary Screening for deficiency anemia Screening for other and unspecified deficiency anemia Screening for prostate cancer Special screening for malignant neoplasm of prostate Bilateral artificial lens implant Primary hypertension Unspecified essential hypertension Mixed hyperlipidemia Mixed hyperlipidemia Morbid obesity due to excess calories ([facility]) Other chronic pain PAD (peripheral artery disease) Unspecified peripheral vascular disease Polyneuropathy associated with underlying disease (HCC) Type 2 diabetes mellitus with diabetic neuropathy, without long-term current use of insulin ([facility]) Spinal stenosis of lumbar region with neurogenic claudication Venous stasis dermatitis of both lower extremities Psoriasis Other psoriasis Degeneration of intervertebral disc of lumbar region, unspecified whether pain present Primary osteoarthritis of knees, bilateral Atopic dermatitis, unspecified type Degeneration of iris (pigmentary), bilateral Screening for colon cancer Special screening for malignant neoplasms, colon documented in this encounter [facility]ructionsNot on filedocumented in this encounter[facility] SystemInstructionsNot on filedocumented in this encounterProBrown [facility] SystemInstructionsNot on filedocumented in this encounterProBrown Memorial Hospital SystemInstructionsNot on filedocumented in this [facility] Summary Purpose Family History No Family [...] section and content) DATE CREATED AUTHOR 02/06/[address] [facility] dical Specialist DATE CREATED AUTHOR AUTHOR'S ORGANIZ ATION 03/03/2023 [facility] DATE CREATED AUTHOR AUTHOR'S ORGANIZ ATION 02/21/2025 [facility] DATE CREATED AUTHOR AUTHOR'S ORGANIZ ATION 05/29/[address] 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 HTN, IRREG HR YANETH ED W/ PTEKG, LABS AT PCP Specialty Diagnoses / Procedures Referred By Contac t Referred To Contact Cardiology Diagnoses Type 2 diabetes mellitus with hyperglycemia, without long-term current use of insulin ([facility]) Primary hypertension Mixed hyperlipidemia Type 2 diabetes mellitus with diabetic neuropathy, without long-term current use of insulin (CMS-HCC) Irregularly irregular cardiac rhythm Procedures [place] OFFICE OUTPATIENT VISIT 60-74 MINS HIGH MDM AMB REFERRAL TO CARDIOLOGY AMB REFERRAL TO CARDIOLOGY Greta Maharaj DO [address] [place] [address] Ronny Lazar MD [address] [place] [address] Referral ID Status Reason Start Date Expiration Date V isits Requested Visits Authorized [id number] Pending Review 11/08/2023 05/06/2024 1 1 Reason Comments Medicare Annual Wellness Visit [facility] Care Teams (unrecognized sec tion and content) Drum Builder Relationship Specialty Start Date End Date Greta Maharaj DO [address] [place] [address] PCP - ACO Reach 12/23/23 Cindy Reyes MD [address] [facility] [place] [address] PCP - General Family Medicine 07/27/24 Rosalva Mane NP [address] [facility] [place] [address] Nurse Practitioner Family Medicine 07/27/24 Drum Builder Relationship Specialty Start Date End Date Greta Maharaj DO [address] [facility] [place] [address] PCP - ACO Reach 12/23/23 Cindy Reyes MD [address] [facility] [place] [address] PCP - General Family Medicine 07/27/24 Rosalva Mane NP [address] [place] [address] Nurse Practitioner Family Medicine 07/27/24 Drum Builder Relationship Specialty Start Date End Date Greta Maharaj DO [address] [place] [address] PCP - ACO Reach 12/23/23 Cindy Reyes MD [address] [place] [address] PCP - General Family Medicine 07/27/24 Rosalva Mane NP [address] [place] [address] Nurse Practitioner Family Medicine 07/27/24 Drum Builder Relationship Specialty Start Date End Date Greta Maharaj DO [address] [place] [address] PCP - ACO Reach 12/23/23 Cindy Reyes MD [address] [place] [address] PCP - General Family Medicine 07/27/24 Rosalva Mane NP [address] [place] [address] Nurse Practitioner Family Medicine 07/27/24 Drum Builder Relationship Specialty Start Date End Date Greta Maharaj DO [address] [place] [address] PCP - ACO Reach 12/23/23 Cindy Reyes MD [address] [place] [address] PCP - General Family Medicine 07/27/24 Rosalva Mane NP [address] [place] [address] Nurse Practitioner Family Medicine 07/27/24 Drum Builder Relationship Specialty Start Date End Date Greta Maharaj DO [address] [place] [address] PCP - ACO Reach 12/23/23 Cindy Reyes MD [address] [place] [address] PCP - General Family Medicine 07/27/24 Rosalva Mane NP [address] [place] [address] Nurse Practitioner Family Medicine 07/27/24 Drum Builder Relationship Specialty Start Date End Date Nicko Greta GDO [address] [place] [address] PCP - ACO Reach 12/23/23 Cindy Reyes MD [address] [place] [address] PCP - General Family Medicine 07/27/24 Rosalva Mane NP [address] [place] [address] Nurse Practitioner Family Medicine 07/27/24 Drum Builder Relationship Specialty Start Date End Date Nicko Greta G, [address] [place] [address] PCP - ACO Reach 12/23/23 Cindy Reyes MD [address] [place] [address] PCP - General Family Medicine 07/27/24 Rosalva Mane, ROD POINTER [address] [place] [address] Nurse Practitioner Family Medicine 07/27/24 Drum Builder Relationship Specialty Start Date End Date Scar Handy MD [address] [place] [address] PCP - General Family Medicine 04/08/17 Drum Builder Relationship Specialty Start Date End Date Scar Handy MD [address] [place] [address] PCP - General Family Medicine 04/08/17 Drum Builder Relationship Specialty Start Date End Date Scar Handy MD [address] [place] [address] PCP - General Family Medicine 04/08/17 Drum Builder Relationship Specialty Start Date End Date Scar Handy MD [address] [place] [address] PCP - General Family Medicine 04/08/17 Drum Builder Relationship Specialty Start Date End Date Cindy Reyes MD [address] [place] [address] PCP - General Family Medicine 07/27/24 Rosalva Mane, ROD POINTER [address] [place] [address] Nurse Practitioner Family Medicine 07/27/24 Drum Builder Relationship Specialty Start Date End Date Cindy Reyes MD [address] [facility] [place] [address] PCP - General Family Medicine 07/27/24 Rosalva Mane NP [address] [place] [address] Nurse Practitioner Family Medicine 07/27/24 Drum Builder Relationship Specialty Start Date End Date Cindy Reyes MD [address] [place] [address] PCP - General Family Medicine 07/27/24 Rosalva Mane NP [address] [facility] [place] [address] Nurse Practitioner Family Medicine 07/27/24 FOR RECORDS [...] BE BASED ON THE PRIMARY CLINICAL RECORDS. [employer] [facility]. provides no warranty or guarantee of the accuracy or completeness of information in this document.
--- NOTE | 2025-06-13 13:48 | P.WCHP_ITS ---
Wound Care H&P: HPI History of Present Illness Narrative: The patient is a pleasant 69-year-old gentleman with history of type 2 diabetes who presents for routine nail care. The patient has no complaints of pain in his feet and has no wounds at this time. Exam 2 Narrative: Exam Narrative: Derm: Toenails 1 through 10 are thickened, elongated, mycotic, and painful.? No evidence of paronychia.? Skin is diffusely dry, thin, and atrophic. Hemosiderin staining present on the lower legs bilaterally. Vascular: DP and PT pulses are nonpalpable on the right.? DP pulse is 1/4 on the left and PT pulse is nonpalpable on the left. Capillary refill is less than 3 seconds to all toes. Digital hair is absent bilaterally. Neuro: Vibratory sensation is absent bilaterally.? Achilles deep tendon reflex is 1+ bilaterally.? Protective sensation was tested with a monofilament and is present in 1/5 areas tested on the right and 0/5 areas tested on the left.? Musculoskeletal: No gross deformity. Strength 5/5 in all planes bilaterally Assessment and Plan Assessment and Plan (1) Tinea unguium: (2) Diminished pulses in lower extremity: (3) Type 2 diabetes mellitus with diabetic neuropathy, unspecified: Plan Routine nail care performed. Follow-up in 3 months. Acute Procedures Podiatry Nail Debridement Class B Findings Absent posterior tibial pulse: right Advanced trophic changes as evidenced by any three of the following: decreased hair growth, nail changes (thickening), pigmentary changes (discoloring) and skin texture (thin or shiny) Absent dorsalis pedis pulse: right Class C Findings Claudication: No Temperature changes: No Edema: Yes Nail debridement paresthesia (abnormal spontaneous sensations in the feet): No Burning: No Qualifies If: Qualifiers If:: A patient qualifies for nail debridement if they have: 1 class A finding (Q7) 2 class B findings (Q8) OR 1 class B & 2 class C findings in addition to a primary condition (Q9) Nail Procedure Nail Procedure Time out: Yes Nail procedure: other (Toenail debridement) Number of affected nails: 10 Location (toes): left and right Procedure successful: Yes Patient tolerated procedure: well and no complications Additional comments: Sharp debridement of toenails 1 through 10 with nail nippers. Procedure performed without incident and to the patient's satisfaction.
== END 2025-06-13 13:11 | disposition home or self-care (01) ==
LOC: WC 13:13
PROVIDERS: Visit Provider Physician Assistant
DX: B35.1 Tinea unguium (principal); R09.89 Other specified symptoms and signs involving the circulatory and respiratory systems; E11.40 Type 2 diabetes mellitus with diabetic neuropathy, unspecified
CPT/HCPCS: 11721

== ENCOUNTER 2025-09-12 13:25 | Outpatient (OUT) | payer MEDICARE, SELFPAY ==
--- OUTSIDE RECORDS SUMMARY | 2025-09-12 13:32 | XMS_ITS | CCD ---
Author Organization [facility] Care Team Providers Care Chimney Repairer Name Role Phone RICHY OWENS Attending Unavailable [...] Cindy Reyes MD Primary Care Provider Antonietta GIORDANO, Rosalva Richards Unavailable Scar Handy MD Primary Care Provider ROSALVA MANE Primary Care Unavailab HELLEN Nicole Attending Unavailable ANTONIETTA, ROSALVA Richards Attending Unavailab le ROSALVA MANE Attending Unavailab le ROSALVA MANE Attending Unavailab le ROSALVA MANE Attending Unavailab le Medications Current Medications MedicationDrug Class(es)DatesSig (Normalized)Sig (Original)aspirin 81 mg delayed release oral tablet (20 sources)Platelet Aggregation Inhibitor, Nonsteroidal Anti-inflammatory Drug take 1 tablet by mouth once dailyaspirin (ASPIR) 81 MG EC tablet Take 81 mg by mouth Daily Activeatorvastatin 20 mg oral tablet (20 sources)HMG-CoA Reductase InhibitorStart: 15-98-0280mwui 1 tablet by mouth once dailyatorvastatin (Lipitor) 20 MG tablet Indications: Mixed hyperlipidemia Take 1 tablet (20 mg) by mouth Daily 90 tablet 1 04/24/2025 ActiveStart: 02-07-2024 End: 09-75-5907ohlb 1 tablet by mouth once dailyatorvastatin (Lipitor) 20 MG tablet Indications: Mixed hyperlipidemia (CMS/HCC) Take 1 tablet (20 mg) by mouth Daily 90 tablet 1 08/13/2024 Activetake 1 tablet by mouth in the morning atorvastatin (LIPITOR) 20 mg tablet Take 1 tablet (20 mg total) by mouth in the morning. 0 Active0.5 ml dulaglutide 1.5 mg/ml auto-injector (15 sources)GLP-1 Receptor AgonistStart: 60-52-8499tefzqk 0.75 mg by subcutaneous injection every weekDulaglutide (Trulicity) 0.75 MG/0.5ML solution auto-injector Indications: Type 2 diabetes mellitus with diabetic neuropathy, without long-term current use of insulin (HCC) Inject 0.75 mg under the skin 1 (one) time per week 0.5 mL 1 11/21/2024 Activefluocinonide 0.0005 mg/mg topical ointment (20 sources)CorticosteroidStart: 98-15-5750lsipujzfvgpp (Lidex) 0.05 % ointment Indications: Psoriasis vulgaris Apply to affected areas bid prn 60 g 11 08/11/2023 Activefurosemide 20 mg oral tablet (20 sources)Loop DiureticStart: 33-38-6530jzgb 1 tablet by mouth once daily in the morningfurosemide (Lasix) 20 MG tablet Indications: Venous stasis dermatitis of both lower extremities TAKE ONE TABLET BY MOUTH EVERY MORNING 90 tablet 3 07/28/2024 Activetake 1 tablet by mouth once dailyfurosemide (LASIX) 20 mg tablet Take 1 tablet (20 mg total) by mouth daily. 0 Activegabapentin 600 mg oral tablet (20 sources)Anti-epileptic AgentStart: 05-09-2024 End: 89-15-3138iros 1 tablet by mouth in the morninggabapentin (Neurontin) 600 MG tablet Indications: Polyneuropathy associated with underlying disease(HCC) Take 1 tablet (600 mg) by mouth in the morning and 1 tablet (600 mg) before bedtime. 180 tablet 08/01/2025 10/30/2025 Activetake 1 tablet by mouth in the morning, then take 1 tablet by mouth at bedtimegabapentin (NEURONTIN) 600 mg tablet Take 1 tablet (600 mg total) by mouth in the morning and 1 tablet (600 mg total) before bedtime. 0 Activeglimepiride 4 mg oral tablet (20 sources)SulfonylureaStart: 11-15-2023 End: 86-05-5172jcdt 1 tablet by mouth in the morningglimepiride (Amaryl) 4 MG tablet Indications: Type 2 diabetes mellitus with diabetic neuropathy, without long-term current use of insulin (HCC) Take 1 tablet (4 mg) by mouth in the morning and 1 tablet (4 mg) before bedtime. 180 tablet 2 08/14/2025 Active hydroCHLOROthiazide 12.5 mg / lisinopril 20 mg oral tablet (20 sources)Thiazide Diuretic, Angiotensin Converting Enzyme InhibitorStart: 11-13-2024 End: 91-67-2299tltk 1 tablet by mouth once dailylisinopril-hydroCHLOROthiazide 20-12.5 MG tablet Indications: Primary hypertension Take 1 tablet bymouth Daily 100 tablet 3 11/13/2024 11/13/2025 ActiveStart: 10-12-2023 End: 69-99-0401cibr 1 tablet by mouth in the morninglisinopril- hydroCHLOROthiazide 20-12.5 MG tablet Indications: Primary hypertension (CMS/HCC) Take 1tablet by mouth in the morning. 100 tablet 3 10/12/2023 11/13/2024 Discontinued (Reorder)take 1 tablet by mouth once in the morning lisinopril-hydroCHLOROthiazide (PRINZIDE,ZESTORETIC) 20-12.5 mg per tablet Take 1 tablet by mouth in the morning. 0 Activeammonium lactate 120 mg/ml topical lotion (20 sources)Start: 07-58-6090waitggze lactate (Lac-Hydrin) 12 % lotion 02/01/2024 ActivemetFORMIN hydrochloride 850 mg oral tablet (20 sources)BiguanideStart: 85-54-4560vayu 1 tablet by mouth in the morning metFORMIN (Glucophage) 850 MG tablet Indications: Type 2 diabetes mellitus with diabetic neuropathy, without long-term current use of insulin (HCC) Take 1 tablet (850 mg) by mouth in the morning and 1 tablet (850 mg) in the evening. Take with meals. 180 tablet 3 04/24/2025 ActiveStart: 26-98-2384ngdj 1 tablet by mouth in the morningmetFORMIN (Glucophage) 850 MG tablet Indications: Type 2 diabetes mellitus with diabetic neuropathy, without long-term current use of insulin (CMS/HCC) Take 1 tablet (850 mg) by mouth in the morning and 1 tablet (850 mg) in the evening. Take with meals. 180 tablet 3 02/07/2024 Activetake 1 tablet by mouth in the morning, then take 1 tablet by mouth at mealtimemetFORMIN (GLUCOPHAGE) 850 mg tablet Take 1 tablet (850 mg total) by mouth in the morning and 1 tablet (850 mg total) in the evening. Take with meals. 0 ActiveTapinarof (Vtama) 1 % cream (20 sources)Start: 08-22-2025 End: 28-58-1328Sqedenzyj (Vtama) 1 % cream Indications: Psoriasis vulgaris Apply 2 g topically Daily To the arms, legs, and back when flared. Hold when clear. 30 days 60 g 11 08/22/2025 09/21/2025 ActiveStart: 08-21-2024 End: 25-50-1743Xodotfzip (Vtama) 1 % cream Indications: Psoriasis vulgaris Apply 2 g topically Daily 60 g 11 08/21/2024 08/22/2025 DiscontinuedStart: 08-21-2024 Tapinarof (Vtama) 1 % cream Indications: Psoriasis vulgaris Apply 2 g topically Daily 60 g 11 08/21/2024 ActiveStart: 71-52-3218Feibgvebb (Vtama) 1 % cream Indications: Psoriasis vulgaris (CMS/HCC) Apply 2 g topically Daily 60 g 11 08/21/2024 Activetriamcinolone acetonide 1 mg/ml topical cream (20 sources)CorticosteroidStart: 58-25-4331otwhmhvxmzgeq (Kenalog) 0.1 % cream Indications: Other atopic dermatitis Apply topically 2 (two) times a day as needed for rash (use when flared, hold when clear). apply to trunk, arms, legs 454 g 05/09/2023 Active Problems Active Problems Problem ClassificationProblemDateDocumented DateEpisodic/ChronicAllergic reactions (20 sources)Atopic dermatitis; Translations: [Atopic dermatitis, unspecified] Onset: 422180-60-7121NyjyobsKdzgkfp dysrhythmias (2 sources)Irregular heart beat; Translations: [Cardiac arrhythmia, unspecified] 23-55-1185LajgaxqQwdyyxag (20 sources)Unspecified cataract; Translations: [Artificial lens present]Onset: 489228-29-5531OrwfkmfTbroprcd mellitus with complications (20 sources)Type 2 diabetes mellitus with diabetic neuropathy, unspecified; Translations: [Type 2 diabetes mellitus with hyperglycemia]Onset: 05-28-2022 ChronicDisorders of lipid metabolism (20 sources)Mixed hyperlipidemia; Translations: [Mixed hyperlipidemia]Onset: 238959-94-8052GvrcibfVooywshtd hypertension (20 sources)Essential hypertension; Translations: [Essential (primary) hypertension]Onset: 025814-39-1172AsqnxfgSbcnyjhmonowkx (20 sources)Primary gonarthrosis, bilateral; Translations: [Bilateral primary osteoarthritis of knee]Onset: 529108-54-1490XiiavxzFmtmf circulatory disease (4 sources)Low blood pressure; Translations: [Hypotension, unspecified]Onset: 269047-95-0003LnhjdbmmDxbgf diseases of veins and lymphatics (1 source)Lymphedema, not elsewhere classified; Translations: [LYMPHEDEMA NOT ELSEWHERE CLASSIFIED]Onset: 20-96-5179HzaavacUnsjc inflammatory condition of skin (20 sources)Psoriasis; Translations: [Psoriasis, unspecified]Onset: 02-28-2023 75-66-8487WaruxmyErxyy inflammatory condition of skin (3 sources)Psoriasis vulgaris; Translations: [Psoriasis vulgaris]08-21-2024 ChronicOther nervous system disorders (20 sources)Chronic pain; Translations: [Other chronic pain]Onset: 02-28-2023 54-09-8916MdgqycaEtabg nervous system disorders (20 sources)Polyneuropathy associated with another disorder; Translations: [Polyneuropathy in diseases classified elsewhere]Onset: ChronicOther non-traumatic joint disorders (4 sources)Pain in right knee; Translations: [Pain in joint, lower leg] 53-36-2498YxorgejlKikrs nutritional; endocrine; and metabolic disorders (1 source)Morbid (severe) obesity due to excess calories; Translations: [MORBID SEVERE OBES D/T EXCESS ARMANDO]Onset: 91-24-1624KyxicpgFfavq nutritional; endocrine; and metabolic disorders (20 sources)Morbid obesity; Translations: [Morbid (severe) obesity due to excess calories]Onset: 242806-80-2886IzifnrcFkybx nutritional; endocrine; and metabolic disorders (2 sources)Obesity caused by energy imbalance; Translations: [Morbid (severe) obesity due to excess calories]86-21-2474KwjmvvaTvkgf nutritional; endocrine; and metabolic disorders (2 sources)Body mass index 30+ - obesity; Translations: [Body mass index (BMI) 35.0-35.9, adult]44-90-6431AbivcsiJigpw screening for suspected conditions (not mental disorders or infectious disease) (7 sources)Encounter for screening, unspecified; Translations: [Patient encounter status]Onset: 989916-89-1358HdrmukuwLikbjusgth and visceral atherosclerosis (20 sources)Peripheral vascular disease, unspecified; Translations: [Peripheral vascular disease, unspecified]Onset: 291005-03-8347YbwywdsRsvbyafavax; intervertebral disc disorders; other back problems (20 sources)Degeneration of lumbar intervertebral disc; Translations: [Lumbar degenerative disc disease]Onset: hronic Past or Other Problems Problem ClassificationProblemDateDocumented DateEpisodic/ChronicChronic ulcer of skin (20 sources)Superficial skin ulcer of lower limb; Translations: [Non-pressure chronic ulcer of unspecified partof right lower leg limited to breakdown of skin]Onset: 02-28-2023 Resolved: 952496-18-3659AtgjftkViji disorders (11 sources)Mood disorders; Translations: [DEPRESSION UNSPECIFIED]Onset: 984626-71-2188Igntyyr (1 source)Tinea unguium; Translations: [TINEA UNGUIUM]Onset: 78-97-9943Fwzuxush Other diseases of veins and lymphatics (1 source)Venous insufficiency (chronic) (peripheral); Translations: [VENOUS INSUFF CHRONIC PERIPHERAL]Onset: 42-56-1519PhpgirbbXvnoa diseases of veins and lymphatics (20 sources)Disorder of vein of lower extremity; Translations: [Venous insufficiency (chronic) (peripheral)]Onset: 855365-66-2373ImuciinpXvubi eye disorders (20 sources)Pigment dispersion syndrome of bilateral eyes; Translations: [Degeneration of iris (pigmentary), bilateral]Onset: 977909-02-3517 EpisodicOther skin disorders (5 sources)Corns and callosities; Translations: [CORNS AND CALLOSITIES]Onset: 70-77-4803VebqxdenQozuc skin disorders (1 source)Nail dystrophy; Translations: [NAIL DYSTROPHY]Onset: 11-30-2022 EpisodicOther skin disorders (1 source)Onycholysis; Translations: [ONYCHOLYSIS]Onset: 23-10-5532Kdnemcqw Residual codes; unclassified (1 source)Localized edema; Translations: [LOCALIZED EDEMA]Onset: 11-30-2022 EpisodicSpondylosis; intervertebral disc disorders; other back problems (20 sources)Sciatica, unspecified side; Translations: [Spinal stenosis of lumbar region]Onset: 892361-96-2266Cvktbmdt Results Test NameValueInterpretationReference BadbxFvwoljdlGsY9e (Bld) [Mass fraction]on 34-16-0096Cnophlzruaeboz and review of laboratory resultsAbnoConway Medical Center HealthcareLaboratory - Hematology and Cell countson 64-94-5744QpN6k (Bld) [Mass fraction]7.5 %[facility] HospitalHemoglobin A1Con 54-77-9976XJKFXTBZNL A1c7.0 % of total HgbHigh<5.7[facility] SpecialistComment on above:Order Comment: [facility] Testing performed at: Q[facility], [facility], [address] [place] [address], [address] [place] [address], [id number], Collections Clerk: Josep Amos MD [facility] Collection Date/Time: [facility] Results Received Date/Time: [facility] Reported Date/Time: [id number] Comment: For someone without known diabetes, a [...] hemoglobin A1c for diagnosis of diabetes for children.Performed By: #### [id number], 968T, A1C, 42A #### [facility] Default [address] [place], [place] [address]S - CBC W/DIFF AND PLTon 28-83-6702MXRJQWA23 cells/uLNormal0-200 [facility] SpecialistComment on above:Order Comment: [facility] performed at: [employer], [employer] [facility], [address] [place] [address], [address] [place] [address], [address] [place] [address], Collections Clerk: Josep Amos MD [facility] Date/Time: [facility] Results Received Date/Time: [facility] Reported Date/Time: [id number] By: #### [id number], 968T, A1C, 42A #### [facility] Default [address] [place], [place] [address]Sinryvrdl/100 WBC (Bld)0.7 %[facility] SpecialistComment on above:Order Comment: [facility] performed at: [employer], [employer] [facility], [address] [place] [address], [address] [place] [address], [address] [place] [address], Collections Clerk: Josep Amos MD [facility] Date/Time: [facility] Results Received Date/Time: [facility] Reported Date/Time: [id number] By: #### [id number], 968T, A1C, 42A #### [facility] Default [address] [place], [place] [address]VWOQQB939 cells/mIGgztys81-215Zxlnacio [employer] Comment on above:Order Comment: [facility] performed at: [employer], [employer] [facility], [address] [place] [address], [address] [place] [address], [address] [place] [address], Collections Clerk: Josep Amos MD [facility] Date/Time: [facility] Results Received Date/Time: [facility] Reported Date/Time: [id number] By: #### [id number], 968T, A1C, 42A #### [facility] Default [address] [place] [address]Fqrulkhmdmb/100 WBC (Bld)3.9 %NormalWexner Medical CenterComment on above:Order Comment: [facility] performed at: [employer], [employer] [facility], [address] [facility], [address] [place] [address], [address] [place] [address], Collections Clerk: Josep Amos MD [facility] Date/Time: [facility] Results Received Date/Time: [facility] Reported Date/Time: [id number] By: #### [id number], 968T, A1C, 42A #### [facility] [address] [place], [place] [address]Ktjizrglmzy distribution width (RBC) [Ratio]13.2 %Gviavq45.0-15.0 [facility] Medical CenterComment on above:Order Comment: [facility] performed at: [employer] [facility], [address] [place] [address], [address] [place] [address], [address] [place] [address], Collections Clerk: Josep Amos MD [facility] Date/Time: [facility] Results Received Date/Time: [facility] Reported Date/Time: [id number] By: #### [id number], 968T, A1C, 42A #### [facility] [address] [place], [place] [address]Brnxmxlqyv (Bld) [Volume fraction]39.4 %Xpauev70.5-50.0[facility] SpecialistComment on above:Order Comment: [facility] performed at: [employer], [employer] [facility], [address] [place] [address], [address] [place] [address], [address] [place] [address], Collections Clerk: Josep Amos MD [facility] Date/Time: [facility] Results Received Date/Time: [id number] [facility] Reported Date/Time: [id number] By: #### [id number], 968T, A1C, 42A #### [facility] [address] [place], [place] [address]Myoapsmqax (Bld) [Mass/Vol]13.1 g/dLLow13.2-17.1NThe MetroHealth SystemComment on above:Order Comment: [facility] performed at: [employer], [employer] [facility], [address] [facility], [address] [place] [address], [address] [place] [address], Collections Clerk: Josep Amos MD [facility] Date/Time: [facility] Results Received Date/Time: [facility] Reported Date/Time: [id number] By: #### [id number], 968T, A1C, 42A #### [facility] [address] [place], [place] [address]Nipxxmekiwq (Bld) [#/Vol]1.288 10*3/wXBdcsgj945-6643Xelozjak [place] [facility] SpecialistComment on above:Order Comment: [facility] performed at: [employer], [employer] [facility], [address] [place] [address], [address] [place] [address], [address] [place] [address], Collections Clerk: Josep Amos MD [facility] Date/Time: [facility] Results Received Date/Time: [facility] Reported Date/Time: [id number] By: #### [id number], 968T, A1C, 42A #### [facility] [address] [place], [place] [address]Xofvmprogqx/100 WBC (Bld)23.0 %NormalNoFulton County Health Center SpecialistComment on above:Order Comment: [facility] performed at: [employer], [employer] [facility], [address] [facility], [address] [place] [address], [address] [place] [address], Collections Clerk: Josep Amos MD [facility] Collection Date/Time: [facility] Results Received Date/Time: [facility] Reported Date/Time: [id number] By: #### [id number], 968T, A1C, 42A #### [facility] [address] [place], [place] [address]AJK (RBC) [Entitic mass]29.2 vmOdgakf31.0-33.0[facility] SpecialistComment on above:Order Comment: [facility] Testing performed at: [facility], [employer] [facility], [address] [facility], [address] [place] [address], [address] [place] [address], Collections Clerk: Josep Amos MD [facility] Date/Time: [facility] Results Received Date/Time: [facility] Reported Date/Time: [id number] By: #### [id number], 968T, A1C, 42A #### [facility] [address] [place], [place] [address]BXVB (RBC) [Mass/Vol]33.2 g/yMLfwlhf13.0-36.0[facility] SpecialistComment on above:Order Comment: [facility] performed at: [employer], [employer] [facility], [address] [place] [address], [address] [place] [address], [address] [place] [address], Collections Clerk: Josep Amos MD [facility] Date/Time: [facility] Results Received Date/Time: [facility] Reported Date/Time: [id number] By: #### 61586X, 968T, A1C, 42A #### [facility] Default [address] [place], [place] [address]LNO (RBC) [Entitic vol]87.9 gYTmewmn81.0-100.0[facility] SpecialistComment on above:Order Comment: [facility] performed at: [employer], [employer] [facility], [address] [facility], [address] [place] [address], [address] [place] [address], Collections Clerk: Josep Amos MD [facility] Date/Time: [facility] Results Received Date/Time: [facility] Reported Date/Time: [id number] By: #### [id number], 968T, A1C, 42A #### [facility] [address] [place], [place] [address]EIJVYBM813 cells/dOKxvykt074-346Rdmlfrch [employer] Comment on above:Order Comment: [facility] performed at: [employer], [employer] [facility], [address] [facility] , [address] [place] [address], [address] [place] [address], Collections Clerk: Josep Amos MD [facility] Collection Date/Time: [facility] Results Received Date/Time: [facility] Reported Date/Time: [id number] By: #### [id number], 968T, A1C, 42A #### [facility] [address] [place], [place] [address]Qnalbrktd/100 WBC (Bld)7.4 %NormalNoFulton County Health Center SpecialistComment on above:Order Comment: [facility] performed at: [employer], [employer] [facility], [address] [facility] , [address] [place] [address], [address] [place] [address], Collections Clerk: Josep Amos MD [facility] Date/Time: [facility] Results Received Date/Time: [facility] Reported Date/Time: [id number] By: #### [id number], 968T, A1C, 42A #### [facility] [address] [place], [place] [address]Oxbmumrewya (Bld) [#/Vol]3.64 10*3/jTLuubdr6489-8060Stolimkd [place] [facility] SpecialistComment on above:Order Comment: [facility] performed at: [employer], [employer] [facility], [address] [facility] , [address] [place] [address], [address] [place] [address], Collections Clerk: Josep Amos MD [facility] Date/Time: [facility] Results Received Date/Time: [facility] Reported Date/Time: [id number] By: #### [id number], 968T, A1C, 42A #### [facility] [address] [place], [place] [address]Abghheteaix/100 WBC (Bld)65 %NormalKettering Health [facility] Campus SpecialistComment on above:Order Comment: [facility] performed at: [facility], [employer] [facility], [address], [address] [place] [address], [address] [place] [address], Collections Clerk: Josep Amos MD [facility] Collection Date/Time: [facility] Results Received Date/Time: [facility] Reported Date/Time: [id number] By: #### [id number], 968T, A1C, 42A #### [facility] Default [address] [place], [place] [address]Grevueac mean volume (Bld) [Entitic vol]10.4 fLNormal7.5-12.5 [facility] SpecialistComment on above:Order Comment: [facility] performed at: [employer], [employer] [facility], [address], [address] [place] [address], [address] [place] [address], Collections Clerk: Josep Amos MD [facility] Date/Time: [facility] Results Received Date/Time: [facility] Reported Date/Time: [id number] By: #### [id number], 968T, A1C, 42A #### [facility] Default [address] [place], [place] [address]Dtrgdlbvv (Bld) [#/Vol]208 10*3/yXFwaeyo501-996Giivclaj [place] [facility] SpecialistComment on above:Order Comment: [facility] performed at: [employer], [employer] [facility], [address], [address] [place] [address], [address] [place] [address], Collections Clerk: Josep Amos MD [facility] Collection Date/Time: [facility] Results Received Date/Time: [facility] Reported Date/Time: [id number] By: #### 85266M, 968T, A1C, 42A #### [facility] Default [address] [place], [place] [address]TAU (Bld) [#/Vol]4.48 10*6/uLNormal4.20-5.80NoFulton County Health Center SpecialistComment on above:Order Comment: [facility] performed at: [employer], [employer] [facility], [address] [facility], [address] [place] [address], [address] [place] [address], Collections Clerk: Josep Amos MD [facility] Collection Date/Time: [facility] Results Received Date/Time: [facility] Reported Date/Time: [id number] By: #### 03932K, 968T, A1C, 42A #### [facility] Default [address] [place] [address]ZHL (Bld) [#/Vol]5.6 10*3/uLNormal3.8-10.8NoFulton County Health Center SpecialistComment on above:Order Comment: [facility] performed at: [employer], [employer] [facility], [address] [facility], [address] [place] [address], [address] [place] [address], Collections Clerk: Josep Amos MD [facility] Collection Date/Time: [facility] Results Received Date/Time: [facility] Reported Date/Time: [id number] By: #### [id number], 968T, A1C, 42A #### [facility] Default [address] [place] [address]R - COMPREHENSIVE METABOLIC PANEL W/EGFRon 88-07-0064Yzgyeyb [Mass/Vol]4.1 g/dLNormal3.6-5.1NorthSt. Anthony's Hospital SpecialistComment on above: Order Comment: [facility] performed at: [employer], [employer] [facility], [address] [facility], [address] [place] [address], [address] [place] [address], Collections Clerk: Josep Amos MD [facility] Date/Time: [facility] Results Received Date/Time: [facility] Reported Date/Time: [id number] By: #### [id number], 968T, A1C, 42A #### [facility] Default [address] [place] [address]Vrhqfby/Globulin [Mass ratio]1.6 {ratio}Normal1.0-2.5[facility] SpecialistComment on above:Order Comment: [facility] Testing performed at: Q[employer], [employer] [facility], [address] [facility], [address] [place] [address], [address] [place] [address], Collections Clerk: Josep Amos MD [facility] Collection Date/Time: [facility] Results Received Date/Time: [facility] Reported Date/Time: [id number] By: #### [id number], 968T, A1C, 42A #### [facility] Default [address] [place], [place] [address]VXN [Catalytic activity/Vol]76 U/KGzleig66-236Tlavchvu [place] [facility] SpecialistComment on above:Order Comment: [facility] Testing performed at: [employer], [employer] [facility], [address] [place] [address], [address] [place] [address], [address] [place] [address], Collections Clerk: Josep Amos MD [facility] Collection Date/Time: [facility] Results Received Date/Time: [facility] Reported Date/Time: [id number] By: #### [id number], 968T, A1C, 42A #### [facility] [address] [place], [place] [address]SRL [Catalytic activity/Vol]21 U/LNormal9-46NoFulton [facility] SpecialistComment on above:Order Comment: [facility] Testing performed at: [employer], [employer] [facility], [address] [facility], [address] [place] [address], [address] [place] [address], Collections Clerk: Josep Amos MD [facility] Collection Date/Time: [facility] Results Received Date/Time: [facility] Reported Date/Time: [id number] By: #### [id number], 968T, A1C, 42A #### [facility] [address] [place], [place] [address]NQU [Catalytic activity/Vol]16 U/FZvhujp36-07Uvvuxebr [place] [facility] SpecialistComment on above:Order Comment: [facility] Testing performed at: [employer], [employer] [facility], [address] [place] [address], [address] [place] [address], [address] [place] [address], Collections Clerk: Josep Amos MD [facility] Collection Date/Time: [facility] Results Received Date/Time: [facility] Reported Date/Time: [id number] By: #### [id number], 968T, A1C, 42A #### [facility] [address] [place], [place] [address]Fpwxctwfo [Mass/Vol]0.6 mg/dLNormal0.2-1.2[facility] SpecialistComment on above:Order Comment: [facility] Testing performed at: [employer], [employer] [facility], [address] [place] [address], [address] [place] [address], [address] [place] [address], Collections Clerk: Josep Amos MD [facility] Collection Date/Time: [facility] Results Received Date/Time: [facility] Reported Date/Time: [id number] By: #### [id number], 968T, A1C, 42A #### [facility] Default [address] [place], [place] [address]HUG/CREA26 NOT APPLICABLENormal6-22NoPremier Health Miami Valley HospitalComment on above:Order Comment: [facility] Testing performed at: [employer], [employer] [facility], [address] [place] [address], [address] [place] [address], [address] [place] [address], Collections Clerk: Josep Amos MD [facility] Collection Date/Time: [facility] Results Received Date/Time: [facility] Reported Date/Time: [id number] By: #### [id number], 968T, A1C, 42A #### [facility] [address] [place], [place] [address]Lsxicid [Mass/Vol]9.0 mg/dLNormal8.6-10.3NoFulton County [facility] Center SpecialistComment on above:Order Comment: [facility] Testing performed at: [facility], [employer] [facility], [address] [place] [address], [address] [place] [address], [address] [place] [address], Collections Clerk: Josep Amos MD [facility] Collection Date/Time: [facility] Results Received Date/Time: [facility] Reported Date/Time: [id number] By: #### [id number], 968T, A1C, 42A #### [facility] [address] [place], [place] [address]Yidhjjla [Moles/Vol]105 mmol/PLoqulk53-872Bsefgzwf [place] [facility] SpecialistComment on above:Order Comment: [facility] Testing performed at: [facility], [employer] [facility], [address] [place] [address], [address] [place] [address], [address] [place] [address], Collections Clerk: Josep Amos MD [facility] Collection Date/Time: [facility] Results Received Date/Time: [facility] Reported Date/Time: [id number] By: #### [id number], 968T, A1C, 42A #### [facility] [address] [place], [place] [address]AT8 [Moles/Vol]29 mmol/LKzuyut21-84Mupwarsw [place] [facility] SpecialistComment on above:Order Comment: [facility] Testing performed at: [facility], [employer] [facility], [address] [place] [address], [address] [place] [address], [address] [place] [address], Collections Clerk: Josep Amos MD [facility] Collection Date/Time: [facility] Results Received Date/Time: [facility] Reported Date/Time: [id number] By: #### [id number], 968T, A1C, 42A #### [facility] [address] [place], [place] [address]Ugmqazhcdy [Mass/Vol]0.92 mg/dLNormal0.70-1.25[facility]zonan [facility] SpecialistComment on above:Order Comment: Quest Testing performed at: [employer], [employer] [facility], [address] [facility], [address] [place] [address], [address] [place] [address], Collections Clerk: Josep Amos MD [facility] Collection Date/Time: [facility] Results Received Date/Time: [facility] Reported Date/Time: [id number] Comment: For patients >49 years of age, the reference limit for Creatinine is approximately 13% higher for people identified as -Mauritanian.Performed By: #### [id number], 968T, A1C, 42A #### [facility] [address] [place], [place] [address]fCLEAX (Quest)102 mL/min/1.94p4Yseebn> OR = 60[facility] SpecialistComment on above:Order Comment: Quest Testing performed at: Q, [employer] [facility], [address] [facility] , [address] [place] [address], [address] [place] [address], Collections Clerk: Josep Amos MD [facility] Collection Date/Time: [facility] Results Received Date/Time: [facility] Reported Date/Time: [id number] By: #### [id number], 968T, A1C, 42A #### [facility] [address] [place], [place] [address]zCAOSCV (Quest)88 mL/min/1.69b9Jbzqfn> OR = 60[facility] SpecialistComment on above:Order Comment: Quest Testing performed at: Q, [employer] [facility], [address] [facility], [address] [place] [address], [address] [place] [address], Collections Clerk: Josep Amos MD [facility] Collection Date/Time: [facility] Results Received Date/Time: [facility] Reported Date/Time: [id number] By: #### [id number], 968T, A1C, 42A #### [facility] [address] [place], [place] [address]Kejnfyre (S) [Mass/Vol]2.5 g/dLNormal1.9-3.7[facility] SpecialistComment on above:Order Comment: Quest Testing performed at: [employer], [employer] [facility], [address] [place] [address], [address] [place] [address], [address] [place] [address], Collections Clerk: Josep Amos MD [facility] Collection Date/Time: [facility] Results Received Date/Time: [facility] Reported Date/Time: [id number] By: #### 61190S, 968T, A1C, 42A #### [facility] [address] [place], [place] [address]Vvqpixn [Mass/Vol]131 mg/vQOkvr56-02Epjpwwwu [place] [facility] SpecialistComment on above:Order Comment: [facility] Testing performed at: [employer], [employer] [facility], [address] [facility], [address] [place] [address], [address] [place] [address], Collections Clerk: Josep Amos MD [facility] Collection Date/Time: [facility] Results Received Date/Time: [facility] Reported Date/Time: [id number] Comment: Fasting reference interval For someone without known diabetes, a glucose value >125 mg/dL indicates that they may have diabetes and this should be confirmed with a follow-up test.Performed By: #### 06518M, 968T, A1C, 42A #### [facility] [address] [place], [place] [address]Fhltmefpd [Moles/Vol]4.0 mmol/LNormal3.5-5.3[facility]ortCommunity [facility] SpecialistComment on above:Order Comment: Quest Testing performed at: [employer], [employer] [facility], [address] [facility], [address] [place] [address], [address] [place] [address], Collections Clerk: Josep Amos MD [facility] Collection Date/Time: [facility] Results Received Date/Time: [facility] Reported Date/Time: [id number] By: #### [id number], 968T, A1C, 42A #### [facility] Default [address] [place], [place] [address]Lcfpqie [Mass/Vol]6.6 g/dLNormal6.1-8.1[facility] SpecialistComment on above:Order Comment: Quest Testing performed at: [employer], [employer] [facility], [address] [place] [address], [address] [place] [address], [address] [place] [address], Collections Clerk: Josep Amos MD [facility] Collection Date/Time: [facility] Results Received Date/Time: [facility] Reported Date/Time: [id number] By: #### [id number], 968T, A1C, 42A #### [facility] Default [address] [place], [place] [address]Eldmnt [Moles/Vol]140 mmol/NKexego048-188Cdhyciew [place] [facility] SpecialistComment on above:Order Comment: Quest Testing performed at: [facility], [employer] [facility], [address] [place] [address], [address] [place] [address], [address] [place] [address], Collections Clerk: Josep Amos MD [facility] Collection Date/Time: [facility] Results Received Date/Time: [facility] Reported Date/Time: [id number] By: #### [id number], 968T, A1C, 42A #### [facility] Default [address] [place], [place] [address]Lndo nitrogen [Mass/Vol]24 mg/dLNormal7-25[facility]ortCommunity [facility] SpecialistComment on above:Order Comment: [facility] Testing performed at: [employer], [employer] [facility], [address] [place] [address], [address] [place] [address], [address] [place] [address], Collections Clerk: Josep Amos MD [facility] Collection Date/Time: [facility] Results Received Date/Time: [facility] Reported Date/Time: [id number] By: #### 62839T, 968T, A1C, 42A #### [facility] Default [address] [place], [place] [address]M - Lipid Panelon 14-72-2511Kqkwjjpuzie [Mass/Vol]123 mg/dLNormal <200[facility] arizonaMarion Hospital SpecialistComment on above:Order Comment: [facility] Testing performed at: [employer], [employer] [facility], [address] [place] [address], [address] [place] [address], [address] [place] [address], Collections Clerk: Josep Amos MD [facility] Collection Date/Time: [facility] Results Received Date/Time: [facility] Reported Date/Time: [id number] By: #### [id number], 968T, A1C, 42A #### [facility] Default [address] [place], [place] [address]Kqnyvwdftcz in HDL [Mass/Vol]30 mg/dLLow> OR = 40NoF[facility] SpecialistComment on above:Order Comment: [facility] Testing performed at: [employer], [employer] [facility], [address] [facility], [address] [place] [address], [address] [place] [address], Collections Clerk: Josep Amos MD [facility] Collection Date/Time: [facility] Results Received Date/Time: [facility] Reported Date/Time: [id number] By: #### [id number], 968T, A1C, 42A #### [facility] Default [address] [place], [place] [address]Pdewmknutfx in LDL [Mass/Vol]76 mg/dLNormalNoFulton County Health Center SpecialistComment on above:Order Comment: Quest Testing performed at: [employer], [employer] [facility], [address] [place] [address], [address] [place] [address], [address] [place] [address], Collections Clerk: Josep Amos MD Quest Collection Date/Time: [facility] Results Received Date/Time: [facility] Reported Date/Time: [id number] Comment: Reference range: <100 Desirable range <100 mg/dL for primary prevention; <70 mg/dL for patients with CHD or diabetic patients with > or = 2 CHD risk factors. LDL-C is now calculated using the Emelia calculation, which is a validated novel method providing better accuracy than the Friedewald equation in the estimation of LDL-C. Micky OCHOA et al. ROSEMARIE. 2013;310(19): 4364-8064 (http://education.Fieldoo.[employer]/faq/VYY472)Performed By: #### [id number], 968T, A1C, 42A #### [facility] Default [address] [place], [place] [address]Kqyumpnvxca.total/Cholesterol in HDL [Mass ratio]4.1 {ratio} Normal<5.0[facility] SpecialistComment on above:Order Comment: [facility] Testing performed at: [employer], [employer] [facility], [address] [place] [address], [address] [place] [address], [id number], Collections Clerk: Josep Amos MD [facility] Collection Date/Time: [facility] Results Received Date/Time: [facility] Reported Date/Time: [id number] By: #### [id number], 968T, A1C, 42A #### [facility] Default [address] [place], [place] [address]JTG HDL GLQAIFGXWJD71 mg/dL (calc)Normal<130[facility] SpecialistComment on above:Order Comment: Quest Testing performed at: [employer] [facility], [address] [place] [address], [address] [place] [address], [address] [place] [address], Collections Clerk: Josep Amos MD [facility] Collection Date/Time: [facility] Results Received Date/Time: [facility] Reported Date/Time: [id number] Comment: For patients with diabetes plus 1 major ASCVD risk factor, treating to a non-HDL-C goal of <100 mg/dL (LDL-C of <70 mg/dL) is considered a therapeutic option.Performed By: #### [id number], 968T, A1C, 42A #### [facility] Default [address] [place], [place] [address]Pvaemcfmwgfy [Mass/Vol]89 mg/dLNormal<150Northern [facility] SpecialistComment on above:Order Comment: Quest Testing performed at: [employer], [employer] [facility], [address] [place] [address], [address] [place] [address], [id number], Collections Clerk: Josep Amos MD [facility] Collection Date/Time: [facility] Results Received Date/Time: [facility] Reported Date/Time: [id number] By: #### 68837S, 968T, A1C, 42A #### [facility] Default [address] [place] [address] Vital Signs Date TimeVital SignValuePerforming HzggjbdhzEzgqtshq99-97-1128 14:00-0400Body mass index (BMI) [Ratio]32.37 kg/c6Dpszmml Mane SCRAP HOIST OPERATOR Work Phone: [phone] [place], [place] [address]Eomvlbbqar51-35-7918 14:00-0400Body temperature 97.3 [degF]Rosalva Mane SCRAP HOIST OPERATOR Work Phone: [phone] [place], [place] [address]Dggdfnhvxt99-70-9354 14:00-0400Body .48 kgChristy Mane SCRAP HOIST OPERATOR Work Phone: [phone] HospitalDsfkcypxds32-15-7118 14:00-0400Diastolic blood mm[Hg]Rosalva Mane SCRAP HOIST OPERATOR Work Phone: [phone] HospitalUimcdsqpdr08-01-4707 14:00-0400Heart rate82 /min Rosalva Mane SCRAP HOIST OPERATOR Work Phone: [phone] HospitalVfyjdrmsvh26-49-3520 14:00-6238EmU1% (BldA) [Mass fraction]96 %Rosalva Mane SCRAP HOIST OPERATOR Work Phone: [phone] HospitalFxcxmjpdre31-90-2443 14:00-0400Systolic blood rvnawpqf554 mm[Hg]Rosalva Mane SCRAP HOIST OPERATOR Work Phone: [phone] HospitalWolskfehol17-18-5572 12:51-0400Body ohfnve736.5 cmChrvanda Rodrigueztrick SCRAP HOIST OPERATOR Work Phone: [phone] HospitalXyvdcppzju40-26-9494 12:51-0400Body mass index (BMI) [Ratio]31.5 kg/t7Bybjrcf Mane SCRAP HOIST OPERATOR Work Phone: [phone] [place] [address]-04-2025 12:51-0400Body .31 kgChristy Mane SCRAP HOIST OPERATOR Work Phone: [phone] [place] [address]-04-2025 12:51-0400Diastolic blood ihstyhsh98 mm[Hg]Rosalva Mane SCRAP HOIST OPERATOR Work Phone: [phone] [place] [address]-04-2025 12:51-0400Heart rate78 /min Rosalva Mane SCRAP HOIST OPERATOR Work Phone: [phone] [place] [address]-04-2025 12:51-0400Respiratory rate18 /minChristy Mane SCRAP HOIST OPERATOR Work Phone: [phone] [place] [address]-04-2025 12:51-7081ItI9% (BldA) [Mass fraction]98 %Rosalva Mane SCRAP HOIST OPERATOR Work Phone: [phone] [place], [place] 6191208-04-2025 12:51-0400Systolic blood gqzqypkr629 mm[Hg]Rosalva Mane SCRAP HOIST OPERATOR Work Phone: [phone] [place], [place] 619[address]04-29-2025 13:44-0400Body mass index (BMI) [Ratio]33.5 kg/c8Thlswim Mane SCRAP HOIST OPERATOR Work Phone: [phone] [place] [address]-29-2025 13:44-0400Body temperature 97.5 [degF]Rosalva Mane SCRAP HOIST OPERATOR Work Phone: [phone] [place] [address]-29-2025 13:44-0400Body fhnlru944.56 kgChristy Mane SCRAP HOIST OPERATOR Work Phone: [phone] [place] [address]-29-2025 13:44-0400Diastolic blood ninljsmt33 mm[Hg]Rosalva Mane SCRAP HOIST OPERATOR Work Phone: [phone] [place] [address]-29-2025 13:44-0400Heart rate73 /min Rosalva Mane SCRAP HOIST OPERATOR Work Phone: [phone] [place] [address]-29-2025 13:44-3153YnG2% (BldA) [Mass fraction]93 %Rosalva Rodrigueztrick SCRAP HOIST OPERATOR Work Phone: [phone] [place], [place] 6[address]04-29-2025 13:44-0400Systolic blood kiwiamwr97 mm[Hg]Rosalva Hipatrick SCRAP HOIST OPERATOR Work Phone: [phone] [place], [place] 6191201-21-2025 13:13-0500Body mass index (BMI) [Ratio]34.37 kg/z6Kynbfar Mane SCRAP HOIST OPERATOR Work Phone: [phone] [place], [place] 6191201-21-2025 13:13-0500Body temperature 97.5 [degF]Rosalva Hipatrick SCRAP HOIST OPERATOR Work Phone: [phone] [place], [place] 6191201-21-2025 13:13-0500Body kbkhfi608.74 kgCharturo Mane SCRAP HOIST OPERATOR Work Phone: [phone] [place], [place] 6191201-21-2025 13:13-0500Diastolic blood ytxeplse83 mm[Hg]Rosalva Hipatrick SCRAP HOIST OPERATOR Work Phone: [phone] [place], [place] 6191201-21-2025 13:13-0500Systolic blood aarnnqtf218 mm[Hg]Rosalva Hipatrick SCRAP HOIST OPERATOR Work Phone: [phone] [place], [place] 6191210-21-2024 13:54-0400Body unasyp522.5 cmChristnam RodriguezMane SCRAP HOIST OPERATOR Work Phone: [phone] [place], [place] 6191210-21-2024 13:54-0400Body mass index (BMI) [Ratio]35 kg/h5Whwiqbp Mane SCRAP HOIST OPERATOR Work Phone: [phone] [place], [place] 6191210-21-2024 13:54-0400Body .01 kgChweslyty Mane SCRAP HOIST OPERATOR Work Phone: [phone] [place], [place] 6191210-21-2024 13:54-0400Diastolic blood ewmsspht67 mm[Hg]Rosalva Celestinzpatrick SCRAP HOIST OPERATOR Work Phone: [phone] [place], [place] 619[address]10-21-2024 13:54-0400Heart rate78 /min Rosalva Hipatrick SCRAP HOIST OPERATOR Work Phone: [facility] HospitalBzovtygcpq35-31-8552 13:54-0400Respiratory rate18 /minChristy Mane SCRAP HOIST OPERATOR Work Phone: [facility] HospitalMuwxwhvpew82-46-8855 13:54-2645PpV4% (BldA) [Mass fraction]99 %Rosalva Rodrigueztrick SCRAP HOIST OPERATOR Work Phone: noLafayette [facility] Health CenterYvbvjqyaph72-65-4414 13:54-0400Systolic blood yjvstjgj549 mm[Hg]Rosalva Mane SCRAP HOIST OPERATOR Work Phone: [facility] HospitalVxqznpcxeb02-78-0743 10:41-0500Body .5 Lico Curry MD Work Phone: [phone] [place], [place] 3596802-16-2024 10:41-0500Body mass index (BMI) [Ratio]35.27 kg/h3Auarxm Patricio STEELE Work Phone: 1([phone])351-ImagistxMemorial HospitalPFSweb Wlukax94-94-5451 10:41-0500Body afeery890 kgThomas Patricio STEELE Work Phone: [phone]-ImagistxKerbs Memorial HospitalSirna Therapeutics Iivokm05-84-0929 10:41-0500Diastolic blood swgzlmmu70 mm[Hg]Vidal Curry MD Work Phone: 1(715)875-[facility]istxC[facility]02-16-2024 10:41-0500Heart rate 69 /minThomas Patricio STEELE Work Phone: 1([phone])354-ImagistxKerbs Memorial HospitalSirna Therapeutics Stlmmj94-48-1551 10:41-9187QpK9% (BldA) [Mass fraction]95 %Vidal Curry MD Work Phone: [phone]-ImagistxMemorial HospitalArcamed [facility] Borgess HospitalNiofsw86-91-4032 10:41-0500Systolic blood tfrotsou547 mm[Hg]Vidal Curry MD Work Phone: [facility] HospitalSirna Therapeutics [facility] Encounters Encounter DateEncounter [facility] ProviderFacilityStart: 08-22-2025 End: 69-88-4746Ckthpw flowsheetNatalie Maurice Lora RETIREMENT ADMINISTRATOR-RAILROAD DINING CAR STEWARD/STEWARDESS Work Phone: [facility]atologyStart: 08-22-2025 End: 56-09-9505Juwkai flowsheetNatalie A Felter RETIREMENT ADMINISTRATOR-RAILROAD DINING CAR STEWARD/STEWARDESS Work Phone: noMS [facility] DermatologyStart: 08-22-2025 End: 97-04-8099Zqdnaw outpatient visit 15 minutesNatalie A Felter RETIREMENT ADMINISTRATOR-RAILROAD DINING CAR STEWARD/STEWARDESS Work Phone: noMS [facility] DermatologyComment on above:Psoriasis vulgarisStart: 08-22-2025 End: 26-76-8962tfokpoigqzOBGRAXH A FELTERNot AvailableStart: 08-12-2025 End: 21-07-7046Nazbbp OnlyChristy A Mane SCRAP HOIST OPERATOR Work Phone: noWest Los Angeles VA Medical CenterComment on above:Type 2 diabetes mellitus with diabetic neuropathy, without long-term current use of insulin (HCC)Start: 08-01-2025 End: 54-32-7658YgeladAdqvxsvp Hohman MD Work Phone: noWest Los Angeles VA Medical CenterComment on above: Polyneuropathy associated with underlying disease (HCC)Start: 06-25-2025 End: 11-39-1518Tgiepe flowsheetChristy A Mane SCRAP HOIST OPERATOR Work Phone: noJohn F. Kennedy Memorial Hospitaltart: 06-25-2025 End: 11-03-3349Ppwjdj flowsheetChristy A Mane SCRAP HOIST OPERATOR Work Phone: no[facility] MedicineStart: 06-25-2025 End: 04-88-9326Ymakql outpatient visit 25 minutesChristy A Mane SCRAP HOIST OPERATOR Work Phone: noWest Los Angeles VA Medical CenterComment on above:Type 2 diabetes mellitus with diabetic neuropathy, without long-term current use of insulin (HCC) (Primary Dx); Primary hypertensionStart: 06-25-2025 End: 25-38-9414llkgurbapkWZRIUWU A FITZPATRICKNot AvailableStart: 05-27-2025 End: 91-53-2094Ikkfak flowsheetChristy A Mane SCRAP HOIST OPERATOR Work Phone: noms [facility] MedicineStart: 05-27-2025 End: 03-16-0023Xgklvq flowsheetChristy A Antonietta SCRAP HOIST OPERATOR Work Phone: noms [facility] MedicineStart: 05-27-2025 End: 11-66-2591Kfaiglk encounter procedureChristy A Antonietta SCRAP HOIST OPERATOR Work Phone: noms [facility] MedicineComment on above:Encounter for annual wellness exam in Medicare patient (Primary Dx); Screening for deficiency anemia; Screening for prostate cancer; Bilateral artificial lens implant; Primary hypertension ; Mixed hyperlipidemia ; Morbid obesity due to excess calories (CMS-HCC); Other chronic pain; PAD (peripheral artery disease); Polyneuropathy associated with underlying disease (HCC); Type 2 diabetes mellitus with diabetic neuropathy, without long-term current use of insulin ([facility]); Spinal stenosis of lumbar region with neurogenic claudication; Venous stasis dermatitis of both lower extremities; Psoriasis ; Degeneration of intervertebral disc of lumbar region, unspecified whether pain present; Primary osteoarthritis of knees, bilateral; Atopic dermatitis, unspecified type; Degeneration of iris (pigmentary), bilateral; Screening for colon cancerStart: 05-27-2025 End: 98-11-7012koacjxlndmKSOMXGY A Nessa AvailableStart: 02-19-2025 End: 73-23-4670Meccqhryk department patient visitCHRISTY A [facility] Centertart: 02-19-2025 End: 92-01-2109Zbtkjm flowsheetChristy A Antonietta SCRAP HOIST OPERATOR Work Phone: noms FNR FMStart: 02-19-2025 End: 41-75-0157Nrlvlo flowsheetChristy A Antonietta SCRAP HOIST OPERATOR Work Phone: noms FNR FMStart: 02-19-2025 End: 77-65-8685Crpswi outpatient visit 25 minutesChristy Maurice Mane SCRAP HOIST OPERATOR Work Phone: noms FNR FMComment on above:Primary hypertension (CMS/HCC) (Primary Dx); Type 2 diabetes mellitus with diabetic neuropathy, without long-term current use of insulin ([facility]); Hypotension, unspecified hypotension type; Irregular heart rateStart: 02-19-2025 End: 00-56-4217fxvlygskyrDVTMVUN A FITZPATRICKNot AvailableStart: 11-21-2024 End: 69-96-7824Pbswel OnlyChristy A Mane SCRAP HOIST OPERATOR Work Phone: noms FNR FMComment on above:Type 2 diabetes mellitus with diabetic neuropathy, without long-term current use of insulin (CMS/HCC) (Primary Dx)Start: 11-13-2024 End: 37-13-4570Vbqfzp flowsheetChristy A Mane SCRAP HOIST OPERATOR Work Phone: NOLO FNR FMStart: 11-13-2024 End: 95-19-7865Ilshlr flowsheetChristy A Mane SCRAP HOIST OPERATOR Work Phone: noms FNR FMStart: 11-13-2024 End: 16-08-1923Mmyair outpatient visit 25 minutesChristy A Mane SCRAP HOIST OPERATOR Work Phone: noms FNR FMComment on above:Primary hypertension (CMS/HCC) (Primary Dx); Type 2 diabetes mellitus with other skin ulcer (CODE) ([facility]); 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 of skin ([facility]); Type 2 diabetes mellitus with diabetic peripheral angiopathy without gangrene ([facility]); Type 2 diabetes mellitus with diabetic neuropathy, unspecified ([facility]); Morbid (severe) obesity due to excess calories ([facility]); Mixed hyperlipidemia ([facility]); Body mass index (BMI) 35.0-35.9, adultStart: 11-13-2024 End: 56-62-8851aajxzxmkebAKGIJYC A FITZPATRICKNot AvailableStart: 10-29-2024 End: 28-90-1790LrevocNatbcnq A Mane SCRAP HOIST OPERATOR Work Phone: noms FNR FMComment on above:Type 2 diabetes mellitus with hyperglycemia, without long-term current use of insulin ([facility]/HCC)Start: 09-07-2024 End: 03-24-2702Oueqyenvc encounterTaylor Sergo HARRISON FNR FMStart: 08-21-2024 End: 24-28-9698Zakkyf flowsheetNatalie A Felter RETIREMENT ADMINISTRATOR-RAILROAD DINING CAR STEWARD/STEWARDESS Work Phone: NOFU SWS DERMStart: 08-21-2024 End: 04-57-1614Bftaad flowsheetNatalie A Felter RETIREMENT ADMINISTRATOR-RAILROAD DINING CAR STEWARD/STEWARDESS Work Phone: noms SWS DERMStart: 08-21-2024 End: 49-29-1941Iitauv outpatient visit 25 minutesNatalie A Felter RETIREMENT ADMINISTRATOR-RAILROAD DINING CAR STEWARD/STEWARDESS Work Phone: noms SWS DERMComment on above:Psoriasis vulgaris (CMS/HCC) (Primary Dx)Start: 08-14-2024 End: 11-42-4355ZjrtsmMbblt G Keefe DO Work Phone: NOMS FNR FMComment on above:Type 2 diabetes mellitus with diabetic neuropathy, without long-term current use of insulin ([facility]) Start: 08-13-2024 End: 78-27-9588Xaryzf flowsheetChristy A Mane SCRAP HOIST OPERATOR Work Phone: NOMS FNR FMStart: 08-13-2024 End: 91-07-7236Rcxdam flowsheetChristy A Mane SCRAP HOIST OPERATOR Work Phone: NOAU FNR FMStart: 08-13-2024 End: 03-95-8016Gdicvw outpatient visit 25 minutesChristy A Mane SCRAP HOIST OPERATOR Work Phone: NOMS FNR FMComment on above:Acute pain of right knee (Primary Dx); Type 2 diabetes mellitus with diabetic neuropathy, without long-term current use of insulin ([facility]); Acute pain of left knee; Primary hypertension ([facility]/HCC)Start: 08-13-2024 End: 06-35-6297RvoqtqXldtyzxg Hohman MD Work Phone: NOMS FNR FMComment on above:Type 2 diabetes mellitus with diabetic neuropathy, without long-term current use of insulin (CMS/HCC); Mixed hyperlipidemia (CMS/HCC)Start: 07-27-2024 End: 59-90-0757AgiqqaAkecv Momo AlvarezNicko DO Work Phone: NOMS FNR FMComment on above:Venous stasis dermatitis of both lower extremitiesStart: 12-09-2023 End: 44-10-1711Ngeqcv consultation new/estab patient 40 minThomas M Patricio STEELE Work Phone: [facility] CardiologyComment on above: Essential hypertension (Primary Dx)Start: 20-90-9520Jpxvkyire encounterJetrinidad Peter [facility]ENTERProMedica Physicians CardiologyStart: 67-04-0030Ywcky abstracting Scanning Provider ExternalProMedica Physicians CardiologyStart: 11-16-2023 Telephone encounterShelby ReadelProMedica Physicians CardiologyComment on above: AppointmentStart: 03-02-2023 End: 18-90-4890rsrfidacgkTUKAA D HIGHLANDERFacility:E2Gpnox: 11-24-2022 End: 55-42-9146mojuyuyibiVPNWA D HIGHLANDERFacility:I3Jaucw: 08-25-2022 End: 35-60-0551gbdazjgdwfQKSJB D HIGHLANDERFacility:T1Jyssq: 05-19-2022 End: 42-01-1225coqnlmydvkOWMWV D HIGHLANDERFacility:H1 Procedures DateProcedureProcedure DetailPerforming ClinicianStart: 41-40-8088Bspwoveala A1c/Hemoglobin.total in BloodChristy A Antonietta GIORDANO Work Phone: Plan of Treatment DateCare ActivityDetailAuthorStart: 92-92-6840Nzytsdpgk for malignant neoplasm of colonNOMS HealthcareStart: 08-21-2026 End: 57-82-3526Szcnsle encounter oqbhdoskr51/29/2026 1:00 PM EDT Office Visit [facility] [address] [place] [phone] Hellen Lora, RETIREMENT ADMINISTRATOR-RAILROAD DINING CAR STEWARD/STEWARDESS [address] [place] [address] [facility]PITALPerry [facility] DermatologyStart: 08-04-2026Medicare Annual Wellness (AWV)Medicare Annual Wellness (AWV)[facility] HealthcareStart: 10-01-2025 End: 22-62-2796Hoxuhtq encounter xyfabzxeb60/09/2025 1:00 PM EST Office Visit [facility] [address] [place] [phone] Rosalva Mane NP [address] [place] [address] [facility] MedicineStart: 81-74-8454Jyfjoarpph A1c measurementDiabetes: Hemoglobin L2MYIJD HealthcareStart: 08-22-2025 End: 37-17-5994Ccwnahz encounter procedureNOKS SWS DERMComment on above:Arrived Start: 10-39-2856Qcnlmdhsk vaccinationInfluenza Vaccine (#1)[facility] Comment on above:Postponed from 06/24/2025 (Patient Refused)Start: 07-05-2025 Screening for malignant neoplasm of colonNOMS HealthcareStart: 06-25-2025 End: 94-35-7342Omewtop encounter procedureHarlan County Community Hospital MedicineComment on above:ArrivedStart: 01-36-9492EGIOV-19 Vaccine ( season)COVID-19 Vaccine ( season)[facility] HospitalStart: 09-99-4384Apqszllgs vaccinationDEL[facility] HealthcareStart: 18-31-4073Ngrwqrsff for malignant neoplasm of colonNOMS HealthcareStart: 05-27-2025 End: 19-69-4189KLK W Auto Differential panel - BloodCBC and differential Lab Routine Screening for deficiency anemia Expected: 05/27/2025 (Approximate), Expires: 05/27/2026[facility] Work Phone: Comment on above:Expected: 05/27/2025 (Approximate), Expires: 05/27/2026Start: 05-27-2025 End: 71-41-4629Wdgxcledsvbnx metabolic 2000 panel - Serum or PlasmaComprehensive metabolic panel Lab Routine Type 2 diabetes mellitus with diabetic neuropathy, without long-term current use of insulin (HCC) Expected: 05/27/2025 (Approximate), Expires: 05/27/2026NO[facility] HealthcareComment on above:Expected: 05/27/2025 (Approximate), Expires: 05/27/2026Start: 05-27-2025 End: 54-90-6273Egbndqqiec A1c/Hemoglobin.total in BloodHemoglobin A1c Lab Routine Type 2 diabetes mellitus with diabetic neuropathy, without long-term current use of insulin (HCC) Expected: 05/27/2025 (Approximate), Expires: 05/27/2026[facility] HealthcareComment on above:Expected: 05/27/2025 (Approximate), Expires: 05/27/2026Start: 05-27-2025 End: 38-75-4822Vmoyq 1996 panel - Serum or PlasmaLipid panel Lab Routine Mixed hyperlipidemia Expected: 05/27/2025 (Approximate), Expires: 05/27/2026[facility] HealthcareComment on above:Expected: 05/27/2025 (Approximate), Expires: 05/27/2026Start: 05-27-2025 End: 55-48-8714Mhopxkxcdbxu/Creatinine panel in random UrineMicroalbumin / creatinine, urine ratio Lab Routine Type 2 diabetes mellitus with diabetic neuropathy, without long-term current use of insulin (HCC) Expected: 05/27/2025 (Approximate), Expires: 05/27/2026[facility] HealthcareComment on above:Expected: 05/27/2025 (Approximate), Expires: 05/27/2026Start: 05-27-2025 End: 42-42-2561Mcqcxovykfp colorectal cancer DNA and occult blood screening [Presence] in StoolCologuard colon cancer screening Lab Routine Screening for colon cancer Expected: 05/27/2025 (Approximate), Expires: 05/27/2026NO[facility] HealthcareComment on above:Expected: 05/27/2025 (Approximate), Expires: 05/27/2026Start: 05-27-2025 End: 84-70-2246Puujqwcu specific Ag [Mass/volume] in Serum or PlasmaPSA Lab Routine Screening for prostate cancer Expected: 05/27/2025 (Approximate), Expires: 05/27/2026[facility] HealthcareComment on above:Expected: 05/27/2025 (Approximate), Expires: 05/27/2026Start: 05-27-2025 End: 94-87-5736Vyeaakz encounter seachswlt16/04/2025 1:00 PM EDT Office Visit [facility] [address] [facility] [phone] Rosalva Mane NP [address] [facility] [place] [address] ArrivedTrinity Community HospitalComment on above: ArrivedStart: 07-17-2025Medicare Annual Wellness (AWV)Medicare Annual Wellness (AWV)[facility] HealthcareStart: 46-77-6202Uygav screening for proteinDiabetes: Urine Protein ScreeningDELTA COMMUNITY [facility]ICAL [facility]ENTER HealthcareStart: 03-43-6865Kurrwvcuk vaccinationInfluenza Vaccine (#1)[facility] HealthcareComment on above:Postponed from 06/24/2024 (Supply/Drug Shortage)Start: 02-19-2025 End: 51-36-5792Cehyoblfbsufr metabolic 2000 panel - Serum or PlasmaComprehensive metabolic panel Lab Routine Primary hypertension (CMS/HCC) Type 2 diabetes mellitus with diabetic neuropathy, without long-term current use of insulin (CMS/HCC) Expected: 02/19/2025 (Approximate), Expires: 02/19/2026[facility] Work Phone: Comment on above:Expected: 02/19/2025 (Approximate), Expires: 02/19/2026Start: 02-19-2025 End: 84-38-3745Eyuzzgxvvy A1c/Hemoglobin.total in BloodHemoglobin A1c Lab Routine Type 2 diabetes mellitus with diabetic neuropathy, without long-term current use of insulin (CMS/HCC) Expected: 02/19/2025 (Approximate), Expires: 02/19/2026[facility] HealthcareComment on above:Expected: 02/19/2025 (Approximate), Expires: 02/19/2026Start: 02-19-2025 End: 26-12-2426Jitrdmw encounter tortkdams71/29/2025 2:00 PM EDT Office Visit [facility] [address] [facility] [phone] Mane NP [address] [place] [address] [facility] ClareR FMComment on above:ArrivedStart: 02-12-2025 End: 50-32-2381Riptpcx encounter tylcwhhee52/22/2025 1:30 PM EDT Office Visit [facility] [address] [facility] [place] [phone] [phone], Christy A, SCRAP HOIST OPERATOR [address] [place] [facility] [place] [address] [facility] FMStart: 07-60-6412Awnalqzisx A1c measurementDiabetes: Hemoglobin K9IPKXK HealthcareStart: 63-72-0932Grlksmiqfumj Vaccine: 65+ Years (1 of 2 - PCV)Pneumococcal Vaccine: 65+ Years (1 of 2 - PCV)[facility] HealthcareComment on above:Postponed from 1963 (Patient Refused)Start: 69-25-1180Wwpfe screening for proteinDiabetes: Urine Protein ScreeningNOLafayette Regional Health CenterStart: 99-91-3850Psnbjntd screeningDiabetes: Retinopathy ScreeningSainte Genevieve County [facility] Hospital Comment on above:Postponed from 07/24/2021 (Other Patient Reasons)Start: 39-97-2970Txflp BMI ScreeningAdult BMI ScreeningProMemorial Hospital SystemStart: 11-13-2024 End: 43-96-7761Wgusxjyrroivh metabolic 2000 panel - Serum or PlasmaComprehensive metabolic panel Lab Routine Type 2 diabetes mellitus with diabetic neuropathy, unspecified (CMS/HCC) Expected: 11/13/2024 (Approximate), Expires: 11/13/2025 [facility] Work Phone: Comment on above:Expected: 11/13/2024 (Approximate), Expires: 11/13/2025Start: 11-13-2024 End: 10-89-2708Otynetoxfv A1c/Hemoglobin.total in BloodHemoglobin A1c Lab Routine Type 2 diabetes mellitus with diabetic neuropathy, unspecified ([facility]) Expected: 11/13/2024 (Approximate), Expires: 11/13/2025NOMS HealthcareComment on above:Expected: 11/13/2024 (Approximate), Expires: 11/13/2025Start: 11-13-2024 End: 78-37-1498Fbzcbbw encounter procedureNOMS FNR FMComment on above:Arrived Start: 08-21-2024 End: 73-06-4520Ydhkybe encounter procedureNOMS SWS DERMComment on above:Arrived Start: 08-13-2024 End: 12-78-3820Mnqpywh encounter procedureNOMS FNR FMComment on above:Arrived Start: 08-13-2024 End: 68-25-0121FR Knee - left 4 ViewsNOMS HealthcareComment on above:Expected: 08/13/2024, Expires: 08/13/2025Start: 08-13-2024 End: 89-87-1145AJ Knee - right 4 ViewsNOMS Healthcare Work Phone: Comment on above:Expected: 08/13/2024, Expires: 08/13/2025Start: 94-05-7137Dgdecebiua A1c measurementDiabetes: Hemoglobin A1C [facility] HealthcareStart: 73-48-2216Mnqlpqlpr vaccinationInfluenza Vaccine (#1)NOM HealthcareStart: 12-09-2023 End: 70-89-4036Pgppsck encounter /16/2024 11:00 AM EST Office Visit [facility] [address] [place] [address] Vidal Curry MD [address] [facility] [place], [phone] [facility] CardiologyStart: 75-65-8021OSBWW-19 Vaccine ()COVID-19 Vaccine ()ProMAnderson County Hospitaltart: 56-13-7497Nadgmxrqu vaccinationInfluenza VaccineGalion Community Hospital SystemStart: 45-67-6610Rbdc Risk ScreeningFall Risk ScreeningTransylvania Regional Hospitaltart: 76-36-5278Aqqdlpyn screeningDiabetes: Retinopathy ScreeningDELTA [facility] HealthcareStart: 2007 Administration of varicella zoster vaccineZoster (Shingles) Vaccine (1 of 2) [facility] SystemStart: 65-91-0275GBhA,Tdap and Td Vaccines (1 - Tdap) DTaP,Tdap and Td Vaccines (1 - Tdap)[facility] SystemStart: 1976 Pneumococcal Vaccine: 65+ Years (1 of 2 - PCV)Pneumococcal Vaccine: 65+ Years (1 of 2 - PCV)[facility] HealthcareStart: 23-76-6504Srwxa BMI Follow Up PlanAdult BMI Follow Up PlanTransylvania Regional Hospitaltart: 24-04-9975Rlhyb BMI ScreeningAdult BMI ScreeningTransylvania Regional Hospitaltart: 68-11-5565Txanjmzryt Screening Depression ScreeningTransylvania Regional Hospitaltart: 85-91-2766Qvlezyu Screening Tobacco ScreeningGalion Community Hospital SystemStart: 94-68-8168SBbF/Tdap/Td Vaccines (1 - Tdap)DTaP/Tdap/Td Vaccines (1 - Tdap)[facility] HospitalStart: 1957 Medicare Annual Wellness VisitMedicare Annual Wellness VisitTransylvania Regional Hospitaltart: 63-19-1167Wsbwgfjux for malignant neoplasm of colonSainte Genevieve County [facility] Immunizations Immunization DateImmunizationNotesCare XpvenyveZvhyubvz23-24-3448bkcnkzqrq virus vaccine, whole virusRenee Nicko DO Work Phone: [facility] HospitalUbzhfncpjv90-94-7090egsqafsze virus vaccine, unspecified formulationScanning ExternalCleveland Clinic Fairview Hospital10-13-2010 influenza virus vaccine, whole virusRenee Nicko DO Work Phone: [facility] HospitalQpphckmzdf81-81-8093dsymfnnlo virus vaccine, whole virusRenee Nicko DO Work Phone: [facility] HospitalXkjlhyiceb53-30-4185lskvnrsmc virus vaccine, whole virusRenee Nicko DO Work Phone: [facility] Payers DatePayer CategoryPayerPolicy [id number] Health InsuranceAARP [id number] [id number] 2022Medicare [id number] [id number] 1960 [id number] [id number] [id number] 2.[id number] 2.0.1.567796.3.57[id number] 2.0.1.653067.3.57[id number] 2.0.1.061626.3.57[id number] 2.840.1.693534.3.57[id number] 2.840.1.683381.3.57[id number] 2..0.1.713272.3.57[id number] 2..0.1.300932.3.57[id number] 2..0.1.618321.3.57[id number] 2.0.1.005174.3.579.2.1259 Social History DateTypeDetailFacilityStart: 03-28-2023 End: 64-40-8832Ijqdwkq smoking status NHISNever smoked tobaccoNOMS Healthcare Start: 03-28-2023 End: 83-78-8187Ohrxcgd use and exposureSmokeless tobacco non-userProMemorial Hospital SystemStart: 05-09-2024 End: 62-64-9664Dzuytpgqv beverage intakeCurrent drinker of alcohol (finding) [facility] SystemStart: 03-29-2023 End: 14-48-5884Kencdyo of Social functionNOMS HealthcareStart: 03-29-2023 End: 77-84-2120Hlmrwlctljw, Afraid, Rape, and Kick questionnaire [HARK][facility] HealthcareWithin the last year, have you been afraid of your partner or ex-partner?NoNOMS HealthcareAre you now , , , , never or living with a partner?Never marriedNOMS HealthcareHow often to you have a drink containing alcohol?Monthly or lessNOMS HealthcareHow many standard drinks containing alcohol do you have on a typical day?1 or 2NOMS HealthcareHow often do you have 6 or more drinks on 1 occasion?NeverNOMS HealthcareStart: 66-67-0757Wro hard is it for you to pay for the very basics like food, housing, medical care, and heatingNot hard at allNOMS HealthcareDo you feel stress - tense, restless, nervous, or anxious, or unable to sleep at night because yourmind is troubled all the time - these days [OSQ]Not at allNOMS Healthcare(I/We) worried whether (my/our) food would run out before (I/we) got money to buy more.Never trueNOKS HealthcareStart: 06-11-5067Egxglrn Comment caffeine: 4 pops dailySainte Genevieve County Memorial HospitalStart: 74-56-0575Hpj assigned at birthNot on fileTransylvania Regional Hospitaltart: 68-71-1793Ioumjq identityIdentifies as male gender (finding)[facility] HospitalTobacc smoking status NHISTobacco smoking consumption unknownCleveland Clinic [facility]view Hospital Medical Equipment Procedure CodeEquipment CodeEquipment Original TextEquipment IdentifierDates [id number], [id number], [id number], [id number]: 10-12-2023 End: 10-29-2024 Functional Status MvrvUzqrzumrysSumaclBpmsdtbi20-19-6077Nrjnhkg Health Questionnaire 2 item (PHQ- 2) [Reported][facility] Clinical Notes 11-16-2023 to 08-22-2025 Note Date & DfqrEzywYcdtkjhf88-38-2183 History of Present illness Narrative* Hellen Lora, RETIREMENT ADMINISTRATOR-RAILROAD DINING CAR STEWARD/STEWARDESS - 08/22/2025 1:05 PM EDT Images from the original note were not included. Subjective Cornell Ritchie is a 69 y.o. male who presents for the following: Psoriasis follow up Location: Back, arms, and legs Duration: Years Associated Factors: Did recently have a flare on the legs, but Vtama cleared this rather quickly. States he is clear today. Psoriasis does however come and go Initial BSA: 10% Joint pain present: No History of Depression: No Treatments tried: TAC 0.1% cream bid/prn from 04/2023-07/2024 Changes made to treatment at last visit: Stopped TAC 0.1% cream. Vtama 1% cream to use daily was sent for the patient. States he was approved for PAP Current treatment: Fluocinonide 0.05% ointment bid/prn, and Vtama 1% cream every day/prn Months of current treatment: 1 year Last TB test: N/A Patient has noticed improvement in itching, scale, and redness since starting current treatment. Happy with current treatment Established patient All pertinent medical history, medications, and allergies were reviewed. General Exam: alert, oriented to person, place, and time, normal affect, well appearing, Unaccompanied A focused exam completed based on patient reported problems, see below: Skin Exam 1. PSORIASIS VULGARIS Arms and Legs, Trunk Well-marginated erythematous papules/plaques with silvery scale. Improved since last visit BSA 10%.Plaques are much thinner today The patient was informed that psoriasis is a chronic condition that can be controlled but not cured. Patient is improved, and happy with his treatment plan at this time. Plan to continue use of Fluocinonide 0.05% ointment bid/prn, and Vtama 1% cream every day/prn. Appropriate use of medication discussed, he voiced understanding. Recommended Soap and Moisturizer handout given. Samples provided. Will send refills of Vtama, declines refills of Fluocinonide today . Plan to follow up in one year, unless flared prior to. This Visit - Tapinarof (Vtama) 1 % cream - Apply 2 g topically Daily To the arms, legs, and back when flared. Hold when clear. 30 days Existing Treatments - fluocinonide (Lidex) 0.05 % ointment - Apply to affected areas bid prn Next Visit: 1 year, psoriasis documented in this encounterSainte Genevieve County Memorial HospitalFaxcnjhfiu31-84-5460 Telephone encounter Note* Telephone Encounter - Radha Steiner - 08/14/2025 11:24 AM EDT Patient called checking on refill- he only has enough left for today and then he will be out. Uses [facility]. Thank you. [facility] HospitalJxzxiucgnc66-96-4122 Miscellaneous Notes* Telephone Encounter - Radha Steiner - 08/14/2025 11:24 AM EDT Patient called checking on refill- he only has enough left for today and then he will be out. [facility]ses [facility]. Thank you. documented in this [facility]10-20-2025 History of Present illness Narrative* Rosalva Mane NP - 08/12/2025 3:45 PM EDT orders documented in this [facility]10-09-2025 Telephone encounter Note* Telephone Encounter - Cindy Reyes MD - 08/01/2025 4:30 PM EDT Approving, but needs appt for additional refills. [facility] HospitalDdijzkrhsi13-89-6257 Miscellaneous Notes* Telephone Encounter - Cindy Reyes MD - 08/01/2025 4:30 PM EDT Approving, but needs appt for additional refills. documented in this [facility]09-02-2025 History of Present illness Narrative* Rosalva Mane NP - 06/25/2025 2:00 PM EDTAssociated Problem(s): Type 2 diabetes mellitus with diabetic neuropathy, without long- term currentuse of insulin (HCC) * Rosalva Mane NP - 06/25/2025 2:00 PM EDTAssociated Problem(s): Primary hypertension * Rosalva Mane NP - 06/25/2025 2:00 PM EDT Subjective ?Quick Links Last Note in Specialty Snapshot Edit RFV/CC Edit Screenings Current Meds Patient ID: Cornell Ritchie is a 69 y.o. male who presents for Diabetes. HPI History of Present Illness The patient presents for evaluation of diabetes. He reports a significant decrease in blood sugar levels since resuming glimepiride and metformin, with an average reading close to 150. The lowest reading was 108 last week, though most other days the readings were higher. Occasionally, he forgets to take his medication. He has run out of lancets and is seeking a refill, questioning the usability of a box of lancets he has at home. He recalls a meal of steak, baked potato, and green beans after which his blood sugar spiked the followingday. He primarily consumes artur lettuce or green leaf lettuce as his green vegetable. There are no reported abdominal issues. He has gained 7 pounds since his last visit and believes there may be a correlation between weight gain and blood pressure reduction. He is considering weight loss as a potential solution. He recalls a period of 10 years when he weighed 300 pounds, followed by a sudden weight loss over 3years down to 220 pounds. During this time, he was not under medical supervision and had not been diagnosed with diabetes. His blood sugar level was 11.7 when he first sought medical attention, but it decreased to 5.5 within 4 to 5 months of treatment. At that time, his weight was in the 220s. He then began to gradually regain weight, reaching the 280s, but never returned to 300 pounds. Concurrently, his blood sugar levels also began to rise. He believes he can reduce his weight to 240 pounds or less and maintain it at that level for some time, which he hopes will help lower his blood sugar levels. Diet: Primarily consumes artur lettuce or green leaf lettuce as green vegetables ?Quick Review Review Full History Edit History Meds - ammonium lactate (Lac-Hydrin) 12 % lotion aspirin (ASPIR) 81 MG EC tablet atorvastatin (Lipitor) 20 MG tablet Dulaglutide (Trulicity) 0.75 MG/0.5ML solution auto-injector Easy Touch Lancets 33G/Twist misc fluocinonide (Lidex) 0.05 % ointment furosemide (Lasix) 20 MG tablet gabapentin (Neurontin) 600 MG tablet glimepiride (Amaryl) 4 MG tablet glucose blood (True Metrix Blood Glucose Test) test strip lisinopril-hydroCHLOROthiazide 20-12.5 MG tablet metFORMIN (Glucophage) 850 MG tablet Tapinarof (Vtama) 1 % cream triamcinolone (Kenalog) 0.1 % cream --- PMH - Bilateral artificial lens implant Cataract Hay fever Lumbago with sciatica, left side Lumbago with sciatica, right side Lumbar spinal stenosis Mild depression Morbid obesity (CMS-HCC) Other chronic pain Scoliosis of lumbar spine, unspecified scoliosis type Skin rash Swelling of ankle Objective ?Quick Links Add Vitals Timeline (Adult) Labs Imaging Results Review Trend Vitals ?? Avoid pulling in long tables of results. Comment on relevant results to support your medical decision making. There were no vitals taken for this visit. Review of Systems Constitutional: Negative for chills [...] dizziness and numbness. Endocrine: Negative. Allergic/Immunologic: Negative. Physical Exam Vitals and nursing note reviewed. [...] is oriented to person, place, and time. Physical Exam Respiratory: Clear to auscultation, no wheezing, rales or rhonchi Other: Blood pressure reading is 128/78 ?Quick Links Full Problem List Allergy Back Pain Cardiology Chronic Pain Diabetes GI Hypertension Assessment & Plan Type 2 diabetes mellitus with diabetic neuropathy, without long-term current use of insulin ([facility]) Primary hypertension Assessment & Plan 1. Diabetes mellitus: - Blood glucose levels have shown improvement since resuming glimepiride and metformin, with an average around 150 mg/dL. - Blood pressure is 128/78. The patient reported a weight gain of 7 pounds since the last visit. - Advised to incorporate more lean proteins and vegetables into the diet while monitoring carbohydrate intake. Consumption of white potatoes should be avoided due to their high carbohydrate content. Advised to opt for frozen vegetables over canned ones to reduce salt intake. - Continue current regimen of metformin and glimepiride. If the pharmacy advises against using lancets, inform the provider so that a new prescription can be provided. Follow-up: A follow-up visit is scheduled in 3 months for a re-evaluation of his diabetes. Diagnoses and all orders for this visit: Type 2 diabetes mellitus with diabetic neuropathy, without long-term current use of insulin (HCC) Primary hypertension -stable continue on current medications documented in this encounterSainte Genevieve County Memorial [id number] History of Present illness Narrative* Rosalva Mane NP - 05/27/2025 1:00 PM EDT Images from the original note were not [...] by direct observation Three Word Registration: Banana, Casa, Chair Clock Drawing: Normal Clock - 2 [...] tenderness or frontal sinus tenderness. Mouth/Throat: Lips: [place]. Mouth: Mucous membranes are moist. Pharynx: Oropharynx [...] Future Morbid obesity due to excess calories ([facility]-HCC) Other chronic pain PAD (peripheral artery disease) Polyneuropathy associated with underlying disease ([facility]) Type 2 diabetes mellitus with diabetic neuropathy, without long-term current use of insulin ([facility])-patient stopped all diabetic medications and just recently [...] colon cancer screening; Future documented in this encounterSainte Genevieve County Memorial [id number] History of Present illness Narrative* Rosalva Mane NP - 02/19/2025 2:00 PM EDT Images from the original note were not included. Cornell Ritchie is a 69 y.o. male presents with chief complaint of Diabetes HPI: HPI Patient is present for a DM follow up. Patient states he checks his blood sugars intermittently. Patient reports his blood sugars have been in the 160's- 200's. His most recent reading was 182 today. [...] neuropathy, without long-term current use of insulin ([facility]) - Comprehensive metabolic panel; Future - Hemoglobin A1c; Future Hypotension, unspecified hypotension type-transferred to ER per POV. Patient refused squad. Report given to ER physician. Irregular heart rate documented in this encounterSainte Genevieve County Memorial [id number] History of Present illness Narrative* Rosalva Mane NP - 11/21/2024 8:06 AM EST Prescription sent documented in this [facility]01-21-2025 History of Present illness Narrative* Rosalva Mane NP - 11/13/2024 1:30 PM EST Images from the original note were not [...] all orders for this visit: Primary hypertension (CMS/HCC)-stable continue on current medications - lisinopril-hydroCHLOROthiazide 20-12.5 MG tablet; Take 1 tablet by mouth Daily Type 2 diabetes mellitus with other skin ulcer (CODE) (CMS/HCC)-stable continue on current medications 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 of skin (CMS/HCC) Type 2 diabetes mellitus with diabetic peripheral angiopathy without gangrene (CMS/HCC) Type 2 diabetes mellitus with diabetic neuropathy, unspecified (CMS/HCC) - Comprehensive metabolic panel; Future - Hemoglobin A1c; Future Morbid (severe) obesity due to excess calories (CMS/HCC) Mixed hyperlipidemia (CMS/HCC) Body mass index (BMI) 35.0-35.9, adult documented in this encounterSainte Genevieve County Memorial [id number] Telephone encounter Note* Telephone Encounter - Yazan Solorzano - 09/11/2024 2:08 PM EST HE DECLINED [facility] [id number] Miscellaneous Notes* Telephone Encounter - Yazan Solorzano - 09/11/2024 2:08 PM EST HE DECLINED * Telephone Encounter - Matilde Trotter MA - 09/07/2024 3:25 PM EST Please see if patient has had an eye exam done this year? If not can he come into the office to have done this week? documented in this encounterSainte Genevieve County Memorial HospitalCcwpotjsth48-76-1354 Telephone encounter Note* Telephone Encounter - Matilde Trotter MA - 09/07/2024 3:25 PM EST Please see if patient has had an eye exam done this year? If not can he come into the office to have done this week? [facility] [id number] History of Present illness Narrative* Hellen Lora APRN-ADWOA - 08/21/2024 1:10 PM EDT Images from the original note were not [...] silvery scale. Flaring today not yet at treatmentgoal. BSA 10%. The patient was informed that psoriasis is a chronic condition that can be controlled but not cured. Patient states he is not bothered enough by his psoriasis to start systemic treatment. Start Vtamacream. Sent to [place] at this time. Patient qualifies for PAP if needed. Patient to follow up if failing to improve on Vtama, otherwise can follow up in 1 year for refills. Tapinarof (Vtama) 1 % cream - Mid Back Apply 2 g topically Daily Related Medications fluocinonide (Lidex) 0.05 % ointment Apply to affected areas bid prn Next Visit: 1 year documented in this encounterSainte Genevieve County Memorial [id number] History of Present illness Narrative* Rosalva Mane, PASQUALE - 08/13/2024 2:00 PM EDT Images from the original note were not [...] does not check sugars. Last dilated eye exam:Has not gone in the last 2 years. [...] History: Procedure Laterality Date CATARACT EXTRACTION 2012 [facility] 05/2019 neg repeat 2020 EXTERNAL EAR SURGERY [...] No follow-ups on file. 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 FOLLOW UP No follow-ups on file. PCP: Scar Handy MD Referring Physician: Greta Maharaj DO [address] [place] [address] documented in this [facility]02-15-2024 Miscellaneous Notes* Telephone Encounter - Cindy Peter CMA - 12/08/2023 3:02 PM EST Left message for patient to remind them to bring their most current medication list with them to their appointment. documented in this [facility]02-15-2024 Telephone encounter Note* Telephone Encounter - Cindy Peter CMA - 12/08/2023 3:02 PM EST Left message for patient to remind them to bring their most current medication list with them to their appointment. [facility]01-24-2024 Miscellaneous Notes* Telephone Encounter - Kristan Cunningham - 11/16/2023 2:40 PM EST This is notification that we have received a referral for the patient. Please reach out to schedulenew patient appointment in your office. Please check the referral tab in appt desk for details and to make sure to assign referral or schedule off of it. Thank you. * Telephone Encounter - ASA Jimenez - 11/16/2023 2:40 PM EST LMOM for the patient to call and schedule their SCRAP HOIST OPERATOR appointment with [facility]. * Telephone Encounter - Cindy Peter CMA - 11/16/2023 2:40 PM EST Phoned pt, roopa on vm to contact office to schedule appt for SCRAP HOIST OPERATOR referral documented in [facility] encounterC[facility] Telephone encounter Note* Telephone Encounter - Kristan Cunningham - 11/16/2023 2:40 PM EST This is notification that we have received a referral for the patient. Please reach out to schedulenew patient appointment in your office. Please check the referral tab in appt desk for details and to make sure to assign referral or schedule off of it. Thank you. [facility]01-24-2024 Telephone encounter Note* Telephone Encounter - ASA Jimenez - 11/16/2023 2:40 PM EST LMOM for the patient to call and schedule their SCRAP HOIST OPERATOR appointment with [facility]. [facility]01-24-2024 Telephone encounter Note* Telephone Encounter - Cindy Peter CMA - 11/16/2023 2:40 PM EST Phoned pt, roopa on to contact office to schedule appt for SCRAP HOIST OPERATOR [facility] Diagnosis Venous stasis dermatitis of both lower extremities documented in this encounter [facility] HealthcareEvaluation [facility]* Diagnosis Type 2 diabetes mellitus with diabetic neuropathy, without long-term current use of insulin ([facility]/HCC) Mixed hyperlipidemia ([facility]) Mixed hyperlipidemia documented in this encounter [facility] HealthcareEvaluation note* Diagnosis Acute pain of right knee- Primary Type 2 diabetes mellitus with diabetic neuropathy, without long-term current use of insulin ([facility]/HCC) Acute pain of left knee Primary hypertension ([facility]) Unspecified essential hypertension documented in this encounter [facility] HealthcareEvaluation note* Diagnosis Type 2 diabetes mellitus with diabetic neuropathy, without long-term current use of insulin ([facility]/HCC) documented in this encounter [facility] HealthcareEvaluation note* Diagnosis Psoriasis vulgaris ([facility])- Primary Other psoriasis documented in this encounter [facility]* Diagnosis Type 2 diabetes mellitus with hyperglycemia, without long-term current use of insulin ([facility]) documented in this encounter [facility]Evaluation note* Diagnosis Primary hypertension ([facility]/HCC)- Primary Unspecified essential hypertension Type 2 diabetes mellitus with other skin ulcer (CODE) ([facility]) 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 of skin ([facility]) Type 2 diabetes mellitus with diabetic peripheral angiopathy without gangrene (CMS/HCC) Type 2 diabetes mellitus with diabetic neuropathy, unspecified (CMS/HCC) Morbid (severe) obesity due to excess calories (CMS/HCC) Mixed hyperlipidemia (CMS/HCC) Mixed hyperlipidemia Body mass index (BMI) 35.0-35.9, adult documented in this encounter [facility]* Diagnosis Type 2 diabetes mellitus with diabetic neuropathy, without long-term current use of insulin ([facility]/HCC)- Primary documented in this encounter [facility]* Diagnosis Essential hypertension- Primary Unspecified essential hypertension [facility]* Diagnosis Primary hypertension (CMS/HCC)- Primary Unspecified essential hypertension Type 2 diabetes mellitus with diabetic neuropathy, without long-term current use of insulin (CMS/[facility]) Hypotension, unspecified hypotension type Irregular heart rate documented in this encounter [facility] HealthcareEvaluation note* Diagnosis Encounter for annual wellness exam in Medicare patient- Primary Screening for deficiency anemia Screening for other and unspecified deficiency anemia Screening for prostate cancer Special screening for malignant neoplasm of prostate Bilateral artificial lens implant Primary hypertension Unspecified essential hypertension Mixed hyperlipidemia Mixed hyperlipidemia Morbid obesity due to excess calories ([facility]) Other chronic pain PAD (peripheral artery disease) Unspecified peripheral vascular disease Polyneuropathy associated with underlying disease (HCC) Type 2 diabetes mellitus with diabetic neuropathy, without long-term current use of insulin (HCC) Spinal stenosis of lumbar region with neurogenic claudication Venous stasis dermatitis of both lower extremities Psoriasis Other psoriasis Degeneration of intervertebral disc of lumbar region, unspecified whether pain present Primary osteoarthritis of knees, bilateral Atopic dermatitis, unspecified type Degeneration of iris (pigmentary), bilateral Screening for colon cancer Special screening for malignant neoplasms, colon documented in this encounter [facility] HealthcareEvaluation note* Diagnosis Type 2 diabetes mellitus with diabetic neuropathy, without long-term current use of insulin (HCC)- Primary Primary hypertension Unspecified essential hypertension documented in this encounter [facility] HealthcareEvaluation note* Diagnosis Type 2 diabetes mellitus with diabetic neuropathy, without long-term current use of insulin (HCC)- Primary Primary hypertension Unspecified essential hypertension Polyneuropathy associated with underlying disease (HCC) documented in this encounter [facility] HealthcareEvaluation note* Diagnosis Type 2 diabetes mellitus with diabetic neuropathy, without long-term current use of insulin (HCC)- Primary Primary hypertension Unspecified essential hypertension Type 2 diabetes mellitus with diabetic neuropathy, without long-term current use of insulin (HCC) documented in this encounter [facility] HealthcareEvaluation note* Diagnosis Type 2 diabetes mellitus with diabetic neuropathy, without long-term current use of insulin (HCC)- Primary Primary hypertension Unspecified essential hypertension Type 2 diabetes mellitus with diabetic neuropathy, without long-term current use of insulin (HCC) documented in this encounter [facility] HealthcareEvaluation note* Diagnosis Type 2 diabetes mellitus with diabetic neuropathy, without long-term current use of insulin (HCC)- Primary Primary hypertension Unspecified essential hypertension Psoriasis vulgaris Other psoriasis documented in this encounter [facility] HealthcareInstructionsNot on filedocumented in this encounterProMedica Health SystemInstructionsNot on filedocumented in this encounterGalion Community Hospital SystemInstructionsNot on filedocumented in this encounterGalion Community Hospital SystemInstructionsNot on filedocumented in this encounterGalion Community Hospital System Summary Purpose Family History No [...] section and content) DATE CREATED AUTHOR 02/06/2022 [facility] [employer] DATE CREATED AUTHOR AUTHOR'S ORGANIZ ATION 03/03/2023 [facility] DATE CREATED AUTHOR AUTHOR'S ORGANIZ ATION 02/21/2025 [facility] DATE CREATED AUTHOR AUTHOR'S ORGANIZ ATION 08/24/2025 [facility] EPIC Reason for Visit (unrecogniz ed section and content) ReasonCommentsMed RefillReasonCommentsDiabetesReasonOnset DateComments Akveeueojpz05/24/2024ReasonCommentsNew PatientNP HTN, IRREG HR SCHED W/ PTEKG, LABS AT PCPSpecialtyDiagnoses / ProceduresReferred By ContactReferred To Contact Cardiology Diagnoses Type 2 diabetes mellitus with hyperglycemia, without long-term current use of insulin ([facility]) Primary hypertension Mixed hyperlipidemia Type 2 diabetes mellitus with diabetic neuropathy, without long-term current use of insulin ([facility]) Irregularly irregular cardiac rhythm Procedures PA OFFICE OUTPATIENT VISIT 60-74 MINS HIGH MDM AMB REFERRAL TO CARDIOLOGY AMB REFERRAL TO CARDIOLOGY Greta Maharaj DO [address] [place] [address] Ronny Lazar MD [address] [place] [address] Referral IDStatusReasonStart DateExpiration DateVisits RequestedVisits [id number] Annual Wellness Visit Subsequent Care Teams (unrecognized sec tion and content) Team MemberRelationshipSpecialtyStart DateEnd Date Greta Maharaj DO [address] [place] [address] PCP - [facility]12/23/23 Cindy Reyes MD [address] [place] [address] [facility] - [facility] Zpgzbwvo66/4/24 Rosalva Mane NP [address] [place] [address] Nurse PractitionerJefferson Hospital07/27/24Team MemberRelationshipSpecialtyStart DateEnd Date Greta Maharaj DO [address] [place] [address] PCP - [facility]12/23/23 Cindy Reyes MD [address] [place] [address] PCP - [facility] Deybfego86/4/24 Rosalva Mane NP [address] [place] [address] Nurse PractitionerBrigham And Women'[facility] Hospital Cpngtbgw91/4/24Team MemberRelationshipSpecialtyStart DateEnd Date Greta Maharaj DO [address] [place] [address] PCP - [facility]12/23/23 Cindy Reyes MD [address] [place] [address] PCP - [facility]Chi [facility] Bexnzlcm10/4/24 Rosalva Mane NP [address] [place] [address] Nurse PractitionerFamassachusetts mental health center Oanagdfz08/4/24Team MemberRelationshipSpecialtyStart DateEnd Date Greta Maharaj DO [address] [place] [address] PCP - [facility]12/23/23 Cindy Reyes MD [address] [place] [address] PCP - [facility] Eadvmgbs94/4/24 Rosalva Mane NP [address] [place] [address] Nurse PractitionerJefferson Hospital07/27/24Team MemberRelationshipSpecialtyStart DateEnd Date Greta Maharaj DO [address] [place] [address] PCP - [facility]12/23/23 Cindy Reyes MD [address] [place] [address] PCP - [facility]Br[facility] Sbhnfpup05/4/24 Rosalva Mane NP [address] [facility] [place] [address] Nurse PractitionerBrigham And Women'S Hospital Qwztnnqu06/4/24Team MemberRelationshipSpecialtyStart DateEnd Date Greta Maharaj DO [address] [facility] [place] [address] PCP - [facility]12/23/23 Cindy Reyes MD [address] [place] [address] PCP - GeneralFamassachusetts mental health center Hjphkqmn74/4/24 Rosalva Mane NP [address] [place] [address] Nurse PractitionerBrigham And Women'[facility] Hospital Ykarhytg50/4/24Team MemberRelationshipSpecialtyStart DateEnd Date Greta Maharaj DO [address] [place] [address] PCP - [facility]12/23/23 Cindy Reyes MD [address] [place] [address] PCP - GeneralJefferson Hospital07/27/24 Rosalva Mane NP [address] [place] [address] Nurse PractitionerChi Health Mercy Corningly Uxkocxtw35/4/24Team MemberRelationshipSpecialtyStart DateEnd Date Greta Maharaj DO [address] [place] [address] PCP - [facility]12/23/23 Cindy Reyes MD [address] [place] [address] PCP - [facility] Ysypofzu28/4/24 Rosalva Mane NP [address] [place] [address] Nurse PractitionerFamily Vkzbhkxs02/4/24Team MemberRelationshipSpecialtyStart DateEnd Date Scar Handy MD [address] [place] [address] PCP - GeneralFamily Medicine04/08/17Team MemberRelationshipSpecialtyStart DateEnd Date Scar Handy MD [address] [place] [address] PCP - GeneralFamily Medicine04/08/17Team MemberRelationshipSpecialtyStart DateEnd Date Scar Handy MD [address] [facility] [place] [address] PCP - GeneralFamily Medicine04/08/17Team MemberRelationshipSpecialtyStart DateEnd Date Scar Handy MD [address] [facility] [place] [address] PCP - GeneralFamily Medicine04/08/17Team MemberRelationshipSpecialtyStart DateEnd Date Cindy Reyes MD [address] [place] [address] PCP - GeneralFamily Gglbsycb78/4/24 Rosalva Mane NP [address] [place] [address] Nurse PractitionerFamily Bjzclfwb10/4/24Team MemberRelationshipSpecialtyStart DateEnd Date Cindy Reyes MD [address] [place] [address] PCP - GeneralFamily Maddancq98/4/24 Rosalva Mane NP [address] [place] [address] Nurse PractitionerJefferson Hospital07/27/24Team MemberRelationshipSpecialtyStart DateEnd Date Cindy Reyes MD [address] [place] [address] PCP - [facility]Br[facility] Uhafdzbq95/4/24 Rosalva Mane NP [address] [place] [address] Nurse PractitionerJefferson Hospital07/27/24Team MemberRelationshipSpecialtyStart DateEnd Date Cindy Reyes MD [address] [place] [address] PCP - GeneralBr[facility] Kqfiuwxm96/4/24 Rosalva Mane NP [address] [place] [address] Nurse PractitionerJefferson Hospital07/27/24Team MemberRelationshipSpecialtyStart DateEnd Date Cindy Reyes MD [address] [place] [id number] [facility] - [facility] [id number]/4/24 Rosalva Mane NP [address] [place] [address] Nurse PractitionerBrigh[facility] And [facility] Qxxdjchl08/4/24Team MemberRelationshipSpecialtyStart DateEnd Date Cindy Reyes MD [address] [place] [address] PCP - [facility]07/27/24 Rosalva Mane NP [address] [place] [address] [facility]Jeff[facility]07/27/24Team MemberRelationshipSpecialtyStart DateEnd Date Cindy Reyes MD [address] [place] [address] PCP - [facility]07/27/24 Rosalva Mane NP [address] [place] [address] [facility] Pract[facility]Jeff[facility]07/27/24Team MemberRelationshipSpecialtyStart DateEnd Cindy Reyes MD [address] [place] [address] PCP - [facility]07/27/24 Rosalva Mane NP [address] [place] [address] Nurse PractitionerJeff[facility]07/27/24 FOR RECORDS PERTAINING TO PATIENTS WHO ARE [...] BE BASED ON THE PRIMARY CLINICAL RECORDS. [facility] [employer] [facility]. provides no warranty or guarantee of the accuracy or completeness of information in this document.
--- NOTE | 2025-09-12 14:06 | PM.WCHP ---
Wound Care H&P: HPI History of Present Illness Narrative: The patient is a pleasant 69-year-old gentleman with history of type 2 diabetes who presents for routine nail care. The patient states his neuropathy often causes pain in his feet. He also notes pain related to elongated toenails. Exam Narrative: Exam Narrative: Derm: Toenails 1 through 10 are thickened, elongated, mycotic, and painful.? No evidence of paronychia.? Skin is diffusely dry, thin, and atrophic. Hemosiderin staining present on the lower legs bilaterally. Vascular: DP and PT pulses are nonpalpable on the right.? DP pulse is 1/4 on the left and PT pulse is nonpalpable on the left. Capillary refill is less than 3 seconds to all toes. Digital hair is absent bilaterally. Neuro: Vibratory sensation is absent bilaterally.? Achilles deep tendon reflex is 1+ bilaterally.? Protective sensation was tested with a monofilament and is present in 1/5 areas tested on the right and 0/5 areas tested on the left.? Musculoskeletal: No gross deformity. Strength 5/5 in all planes bilaterally Assessment and Plan Assessment and Plan (1) Tinea unguium: (2) Diminished pulses in lower extremity: (3) Type 2 diabetes mellitus with diabetic neuropathy, unspecified: Plan Routine nail care performed. Follow-up in 3 months. Acute Procedures Podiatry Nail Debridement Class B Findings Absent posterior tibial pulse: right Advanced trophic changes as evidenced by any three of the following: decreased hair growth, nail changes (thickening), pigmentary changes (discoloring) and skin texture (thin or shiny) Absent dorsalis pedis pulse: right Class C Findings Claudication: No Temperature changes: No Edema: Yes Nail debridement paresthesia (abnormal spontaneous sensations in the feet): No Burning: No Qualifies If: Qualifiers If:: A patient qualifies for nail debridement if they have: 1 class A finding (Q7) 2 class B findings (Q8) OR 1 class B & 2 class C findings in addition to a primary condition (Q9) Nail Procedure Nail Procedure Time out: Yes Nail procedure: other (Toenail debridement) Number of affected nails: 10 Location (toes): left and right Procedure successful: Yes Patient tolerated procedure: well and no complications Additional comments: Sharp debridement of toenails 1 through 10 with nail nippers. Procedure performed without incident and to the patient's satisfaction.
== END 2025-09-12 13:26 | disposition home or self-care (01) ==
LOC: WC 13:26
PROVIDERS: Visit Provider Physician Assistant
DX: B35.1 Tinea unguium (principal); R09.89 Other specified symptoms and signs involving the circulatory and respiratory systems; E11.40 Type 2 diabetes mellitus with diabetic neuropathy, unspecified
CPT/HCPCS: 11721